=== PATIENT | male | born 1935 | race Caucasian/White ===

== ENCOUNTER 2017-12-11 20:46 | Emergency (ER) | payer MEDICARE, MEDICAID ==
[2017-12-11 21:23] LABS: #Eosinphils 0.3 thou/uL (0.0-0.7); #Lymphocytes 1.4 thou/uL (1.20-3.40); #Monocytes 1.1 thou/uL (0.11-0.59); #Neutrophils 8.1 thou/uL (1.40-6.50); %Basophils 0.3 % (0.0-1.0); %Eosinophils 2.6 % (0.0-10.0); %Lymphocytes 12.9 % (21.0-51.0); %Monocytes 10.2 % (0.0-10.0); Hemoglobin 12.8 g/dL (14.0-18.0); Mean Corpuscular HGB CONC 32.3 g/dL (32.0-36.0); Mean Corpuscular Hemoglobin 30.2 pg (27.0-31.0); Mean Corpuscular Volume 93.5 fl (80.0-94.0); Mean Platelet Volume 7.8 fL (7.4-10.4); Platelet Count 220 thou/uL (130-400); RBC Distribution Width 13.7 % (11.5-14.5); Red Blood Cell (RBC) Count 4.25 mill/uL (4.70-6.10)
[2017-12-11 21:29] LABS: INR-International Normal Ratio 2.2; PTT 34.1 SEC (22.9-36.1); Prothrombin Time 25.5 SEC (12.0-14.7)
[2017-12-11 21:41] LABS: ALT (SGPT) 26 U/L (8-55); AST (SGOT) 21 U/L (5-34); Albumin 4.1 g/dL (3.4-4.8); Alkaline Phosphatase 142 U/L (40-150); Anion Gap 14 mmol/L (10-20); BUN (Urea Nitrogen) 39 mg/dL (8.4-25.7); Bilirubin, Total 0.6 mg/dL (0.2-1.2); Calc. Creatinine Clearance 0 mL/min (70-130); Calcium 9.3 mg/dL (7.8-10.44); Carbon Dioxide 29 mmol/L (23-31); Chloride 98 mmol/L (98-107); Estimated GFR-MDRD 51; Globulin 4.1 g/dL (2.4-3.5); Glucose 180 mg/dL (83-110); Potassium 4.6 mmol/L (3.5-5.1); Protein, Total 8.2 g/dL (5.8-8.1); Sodium 136 mmol/L (136-145)
[2017-12-11 21:45] LABS: CKMB 2.5 ng/mL (0-6.6); Troponin I 0.023 ng/mL (< 0.028)
--- NOTE | 2017-12-11 22:23 | CT ---
CT BRAIN WITHOUT CONTRAST: Comparison: 06-18-14 History: Syncope and collapse. Patient fell forward on to his face and both wrists. Technique: Multiple contiguous axial images were obtained in a CT of the brain without contrast. FINDINGS: The brain is normal in morphology and attenuation without focal lesions or confluent areas of infarct ion. There is no evidence of hydrocephalus, intracranial hemorrhage or extraaxial fluid collection. T he calvarium and overlying soft tissues are unremarkable. The visualized paranasal sinuses and mastoi d air cells are well aerated. IMPRESSION: No evidence of acute intracranial abnormality. POS: [facility]
--- NOTE | 2017-12-11 22:48 | RAD ---
SINGLE VIEW OF THE CHEST: Comparison: 07-30-14, 05-13-15 History: Dizziness. FINDINGS: Single view of the chest shows a cardiomediastinal silhouette which is upper limits of normal in size with atherosclerotic calcifications in the aorta. There is no evidence of consolidation, mass or ple ural effusion. IMPRESSION: No evidence of acute cardiopulmonary disease. Atherosclerotic disease. POS: [facility]
--- NOTE | 2018-01-14 15:03 | EKG ---
Test Reason : FALL Blood Pressure : / mmHG Vent. Rate : 094 BPM Atrial Rate : 098 BPM P-R Int : 000 ms QRS Dur : 088 ms QT Int : 358 ms P-R-T Axes : 060 035 059 degrees QTc Int : 447 ms Undetermined rhythm Low voltage QRS Inferior infarct , age undetermined Abnormal ECG Confirmed by BEATA KOVACS ([id number]), video news editor CHUNG FARIAS ([id number]) on 01/14/2018 3:02:24 PM Referred By: MARGUERITE Confirmed By:BEATA KOVACS
== END 2017-12-11 22:52 | disposition home or self-care (01) ==
LOC: ERS 20:46
DX: S00.33XA Contusion of nose, initial encounter (principal); S00.81XA Abrasion of other part of head, initial encounter; I48.91 Unspecified atrial fibrillation; J44.9 Chronic obstructive pulmonary disease, unspecified; I11.0 Hypertensive heart disease with heart failure; I50.9 Heart failure, unspecified; M06.9 Rheumatoid arthritis, unspecified; Z87.891 Personal history of nicotine dependence; Z79.82 Long term (current) use of aspirin; Z79.899 Other long term (current) drug therapy; W07.XXXA Fall from chair, initial encounter
CPT/HCPCS: 70450; 71045; 80053; 82553; 84484; 85025; 85610; 85730; 93005

== ENCOUNTER 2018-08-28 15:03 | Outpatient (CLI) | payer MEDICARE, MEDICAID ==
--- NOTE | 2018-08-28 17:36 | RAD ---
CHEST 2 VIEWS: Date: 08/28/18 COMPARISON: 05/13/15. 12/11/17. HISTORY: COPD. Chest infection. FINDINGS: Atherosclerosis of aorta. Upper normal cardiac silhouette. Pulmonary vessels and hilum are normal. Co stophrenic angles are clear. Lungs are hyperinflated. No consolidation or masses. No pneumothorax or osseous abnormalities. IMPRESSION: 1. Hyperinflation. Chronic changes. 2. Atherosclerosis. POS: [facility]
== END 2018-08-28 15:04 | disposition home or self-care (01) ==
LOC: BICRAD 15:03
PROVIDERS: ATTEND Family Medicine
DX: J44.0 Chronic obstructive pulmonary disease with (acute) lower respiratory infection (principal); J96.11 Chronic respiratory failure with hypoxia; I48.2 Chronic atrial fibrillation; R05 Cough; I70.0 Atherosclerosis of aorta; R91.8 Other nonspecific abnormal finding of lung field
CPT/HCPCS: 71046

== ENCOUNTER 2018-09-02 09:56 | Inpatient (IN) | payer MEDICARE, MEDICAID ==
[2018-09-02] MEDS ORDERED: Albuterol Sulfate 2.5 mg/0.5 ml Neb ONE ×3 (10:33→10:34)
[2018-09-02] MEDS ORDERED: Albuterol Sulfate 2.5 mg/3 ml Neb ONE (10:34)
[2018-09-02 10:35] LABS: Lactate 0.34 mmol/L (0.50-2.20)
[2018-09-02 10:52] LABS: ALT (SGPT) 26 U/L (8-55); AST (SGOT) 30 U/L (5-34); Albumin 3.6 g/dL (3.4-4.8); Alkaline Phosphatase 142 U/L (40-150); Anion Gap 11 mmol/L (10-20); BUN (Urea Nitrogen) 29 mg/dL (8.4-25.7); Bilirubin, Total 0.7 mg/dL (0.2-1.2); Calc. Creatinine Clearance 0 mL/min (70-130); Calcium 9.4 mg/dL (7.8-10.44); Carbon Dioxide 35 mmol/L (23-31); Chloride 96 mmol/L (98-107); Estimated GFR-MDRD 69; Globulin 3.9 g/dL (2.4-3.5); Glucose 159 mg/dL (83-110); Potassium 4.4 mmol/L (3.5-5.1); Protein, Total 7.5 g/dL (5.8-8.1); Sodium 138 mmol/L (136-145)
[2018-09-02 10:56] LABS: #Eosinphils 0.1 thou/uL (0.0-0.7); #Lymphocytes 0.8 thou/uL (1.20-3.40); #Monocytes 0.6 thou/uL (0.11-0.59); #Neutrophils 7.5 thou/uL (1.40-6.50); %Eosinophils 1.3 % (0.0-10.0); %Lymphocytes 8.9 % (21.0-51.0); %Monocytes 6.3 % (0.0-10.0); %Neutrophils 83.5 % (42.0-75.0); Hemoglobin 12.7 g/dL (14.0-18.0); Hypochromia SLIGHT = 6-15 cells (100X) (0-5/hpf); MDiff Complete? YES; Mean Corpuscular HGB CONC 29.5 g/dL (32.0-36.0); Mean Corpuscular Hemoglobin 28.1 pg (27.0-31.0); Mean Corpuscular Volume 95.5 fL (78.0-98.0); Mean Platelet Volume 7.5 fL (7.4-10.4); Platelet Count 205 thou/uL (130-400); Red Blood Cell (RBC) Count 4.53 mill/uL (4.70-6.10); White Blood Cell (WBC) Count 8.9 thou/uL (4.8-10.8)
[2018-09-02 11:03] LABS: Bilirubin Negative (Negative); Blood, Urine Negative (Negative); Glucose, Urine (Dipstick) Negative (Negative); Leukocyte Moderate (Negative); Nitrite Negative (Negative); Protein, Urine (Dipstick) Negative (Neg-Trace); Specific Gravity, Urine 1.015 (1.005-1.030); Urobilinogen 0.2 mg/dL (0.2-1.0)
[2018-09-02 11:10] LABS: Clarity CLEAR (Clear)
[2018-09-02 11:12] LABS: Bacteria/HPF None Seen HPF (None Seen); Hyaline Casts/LPF NONE SEEN LPF (0-3 Hyaline); RBC/HPF None Seen HPF (0-3); Squamous Epithelial 0-3 HPF (0-3); WBC/HPF 0-3 HPF (0-3)
--- NOTE | 2018-09-02 12:09 | RAD ---
PORTABLE CHEST: Date: 09/02/18 HISTORY: Pneumonia follow-up. Congestion and cough. COMPARISON: 08/28/18. FINDINGS: Increased parenchymal density in the right lower lobe when compared to recent exam is suspicious for focal infiltrate or atelectasis. There is mild vascular engorgement, similar to prior exam. Heart size upper normal and stable. IMPRESSION: Question right lower lobe infiltrate or atelectasis, new from recent exam. POS: [facility]
[2018-09-02] MEDS ORDERED: Piperacillin/Tazobactam 4.5 GM VIAL ONE (12:10)
[2018-09-02 13:34] LABS: INR-International Normal Ratio 2.3; PTT 38.9 SEC (22.9-36.1); Prothrombin Time 25.1 SEC (12.0-14.7)
[2018-09-02 13:44] LABS: Actual Bicarbonate (HCO3a) 38.7 mEq/L (22-28); Analyzer IN Cardio ER; Base Excess (BEa) 10.3 mEq/L (-2.0 to +3.0); CO2 Tension 73.3 mmHg (35.0-45.0); Calcium, Ionized 1.12 mmol/L (1.12-1.30); Hemoglobin (Hb) 12.5 g/dL (14.0-18.0); O2 Tension (PaO2) 62.7 mmHg (> 60.0); Potassium - ABG Lab 3.89 mmol/L (3.70-5.30); pH, Arterial 7.34 (7.35-7.45)
[2018-09-02 13:45] LABS: ALV-art Gradient 95.225 (0-20); Puncture Site RBA
--- NOTE | 2018-09-02 13:50 | HP ---
PRIMARY CARE PHYSICIAN: Cristine Brewer M.D. CHIEF COMPLAINT: Acute on chronic respiratory failure with hypoxia, community- acquired pneumonia. HISTORY OF PRESENT ILLNESS: This is an 82-year-old male, who has underlying history of COPD, who came to emergency room with complaint of shortness of breath. Patient reports that, for the last one week, he was having shortness of breath and he was evaluated by primary care physician and patient was given oral antibiotic therapy and steroid without any significant improvement. His oxygen saturation was low and that is why he was recently arranged home oxygen. Last night, he was using oxygen, but in the middle of night, he was feeling palpitations. His heart rate was racing fast. He reports that his heart rate was around 145 and irregular. He does have a history of atrial fibrillation. He was feeling shortness of breath, but he did not have any dizziness. He was coughing, which is normal for him. He denied any chest pain. He denied any pleurisy. He denied any hemoptysis. Patient increased his level of oxygen, but still his saturation was not going up. Per patient, it was remaining in 70s when he was checking with pulse oximetry at home and that is why the patient 's family member called paramedics, and subsequently, the patient was brought to ER. When patient came to ER, he was in respiratory distress. He was in atrial fibrillation with RVR. He was hypoxic. He was not maintaining saturation with nasal cannula oxygen and that is why BiPAP was initiated and after that the patient was feeling better. When I saw him in the emergency room, at that time, respiratory therapy was done off BiPAP, but his oxygen saturation was going variably from 87-90s. He was able to talk in full sentences, but he was gasping for air as well. He denies any UTI symptoms. He denies any constipation, diarrhea, melena, hematochezia. He denies any pain anywhere in his body. He denies any recent upper respiratory infection. He denies any pleurisy. EMERGENCY ROOM COURSE: Patient is given vancomycin 1 gram, Levaquin 750 mg, Zosyn 4.5 grams, albuterol 10 mg, and IV fluid 1 liter. REVIEW OF SYSTEMS: The following complete review of systems was negative, unless otherwise mentioned in the HPI or below: Constitutional: Weight loss or gain, ability to conduct usual activities. Skin: Rash, itching. Eyes: Double vision, pain. ENT/Mouth: Nose bleeding, neck stiffness, pain, tenderness. Cardiovascular: Palpitations, dyspnea on exertion, orthopnea. Respiratory: Shortness of breath, wheezing, cough, hemoptysis, fever, or night sweats. Gastrointestinal: Poor appetite, abdominal pain, heartburn, nausea, vomiting, constipation, or diarrhea. Genitourinary: Urgency, frequency, dysuria, nocturia. Musculoskeletal: Pain, swelling. Neurologic/Psychiatric: Anxiety, depression. Allergy/Immunologic: Skin rash, bleeding tendency. Please see my HPI for pertinent positive and negative. All other review of systems reviewed and negative except as mentioned in the HPI. CURRENT HOME MEDICATIONS: The patient did not bring his home medications, so we are not able to verify his home medication. Based on emergency room record, the patient is on Flomax 0.4 mg, digoxin 125 mcg, torsemide 20 mg, potassium 1 tablet, and albuterol nebulization frequency is not known. PAST MEDICAL HISTORY: Chronic obstructive pulmonary disease, chronic respiratory failure on home oxygen; hypertension; chronic diastolic heart failure; history of TIA; osteoarthritis; hypertension. PAST SURGICAL HISTORY: Right hip replacement and hernia repair. PAST PSYCHIATRIC HISTORY: Reviewed and negative. ALLERGIES: No known drug allergy. FAMILY HISTORY: No strong family history of premature coronary artery disease, stroke, or cancer. SOCIAL HISTORY: Patient is a former smoker. He quit smoking few years ago. He drinks alcohol almost every day basis. He is a former drug abuser; he abused heroin. PHYSICAL EXAMINATION: VITAL SIGNS: On arrival, blood pressure 123/85, pulse 133 and irregular, respiratory rate 24, temperature 98.5, saturation 88% on 2 liter oxygen. Weight 88 kilograms. GENERAL: The patient is currently in [id number] respiratory distress. HEENT: Head: Normocephalic, atraumatic. Eyes: Pupils round and reactive to light. Extraocular muscle intact. ENT: Oropharynx within normal limit, somewhat dry-appearing mucous membrane, no oral lesions. No pharyngeal erythema. He does not have any teeth. NECK: Supple, no JVD, no thyromegaly, no carotid bruit. LUNGS: Air entry significantly reduced bilaterally. He has just a few scattered rales predominantly right lung base. He does have pursed lip breathing as well as muscles of respiration in use. CARDIAC: S1 and S2, irregularly irregular. No murmur elicited, no gallop, no rub. ABDOMEN: Soft, bowel sounds present, nontender, nondistended. No organomegaly , no mass, no suprapubic tenderness. BACK EXAMINATION: Unremarkable, no CVA tenderness. EXTREMITIES: Upper extremity, passive movement of all joints are normal. Lower extremity, bilateral lower extremity chronic skin changes with hyperpigmentation noted. Good distal pulsation. NEUROLOGIC: Nonfocal examination. He moves all 4 limbs. Speech normal. PSYCHIATRIC: Anxious affect. HEMATOLOGICAL SYSTEM: No lymphadenopathy. SKIN: Hyperpigmentation and chronic venous insufficiency type of changes on both lower extremities. SIGNIFICANT LABORATORY DATA: CBC: WBC 8.9, hemoglobin 12.7, platelets 205 with a left shift. BMP: Sodium 138, potassium 4.4, chloride 96, carbon dioxide 35, anion gap 11, BUN 29, creatinine 1.03, glucose 159, calcium 9.4. Lactic acid 0.7. LFT: AST 30, ALT 26, alkaline phosphatase 142, albumin 3.6. BNP 363.5. Urinalysis: Leukocyte esterase moderate. Influenza A and B negative. Chest x-ray, based on my review, right lower lobe infiltration. ASSESSMENT AND PLAN: 1. Acute on chronic respiratory failure with hypoxia and hypercapnia. We will do ABG. The patient has elevated carbon dioxide level, suspecting CO2 retention. We will try to keep oxygen saturation around 90s to prevent hypercapnia. Pulmonary group will be consulted. We will closely monitor for any hemodynamic compromise. 2. Right community-acquired pneumonia, right lower lobe, suspecting streptococcal. His influenza screen is negative. The patient will be given broad-spectrum antibiotic therapy with cefepime, Levaquin, and vancomycin given his chronic obstructive pulmonary disease history, Mucinex 600 mg twice daily. 3. Chronic obstructive pulmonary disease exacerbation. Patient will be given Solu-Medrol 40 mg IV q.6 hourly, DuoNeb every 4 hourly and p.r.n. basis, Dulera 2 puffs inhalation b.i.d., Mucinex 600 mg twice daily. Patient will be given flu and pneumonia vaccination while in hospital. The patient is also on broad- spectrum antibiotic therapy for pneumonia. Pulmonary group will be consulted. We will consider BiPAP as needed basis and closely monitor in hospital. 4. Elevated BNP. We will do echocardiography to assess ejection fraction and other structural abnormality to rule out any cor pulmonale. 5. Urinary tract infection. We will send urine culture and start on broad- spectrum antibiotic therapy. 6. Atrial fibrillation with rapid ventricular response. We will monitor on telemetry floor. We will continue with the digoxin. We will check PT/INR, as the patient states that he is on warfarin therapy. We will obtain patient's home medication and resume while in hospital. We will consider adding Cardizem for rate control if blood pressure permits. 7. Benign enlargement of prostate. Patient is taking Flomax, which we will continue while in hospital. 8. Chronic diastolic heart failure. The patient currently appears to be euvolemic. We are going to obtain echocardiography and continue torsemide 20 mg daily. 9. Deep venous thrombosis prophylaxis. The patient is already on warfarin therapy suspected. We will check PT/INR. If the patient is not on any blood thinner medicine, then he will benefit from chronic anticoagulation. 10. Gastrointestinal prophylaxis. Pepcid 20 mg p.o. b.i.d. CODE STATUS: I spoke with the patient. Patient is a FULL CODE. The patient's daughter is surrogate decision maker. Disposition plan based on clinical course. We are expecting patient's stay in hospital more than 2 midnights. Plan of care discussed with the patient in detail. MTDD
[2018-09-02] MEDS ORDERED: Ondansetron PF 4 MG/2 ML Vial IVP PRN ×2 (14:13→14:19)
[2018-09-02] MEDS ORDERED: Acetaminophen 325 MG TAB PO PRN ×2 (14:13→14:19)
[2018-09-02] MEDS ORDERED: Ondansetron ODT 4 MG TAB SL PRN (14:13)
[2018-09-02] MEDS ORDERED: cloNIDine 0.1 MG TAB PO PRN (14:19)
[2018-09-02] MEDS ORDERED: Calcium Carbonate 500 MG ChewTAB PO PRN (14:19)
[2018-09-02] MEDS ORDERED: Cepastat Lozenges 1 LOZ PO PRN (14:19)
[2018-09-02] MEDS ORDERED: Artificial Tear Sol 15 ML BOT EA EYE PRN (14:19)
[2018-09-02] MEDS ORDERED: Eucerin (Mineral Oil/Petrolatum,White) 30 gm Jar TOP PRN (14:19)
[2018-09-02] MEDS ORDERED: Ondansetron ODT 4 MG TAB PO PRN (14:19)
[2018-09-02] MEDS ORDERED: Loratadine 10 MG TAB PO PRN (14:19)
[2018-09-02] MEDS ORDERED: Loperamide HCl 2 MG CAP PO PRN (14:19)
[2018-09-02] MEDS ORDERED: hydrALAZINE 20 MG/ML VIAL SLOW IVP PRN (14:19)
[2018-09-02] MEDS ORDERED: Diabetic Tussin 200 MG/10 ML UDCUP PO PRN (14:19)
[2018-09-02] MEDS ORDERED: Sodium Chloride 0.65% Nasal 44 ML BOT EA NARE PRN (14:19)
[2018-09-02] MEDS ORDERED: Senokot S 8.6-50 MG TAB PO PRN (14:19)
[2018-09-02] MEDS ORDERED: HYDROcodone/Acetaminophen 5/325 mg Tablet PO PRN (14:19)
[2018-09-02] MEDS ORDERED: Bisacodyl 5 MG TAB PO PRN (14:19)
[2018-09-02] MEDS ORDERED: Bisacodyl 10 MG SUPP PR PRN (14:19)
[2018-09-02] MEDS: Cefepime 2 GM in Sodium Chloride 0.9% 100 ML IVPB SCH (14:57)
[2018-09-02 15:22] VITALS: BMI 24.9
--- NOTE | 2018-09-02 17:03 | CON ---
DATE OF CONSULTATION: 09/02/2018 CONSULTING PHYSICIAN: Mariana Red M.D. REASON FOR CONSULTATION: Pneumonia and COPD exacerbation. Following up with 70 minutes time, of that time, 50% was spent with the patient and/or the patient se en in the hospital. HISTORY OF PRESENT ILLNESS: This is an 82-year-old male who came to the hospital. He has basically been sick for the last 2-3 weeks. He has had cough and congestion. He had a course of antibiotics a nd steroids from his primary care physician. He did not improve. Last week, he was seen in the [facility] and was prescribed some Zithromax. He was also noted to be hypoxic and was started on ho ok oxygen through [facility]. He came in today continued to be short of breath, he was fo und to be hypoxic, also was having a rapid heart rate. He was given breathing treatments, antibiotic s, and placed on BiPAP and subsequently brought to the intermediate care unit. PAST MEDICAL HISTORY: 1. COPD. 2. Chronic hypoxic respiratory failure. 3. Hypertension. 4. Chronic diastolic heart failure. 5. Paroxysmal atrial fibrillation. 6. TIAs. 7. Osteoarthritis. 8. Hypertension. PAST SURGICAL HISTORY: 1. Right hip replacement. 2. Hernia repair. PSYCHIATRIC HISTORY: Unremarkable. ALLERGIES: None. FAMILY MEDICAL HISTORY: Unremarkable. SOCIAL HISTORY: Quit smoking about 10 years ago. Drinks alcohol daily. 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 REVIEW OF SYSTEMS: A 10-point review of systems otherwise negative. MEDICATIONS PRIOR TO ADMISSION: The patient is currently not sure of his medications. PHYSICAL EXAMINATION: VITAL SIGNS: Temperature 97.8, pulse 133, respirations 24, O2 sat 88% on 2 liters now, 99% on 4 lite rs. GENERAL: He is awake, alert, conversant, and in no profound distress. His generalized appearance is disheveled. HEENT: Unremarkable. NECK: No adenopathy or JVD. LUNGS: Crackles in the bases bilaterally. CARDIAC: S1, S2 regular to tachycardic. ABDOMEN: Soft, nontender. EXTREMITIES: No clubbing, cyanosis, or edema. LABORATORY DATA: White blood cell count 8.9, hematocrit 43.2, platelet count 205. INR 2.3, pH 7.34, pCO2 of 73, PO2 of 62. Sodium 130, potassium 4.4, chloride 96, CO2 35, BUN 29, creatinine 1.0, gluc ose 159. Lactate 0.7. BNP 363. LABORATORY AND X-RAY FINDINGS: Chest x-ray shows right lower lobe infiltrate hard to know if this is acute or chronic. ASSESSMENT: 1. Right lower lobe pneumonia. 2. Chronic obstructive pulmonary disease exacerbation. 3. Chronic hypoxic and hypercapnic respiratory failure. RECOMMENDATIONS: I reviewed the medications and agree with the antibiotics, breathing treatments, st eroids, and low flow oxygen. He can use BiPAP as needed. I will be happy to follow with you.
[2018-09-02] MEDS: Mometasone/Formoterol 120 PUFF INHALER INH SCH (18:48)
[2018-09-02] MEDS: Famotidine 20 MG TAB PO SCH (20:38)
[2018-09-02] MEDS: guaiFENesin ER 600 MG TAB PO SCH (20:38)
[2018-09-03] MEDS: Vancomycin HCl 1 GM in Premix Bag 1 BAG IVPB SCH ×2 (00:36→12:05)
[2018-09-03] MEDS: Cefepime 2 GM in Sodium Chloride 0.9% 100 ML IVPB SCH ×2 (03:01→15:40)
[2018-09-03 04:47] LABS: #Basophils 0.1 thou/uL (0.0-0.2); #Lymphocytes 0.3 thou/uL (1.20-3.40); #Monocytes 0.1 thou/uL (0.11-0.59); #Neutrophils 7.8 thou/uL (1.40-6.50); %Basophils 1.5 % (0.0-1.0); %Eosinophils 0.1 % (0.0-10.0); %Lymphocytes 3.5 % (21.0-51.0); %Neutrophils 93.9 % (42.0-75.0); Mean Corpuscular HGB CONC 30.5 g/dL (32.0-36.0); Mean Corpuscular Hemoglobin 29.2 pg (27.0-31.0); Mean Corpuscular Volume 95.7 fL (78.0-98.0); Mean Platelet Volume 7.8 fL (7.4-10.4); Platelet Count 190 thou/uL (130-400); RBC Distribution Width 12.9 % (11.5-14.5); Red Blood Cell (RBC) Count 4.12 mill/uL (4.70-6.10); White Blood Cell (WBC) Count 8.4 thou/uL (4.8-10.8)
[2018-09-03 05:09] LABS: ALT (SGPT) 25 U/L (8-55); AST (SGOT) 28 U/L (5-34); Albumin 3.5 g/dL (3.4-4.8); Alkaline Phosphatase 127 U/L (40-150); Anion Gap 13 mmol/L (10-20); BUN (Urea Nitrogen) 30 mg/dL (8.4-25.7); Bilirubin, Total 0.7 mg/dL (0.2-1.2); Calc. Creatinine Clearance 58 mL/min (70-130); Calcium 8.7 mg/dL (7.8-10.44); Carbon Dioxide 30 mmol/L (23-31); Chloride 94 mmol/L (98-107); Estimated GFR-MDRD 56; Globulin 3.8 g/dL (2.4-3.5); Glucose 257 mg/dL (83-110); Potassium 4.7 mmol/L (3.5-5.1); Protein, Total 7.3 g/dL (5.8-8.1); Sodium 132 mmol/L (136-145)
[2018-09-03] MEDS ORDERED: WARFARIN PO SCH (07:53)
[2018-09-03] MEDS: Mometasone/Formoterol 120 PUFF INHALER INH SCH ×2 (08:15→18:20)
[2018-09-03] MEDS: Torsemide 20 MG TAB PO SCH (08:52)
[2018-09-03] MEDS: Famotidine 20 MG TAB PO SCH ×2 (08:52→20:32)
[2018-09-03] MEDS: guaiFENesin ER 600 MG TAB PO SCH ×2 (08:52→20:40)
[2018-09-03] MEDS: Potassium Chloride 10 MEQ TAB PO SCH (08:52)
[2018-09-03] MEDS: Saccharomyces boulardii 250 MG CAP PO SCH (08:52)
[2018-09-03] MEDS ORDERED: Digoxin 0.125 MG TAB PO SCH (09:00)
--- NOTE | 2018-09-03 11:07 | PDOC.PN ---
- Subjective Encounter Start Date: 09/03/18 Encounter Start Time: 09:45 -: old records requested/rev Patient seen and examined. No new complaints. No overnight events has less cough, less dyspnea - Objective Resuscitation Status: Resuscitation Status FULL:Full Resuscitation MAR Reviewed: Yes Vital Signs & Weight: Vital Signs (12 hours) Temp Pulse Resp BP BP Pulse Ox 09/03/18 08:52 125 H 123/74 09/03/18 08:16 92 L 09/03/18 08:12 108 H 22 H 92 L 09/03/18 07:59 92 L 09/03/18 07:18 98.1 F 88 18 132/80 92 L 09/03/18 04:00 98.4 F 84 26 H 124/70 93 L 09/03/18 03:02 77 20 95 09/03/18 00:00 98.5 F 80 24 H 119/62 95 Weight Weight 197 lb I&O: 09/02/18 09/03/18 09/04/18 06:59 06:59 06:59 Intake Total 2250 Output Total 1400 Balance 850 Result Diagrams: 09/03/18 03:53 09/03/18 03:53 EKG Reviewed by me: Yes (afib rate controlled) Phys Exam - Physical Examination Constitutional: NAD HEENT: PERRLA, moist MMs, sclera anicteric Neck: no JVD, supple Respiratory: wheezing present right base rales, reduced air entry Cardiovascular: no significant murmur, irregular Gastrointestinal: soft, non-tender, no distention, positive bowel sounds Musculoskeletal: no edema, pulses present chronic skin changes Neurological: non-focal, normal sensation, moves all 4 limbs Lymphatic: no nodes Psychiatric: normal affect, A&O x 3 Skin: no rash, normal turgor Dx/Plan (1) Acute on chronic respiratory failure with hypoxia and hypercapnia Code(s): J96.21 - ACUTE AND CHRONIC RESPIRATORY FAILURE WITH HYPOXIA; J96.22 - ACUTE AND CHRONIC RESPIRATORY FAILURE WITH HYPERCAPNIA Status: Acute (2) Atrial fibrillation with RVR Code(s): I48.91 - UNSPECIFIED ATRIAL FIBRILLATION Status: Acute (3) COPD exacerbation Code(s): J44.1 - CHRONIC OBSTRUCTIVE PULMONARY DISEASE W (ACUTE) EXACERBATION Status: Acute (4) Community acquired bacterial pneumonia Code(s): J15.9 - UNSPECIFIED BACTERIAL PNEUMONIA Status: Acute (5) Elevated brain natriuretic peptide (BNP) level Code(s): R79.89 - OTHER SPECIFIED ABNORMAL FINDINGS OF BLOOD CHEMISTRY Status : Acute (6) BPH (benign prostatic hyperplasia) Code(s): N40.0 - BENIGN PROSTATIC HYPERPLASIA WITHOUT LOWER URINRY TRACT SYMP Status: Chronic (7) Chronic anticoagulation Code(s): Z79.01 - ALF (CURRENT) USE OF ANTICOAGULANTS Status: Chronic (8) Chronic arthritis Code(s): M19.90 - UNSPECIFIED OSTEOARTHRITIS, UNSPECIFIED SITE Status: Chronic (9) Hypertension Code(s): I10 - ESSENTIAL (PRIMARY) HYPERTENSION Status: Chronic - Plan cont current plan of care, continue antibiotics, respiratory therapy * continue cefepime, levaquin, vancomycin * continue current optimum medical support for COPD as below * follow culture * pulmonary recommendation appreciated * medication reviewed as below * symptomatic treatment * echo today * repeat labs tomorrow. Review of Systems - Review of Systems Constitutional: weakness. negative: fever, chills, sweats, malaise, other Respiratory: Cough, Shortness of Breath, SOB with Excertion, Wheezing. negative : Dry, Hemoptysis, Pleuritic Pain, Sputum Cardiovascular: negative: chest pain, palpitations, orthopnea, paroxysmal nocturnal dyspnea, edema, light headedness, other Gastrointestinal: negative: Nausea, Vomiting, Abdominal Pain, Diarrhea, Constipation, Melena, Hematochezia, Other Genitourinary: negative: Dysuria, Frequency, Incontinence, Hematuria, Retention , Other Musculoskeletal: negative: Neck Pain, Shoulder Pain, Arm Pain, Back Pain, Hand Pain, Leg Pain, Foot Pain, Other Skin: negative: Rash, Lesions, Bill, Bruising, Other - Medications/Allergies Allergies/Adverse Reactions: Allergies Allergy/AdvReac Type Severity Reaction Status Date / Time No Known Drug Allergies Allergy Verified 07/30/14 22:17 Medications: Current Medications Acetaminophen (Tylenol) 650 mg PO Q4H PRN PRN Reason: Headache/Fever/Mild Pain (1-3) Hydrocodone Bitart/Acetaminophen ([place] 5/325) 1 tab PO Q4H PRN PRN Reason: Moderate Pain (4-6) Albuterol/Ipratropium (Duoneb) 3 ml NEB [id number] JONATHAN Last Admin: 09/03/18 08:12 Dose: 3 ml Artificial Tears (Tears Renewed 15ml Bottle) 2 drop EA EYE PRN PRN PRN Reason: Dry Eyes Bisacodyl (Dulcolax) 10 mg PO DAILYPRN PRN PRN Reason: Constipation Bisacodyl (Dulcolax) 10 mg MI DAILYPRN PRN PRN Reason: Constipation Calcium Carbonate (Tums) 1,000 mg PO Q4H PRN PRN Reason: Heartburn or Indigestion Clonidine (Catapres) 0.1 mg PO Q4H PRN PRN Reason: SBP Greater Than 170 Diltiazem HCl (Cardizem Cd) 120 mg PO DAILY [facility] Last Admin: 09/03/18 08:52 Dose: 120 mg Famotidine (Pepcid) 20 mg PO BID [facility] Last Admin: 09/03/18 08:52 Dose: 20 mg Guaifenesin (Mucinex) 600 mg PO Q12HR [facility] Last Admin: 09/03/18 08:52 Dose: 600 mg Guaifenesin (Robitussin Sf) 200 mg PO Q4H PRN PRN Reason: Cough Hydralazine HCl (Apresoline) 10 mg SLOW IVP Q4H PRN PRN Reason: SBP Greater Than 170 Cefepime HCl 2 gm/ Sodium (Chloride) 100 mls @ 200 mls/hr IVPB 0300,1500 [facility] Last Admin: 09/03/18 03:01 Dose: 100 mls Levofloxacin 750 mg/ Device 150 mls @ 100 mls/hr IVPB Q24HR@1300 JONATHAN Vancomycin HCl 1 gm/ Device 200 mls @ 200 mls/hr IVPB 0100,1300 [facility] Last Admin: 09/03/18 00:36 Dose: 200 mls Loperamide HCl (Imodium) 2 mg PO PRN PRN PRN Reason: Diarrhea/Loose Stools Loratadine (Claritin) 10 mg PO DAILYPRN PRN PRN Reason: Sinus Symptoms Methylprednisolone Sodium Succinate (Solu-Medrol) 40 mg IVP Q6HR [facility] Last Admin: 09/03/18 05:46 Dose: 40 mg Mineral Oil/White Petrolatum (Eucerin Cream) 0 gm TOP BIDPRN PRN PRN Reason: Dry Skin Miscellaneous Medication (Pharmacy To Dose) 1 each IVPB PRN PRN PRN Reason: Pharmacy to dose Miscellaneous Medication (Pharmacy To Dose) 1 each PO .WARFARIN [facility] Mometasone Furoate/Formoterol Fumar (Dulera 200 Mcg/5 Mcg Inhaler) 2 puff INH BID-RT [facility] Last Admin: 09/03/18 08:15 Dose: 2 puff Non-Formulary Medication (Buprenorphine Hcl/Naloxone Hcl [Zubsolv]) 1 tab PO BID [facility] Ondansetron HCl (Zofran Odt) 4 mg PO Q6H PRN PRN Reason: Nausea/Vomiting Ondansetron HCl (Zofran) 4 mg IVP Q6H PRN PRN Reason: Nausea/Vomiting Potassium Chloride (Klor-Con 10) 10 meq PO QAM-WM [facility] Last Admin: 09/03/18 08:52 Dose: 10 meq Saccharomyces Boulardii (Florastor) 250 mg PO DAILY [facility] Last Admin: 09/03/18 08:52 Dose: 250 mg Senna/Docusate Sodium (Senokot S) 2 tab PO BID PRN PRN Reason: Constipation Sodium Chloride ([place] Nasal [place] 0.65%) 0 ml EA NARE QIDPRN PRN PRN Reason: Nasal Congestion Tamsulosin HCl (Flomax) 0.4 mg PO QPM [facility] Throat Lozenges (Cepastat Lozenges) 1 bucky PO Q2H PRN PRN Reason: Sore Throat Torsemide (Demadex) 20 mg PO DAILY [facility] Last Admin: 09/03/18 08:52 Dose: 20 mg Warfarin Sodium (Coumadin) 2 mg PO 1700 [facility]
--- NOTE | 2018-09-03 11:26 | PRG ---
DATE OF SERVICE: 09/03/2018 SUBJECTIVE: He is feeling better today. He did not have to use the BiPAP last night. OBJECTIVE: VITAL SIGNS: Temperature is 98.1, pulse between 88-125, blood pressure 123/74, O2 sat 92% on 4 liter s. HEENT: Unremarkable. NECK: No adenopathy, no JVD. LUNGS: No wheezing, but has some crackles in the right lower lobe. CARDIAC: S1 and S2 regular. ABDOMEN: Soft. EXTREMITIES: No edema. LABORATORY DATA: White blood cell count 8.4, hematocrit 39.5, platelet count 190. Sodium 132, potas sium 4.7, chloride 94, CO2 30, BUN 30, creatinine 1.2, glucose 257. ASSESSMENT: 1. Right lower lobe pneumonia. 2. Chronic obstructive pulmonary disease exacerbation. 3. Chronic hypoxic and hypercapnic respiratory failure. PLAN: The patient looks stable for transfer out to the floor. He needs to have his INR checked ally y since he is on Coumadin. BiPAP order could be stopped. I would anticipate him being able to go ho me in the next 24-48 hours.
[2018-09-03] MEDS ORDERED: Warfarin Sodium 2 MG TAB PO SCH (17:00)
[2018-09-03] MEDS ORDERED: Tamsulosin HCl 0.4 MG CAP PO SCH (21:00)
[2018-09-03] MEDS ORDERED: BUPRENORPHINE HCL PO SCH (21:00)
[2018-09-03] MEDS ORDERED: NALOXONE HCL PO SCH (21:00)
[2018-09-04 00:41] LABS: Vancomycin, Trough 17.2 ug/mL
[2018-09-04] MEDS: Vancomycin HCl 1 GM in Premix Bag 1 BAG IVPB SCH (01:12)
[2018-09-04] MEDS: Cefepime 2 GM in Sodium Chloride 0.9% 100 ML IVPB SCH ×2 (03:45→14:39)
[2018-09-04 04:44] LABS: #Lymphocytes 0.3 thou/uL (1.20-3.40); #Monocytes 0.5 thou/uL (0.11-0.59); #Neutrophils 11.8 thou/uL (1.40-6.50); %Eosinophils 0.1 % (0.0-10.0); %Lymphocytes 2.2 % (21.0-51.0); %Monocytes 3.7 % (0.0-10.0); Hemoglobin 11.7 g/dL (14.0-18.0); Mean Corpuscular HGB CONC 29.8 g/dL (32.0-36.0); Mean Corpuscular Hemoglobin 28.2 pg (27.0-31.0); Mean Corpuscular Volume 94.5 fL (78.0-98.0); Mean Platelet Volume 8.1 fL (7.4-10.4); Platelet Count 186 thou/uL (130-400); RBC Distribution Width 12.9 % (11.5-14.5); Red Blood Cell (RBC) Count 4.16 mill/uL (4.70-6.10); White Blood Cell (WBC) Count 12.5 thou/uL (4.8-10.8)
[2018-09-04 04:45] LABS: Prothrombin Time 30.8 SEC (12.0-14.7)
[2018-09-04 04:49] LABS: Anion Gap 13 mmol/L (10-20); BUN (Urea Nitrogen) 37 mg/dL (8.4-25.7); Calc. Creatinine Clearance 53 mL/min (70-130); Calcium 8.4 mg/dL (7.8-10.44); Carbon Dioxide 29 mmol/L (23-31); Chloride 94 mmol/L (98-107); Estimated GFR-MDRD 50; Glucose 261 mg/dL (83-110); Potassium 4.5 mmol/L (3.5-5.1); Sodium 131 mmol/L (136-145)
[2018-09-04] MEDS: Mometasone/Formoterol 120 PUFF INHALER INH SCH ×2 (07:56→18:39)
[2018-09-04] MEDS: Saccharomyces boulardii 250 MG CAP PO SCH (08:44)
[2018-09-04] MEDS: Potassium Chloride 10 MEQ TAB PO SCH (08:44)
[2018-09-04] MEDS: Doxycycline 100 MG CAP PO SCH ×2 (08:45→21:41)
[2018-09-04] MEDS: Torsemide 20 MG TAB PO SCH (08:46)
[2018-09-04] MEDS: Famotidine 20 MG TAB PO SCH ×2 (08:46→21:41)
[2018-09-04] MEDS: guaiFENesin ER 600 MG TAB PO SCH ×2 (08:46→21:41)
[2018-09-04] MEDS: Tamsulosin HCl 0.4 MG CAP PO SCH (09:41)
[2018-09-04] MEDS: Digoxin 0.125 MG TAB PO SCH (09:41)
--- NOTE | 2018-09-04 09:52 | PDOC.PN ---
- Subjective Encounter Start Date: 09/04/18 Encounter Start Time: 07:00 Patient seen and examined. No new complaints. No overnight events - Objective Resuscitation Status: Resuscitation Status FULL:Full Resuscitation MAR Reviewed: Yes Vital Signs & Weight: Vital Signs (12 hours) Temp Pulse Resp BP BP BP Pulse Ox 09/04/18 09:41 102 H 09/04/18 08:45 108 H 126/62 09/04/18 08:00 98.7 F 108 H 18 126/62 95 09/04/18 07:58 93 L 09/04/18 07:56 103 H 20 93 L 09/04/18 07:54 103 H 20 93 L 09/04/18 03:56 97.7 F 89 16 135/63 94 L 09/04/18 02:21 97 18 95 09/04/18 00:50 98 18 95 09/03/18 23:23 97.8 F 99 16 136/73 92 L Weight Weight 456 lb 12.765 oz I&O: 09/03/18 09/04/18 09/05/18 06:59 06:59 06:59 Intake Total 2250 2781 Output Total 1400 1875 Balance 850 906 Result Diagrams: 09/04/18 04:08 09/04/18 04:08 Phys Exam - Physical Examination Constitutional: NAD HEENT: PERRLA, moist MMs, sclera anicteric Neck: no JVD, supple Respiratory: wheezing present scattered rales+ Cardiovascular: RRR, no significant murmur, no rub Gastrointestinal: soft, non-tender, no distention, positive bowel sounds Musculoskeletal: no edema, pulses present Neurological: non-focal, normal sensation Lymphatic: no nodes Psychiatric: normal affect, A&O x 3 Skin: no rash, normal turgor Dx/Plan (1) Acute on chronic respiratory failure with hypoxia and hypercapnia Code(s): J96.21 - ACUTE AND CHRONIC RESPIRATORY FAILURE WITH HYPOXIA; J96.22 - ACUTE AND CHRONIC RESPIRATORY FAILURE WITH HYPERCAPNIA Status: Acute (2) Atrial fibrillation with RVR Code(s): I48.91 - UNSPECIFIED ATRIAL FIBRILLATION Status: Acute Comment: now rate controlled (3) COPD exacerbation Code(s): J44.1 - CHRONIC OBSTRUCTIVE PULMONARY DISEASE W (ACUTE) EXACERBATION Status: Acute (4) Community acquired bacterial pneumonia Code(s): J15.9 - UNSPECIFIED BACTERIAL PNEUMONIA Status: Acute (5) Elevated brain natriuretic peptide (BNP) level Code(s): R79.89 - OTHER SPECIFIED ABNORMAL FINDINGS OF BLOOD CHEMISTRY Status : Acute (6) BPH (benign prostatic hyperplasia) Code(s): N40.0 - BENIGN PROSTATIC HYPERPLASIA WITHOUT LOWER URINRY TRACT SYMP Status: Chronic (7) Chronic anticoagulation Code(s): Z79.01 - SLASH TRIMMER (CURRENT) USE OF ANTICOAGULANTS Status: Chronic (8) Chronic arthritis Code(s): M19.90 - UNSPECIFIED OSTEOARTHRITIS, UNSPECIFIED SITE Status: Chronic (9) Hypertension Code(s): I10 - ESSENTIAL (PRIMARY) HYPERTENSION Status: Chronic - Plan cont current plan of care, continue antibiotics, respiratory therapy * DC Vancomycin and levaquin * continue cefepime * add doxycycline * reduce solumedro 40 mg iv q 8 hourly * repeat labs tomorrow * ambulate with PT * medication reviewed as below * symptomatic treatment. Review of Systems - Review of Systems Eyes: negative: Pain, Vision Change, Conjunctivae Inflammation, Eyelid Inflammation, Redness, Other ENT: negative: Ear Pain, Ear Discharge, Nose Pain, Nose Discharge, Nose Congestion, Mouth Pain, Mouth Swelling, Throat Pain, Throat Swelling, Other Respiratory: Cough, Shortness of Breath, SOB with Excertion. negative: Dry, Hemoptysis, Pleuritic Pain, Sputum, Wheezing Cardiovascular: negative: chest pain, palpitations, orthopnea, paroxysmal nocturnal dyspnea, edema, light headedness, other Gastrointestinal: negative: Nausea, Vomiting, Abdominal Pain, Diarrhea, Constipation, Melena, Hematochezia, Other Genitourinary: negative: Dysuria, Frequency, Incontinence, Hematuria, Retention , Other Musculoskeletal: negative: Neck Pain, Shoulder Pain, Arm Pain, Back Pain, Hand Pain, Leg Pain, Foot Pain, Other Skin: negative: Rash, Lesions, Bill, Bruising, Other - Medications/Allergies Allergies/Adverse Reactions: Allergies Allergy/AdvReac Type Severity Reaction Status Date / Time No Known Drug Allergies Allergy Verified 07/30/14 22:17 Medications: Current Medications Acetaminophen (Tylenol) 650 mg PO Q4H PRN PRN Reason: Headache/Fever/Mild Pain (1-3) Hydrocodone Bitart/Acetaminophen ([place] 5/325) 1 tab PO Q4H PRN PRN Reason: Moderate Pain (4-6) Albuterol/Ipratropium (Duoneb) 3 ml NEB Q0UI-CH [facility] Last Admin: 09/04/18 07:54 Dose: 3 ml Artificial Tears (Tears Renewed 15ml Bottle) 2 drop EA EYE PRN PRN PRN Reason: Dry Eyes Bisacodyl (Dulcolax) 10 mg PO DAILYPRN PRN PRN Reason: Constipation Bisacodyl (Dulcolax) 10 mg [place] DAILYPRN PRN PRN Reason: Constipation Calcium Carbonate (Tums) 1,000 mg PO Q4H PRN PRN Reason: Heartburn or Indigestion Clonidine (Catapres) 0.1 mg PO Q4H PRN PRN Reason: SBP Greater Than 170 Digoxin (Lanoxin) 0.125 mg PO MoWeFr@0900 [facility] Last Admin: 09/04/18 09:41 Dose: 0.125 mg Diltiazem HCl (Cardizem Cd) 120 mg PO DAILY [facility] Last Admin: 09/04/18 08:45 Dose: 120 mg Doxycycline Hyclate (Vibramycin) 100 mg PO BID [facility] Last Admin: 09/04/18 08:45 Dose: 100 mg Famotidine (Pepcid) 20 mg PO BID [facility] Last Admin: 09/04/18 08:46 Dose: 20 mg Guaifenesin (Mucinex) 600 mg PO Q12HR [facility] Last Admin: 09/04/18 08:46 Dose: 600 mg Guaifenesin (Robitussin Sf) 200 mg PO Q4H PRN PRN Reason: Cough Hydralazine HCl (Apresoline) 10 mg SLOW IVP Q4H PRN PRN Reason: SBP Greater Than 170 Cefepime HCl 2 gm/ Sodium (Chloride) 100 mls @ 200 mls/hr IVPB 0300,1500 [facility] Last Admin: 09/04/18 03:45 Dose: 100 mls Loperamide HCl (Imodium) 2 mg PO PRN PRN PRN Reason: Diarrhea/Loose Stools Loratadine (Claritin) 10 mg PO DAILYPRN PRN PRN Reason: Sinus Symptoms Methylprednisolone Sodium Succinate (Solu-Medrol) 40 mg IVP Q8HR [facility] Mineral Oil/White Petrolatum (Eucerin Cream) 0 gm TOP BIDPRN PRN PRN Reason: Dry Skin Miscellaneous Medication (Pharmacy To Dose) 1 each PO .WARFARIN JONATHAN Mometasone Furoate/Formoterol Fumar (Dulera 200 Mcg/5 Mcg Inhaler) 2 puff INH BID-RT [facility] Last Admin: 09/04/18 07:56 Dose: 2 puff Ondansetron HCl (Zofran Odt) 4 mg PO Q6H PRN PRN Reason: Nausea/Vomiting Ondansetron HCl (Zofran) 4 mg IVP Q6H PRN PRN Reason: Nausea/Vomiting Buprenorphine Hcl/Naloxone Hcl [ Zubsolv] 1 Tab 0 each PO BID [facility] Potassium Chloride (Klor-Con 10) 10 meq PO QAM-WM [facility] Last Admin: 09/04/18 08:44 Dose: 10 meq Saccharomyces Boulardii (Florastor) 250 mg PO DAILY [facility] Last Admin: 09/04/18 08:44 Dose: 250 mg Senna/Docusate Sodium (Senokot S) 2 tab PO BID PRN PRN Reason: Constipation Last Admin: 09/04/18 09:45 Dose: 2 tab Sodium Chloride ([place] Nasal [place] 0.65%) 0 ml EA NARE QIDPRN PRN PRN Reason: Nasal Congestion Sodium Chloride (Flush - Normal Saline) 10 ml IVF Q12HR [facility] Sodium Chloride (Flush - Normal Saline) 10 ml IVF PRN PRN PRN Reason: Saline Flush Tamsulosin HCl (Flomax) 0.4 mg PO QAM [facility] Last Admin: 09/04/18 09:41 Dose: 0.4 mg Throat Lozenges (Cepastat Lozenges) 1 bucky PO Q2H PRN PRN Reason: Sore Throat Torsemide (Demadex) 20 mg PO DAILY [facility] Last Admin: 09/04/18 08:46 Dose: 20 mg Warfarin Sodium (Coumadin) 2 mg PO 1700 [facility]
--- NOTE | 2018-09-04 10:01 | PRG ---
DATE OF SERVICE: 09/04/2018 Mr. Verdugo is feeling better. PHYSICAL EXAMINATION: VITAL SIGNS: Temperature is 98.7, pulse 108, blood pressure 126/60, O2 saturation 95% on room air. HEENT: Unremarkable. NECK: No JVD. LUNGS: He has a mild expiratory wheeze bilaterally. CARDIAC: S1 and S2 regular. ABDOMEN: Soft. EXTREMITIES: No edema. LABORATORY DATA: White blood cell count 12.5, hematocrit 39, platelet count 186. Sodium 131, potass ium 4.5, chloride 94, CO2 29, BUN 37, creatinine 1.4, glucose 261. Echocardiogram demonstrates fairly normal EF with tricuspid regurgitation. ASSESSMENT: 1. Right lower lobe pneumonia. 2. Chronic obstructive pulmonary disease with exacerbation. 3. Chronic hypoxic and hypercapnic respiratory failure. PLAN: The patient can be converted over to oral antibiotics at any time. I think he will probably r brittany for discharge by tomorrow.
[2018-09-05] MEDS: Cefepime 2 GM in Sodium Chloride 0.9% 100 ML IVPB SCH ×2 (02:59→14:40)
[2018-09-05 05:55] LABS: INR-International Normal Ratio 2.7
[2018-09-05 06:04] LABS: #Lymphocytes 0.3 thou/uL (1.20-3.40); #Monocytes 0.4 thou/uL (0.11-0.59); %Eosinophils 0.2 % (0.0-10.0); %Lymphocytes 3.9 % (21.0-51.0); %Monocytes 4.9 % (0.0-10.0); %Neutrophils 91.1 % (42.0-75.0); Hemoglobin 12.4 g/dL (14.0-18.0); Mean Corpuscular HGB CONC 29.9 g/dL (32.0-36.0); Mean Corpuscular Hemoglobin 28.2 pg (27.0-31.0); Mean Corpuscular Volume 94.2 fL (78.0-98.0); Mean Platelet Volume 8.1 fL (7.4-10.4); Platelet Count 192 thou/uL (130-400); RBC Distribution Width 13.1 % (11.5-14.5); Red Blood Cell (RBC) Count 4.39 mill/uL (4.70-6.10); White Blood Cell (WBC) Count 7.6 thou/uL (4.8-10.8)
[2018-09-05] MEDS: Mometasone/Formoterol 120 PUFF INHALER INH SCH ×2 (06:06→18:47)
[2018-09-05 06:08] LABS: Anion Gap 11 mmol/L (10-20); BUN (Urea Nitrogen) 48 mg/dL (8.4-25.7); Calc. Creatinine Clearance 121 mL/min (70-130); Calcium 8.6 mg/dL (7.8-10.44); Carbon Dioxide 32 mmol/L (23-31); Chloride 95 mmol/L (98-107); Estimated GFR-MDRD 49; Glucose 184 mg/dL (83-110); Potassium 4.7 mmol/L (3.5-5.1); Sodium 133 mmol/L (136-145)
--- NOTE | 2018-09-05 07:50 | PDOC.PN ---
- Subjective Encounter Start Date: 09/05/18 Encounter Start Time: 06:30 pt is doing fine, has less cough and less dyspnea, now able to ambulate, no fever, no chest pain - Objective Resuscitation Status: Resuscitation Status FULL:Full Resuscitation MAR Reviewed: Yes Vital Signs & Weight: Vital Signs (12 hours) Temp Pulse Resp BP BP Pulse Ox 09/05/18 06:06 93 16 96 09/05/18 03:55 97.4 F L 88 16 143/70 H 93 L 09/05/18 02:40 87 18 91 L 09/04/18 23:59 97.8 F 104 H 20 104/71 09/04/18 22:49 98 20 93 L 09/04/18 20:00 98.3 F 94 16 136/64 94 L Weight Weight 463 lb 3.059 oz I&O: 09/04/18 09/05/18 09/06/18 06:59 06:59 06:59 Intake Total 2781 1670 Output Total 1875 600 Balance 906 1070 Result Diagrams: 09/05/18 05:33 09/05/18 05:33 Phys Exam - Physical Examination Constitutional: NAD HEENT: PERRLA, moist MMs, sclera anicteric Neck: no JVD, supple few wheeze and few scattered rales+ Cardiovascular: RRR, no significant murmur, no rub Gastrointestinal: soft, non-tender, no distention, positive bowel sounds Musculoskeletal: no edema, pulses present chronic skin changes Neurological: non-focal, normal sensation, moves all 4 limbs Lymphatic: no nodes Psychiatric: normal affect, A&O x 3 Skin: no rash, normal turgor Dx/Plan (1) Acute on chronic respiratory failure with hypoxia and hypercapnia Code(s): J96.21 - ACUTE AND CHRONIC RESPIRATORY FAILURE WITH HYPOXIA; J96.22 - ACUTE AND CHRONIC RESPIRATORY FAILURE WITH HYPERCAPNIA Status: Acute (2) Atrial fibrillation with RVR Code(s): I48.91 - UNSPECIFIED ATRIAL FIBRILLATION Status: Acute Comment: now rate controlled (3) COPD exacerbation Code(s): J44.1 - CHRONIC OBSTRUCTIVE PULMONARY DISEASE W (ACUTE) EXACERBATION Status: Acute (4) Community acquired bacterial pneumonia Code(s): J15.9 - UNSPECIFIED BACTERIAL PNEUMONIA Status: Acute (5) Elevated brain natriuretic peptide (BNP) level Code(s): R79.89 - OTHER SPECIFIED ABNORMAL FINDINGS OF BLOOD CHEMISTRY Status : Acute (6) BPH (benign prostatic hyperplasia) Code(s): N40.0 - BENIGN PROSTATIC HYPERPLASIA WITHOUT LOWER URINRY TRACT SYMP Status: Chronic (7) Chronic anticoagulation Code(s): Z79.01 - SENIOR CHEMIST (CURRENT) USE OF ANTICOAGULANTS Status: Chronic (8) Chronic arthritis Code(s): M19.90 - UNSPECIFIED OSTEOARTHRITIS, UNSPECIFIED SITE Status: Chronic (9) Hypertension Code(s): I10 - ESSENTIAL (PRIMARY) HYPERTENSION Status: Chronic - Plan cont current plan of care, continue antibiotics, respiratory therapy * today will reduce solumedrol * continue cefepime and doxycycline * will plan for discharge tomorrow morning * medication reviewed as below * symptomatic treatment. Review of Systems - Review of Systems ENT: negative: Ear Pain, Ear Discharge, Nose Pain, Nose Discharge, Nose Congestion, Mouth Pain, Mouth Swelling, Throat Pain, Throat Swelling, Other Respiratory: Cough, SOB with Excertion. negative: Dry, Shortness of Breath, Hemoptysis, Pleuritic Pain, Sputum, Wheezing Cardiovascular: negative: chest pain, palpitations, orthopnea, paroxysmal nocturnal dyspnea, edema, light headedness, other Gastrointestinal: negative: Nausea, Vomiting, Abdominal Pain, Diarrhea, Constipation, Melena, Hematochezia, Other Genitourinary: negative: Dysuria, Frequency, Incontinence, Hematuria, Retention , Other Musculoskeletal: negative: Neck Pain, Shoulder Pain, Arm Pain, Back Pain, Hand Pain, Leg Pain, Foot Pain, Other Skin: negative: Rash, Lesions, Bill, Bruising, Other - Medications/Allergies Allergies/Adverse Reactions: Allergies Allergy/AdvReac Type Severity Reaction Status Date / Time No Known Drug Allergies Allergy Verified 07/30/14 22:17 Medications: Current Medications Acetaminophen (Tylenol) 650 mg PO Q4H PRN PRN Reason: Headache/Fever/Mild Pain (1-3) Hydrocodone Bitart/Acetaminophen ([place] 5/325) 1 tab PO Q4H PRN PRN Reason: Moderate Pain (4-6) Albuterol/Ipratropium (Duoneb) 3 ml NEB [id number] JONATH[facility] Last Admin: 09/05/18 06:06 Dose: 3 ml Artificial Tears (Tears Renewed 15ml Bottle) 2 drop EA EYE PRN PRN PRN Reason: Dry Eyes Bisacodyl (Dulcolax) 10 mg PO DAILYPRN PRN PRN Reason: Constipation Bisacodyl (Dulcolax) 10 mg [place] DAILYPRN PRN PRN Reason: Constipation Calcium Carbonate (Tums) 1,000 mg PO Q4H PRN PRN Reason: Heartburn or Indigestion Clonidine (Catapres) 0.1 mg PO Q4H PRN PRN Reason: SBP Greater Than 170 Digoxin (Lanoxin) 0.125 mg PO MoWeFr@0900 [facility] Last Admin: 09/04/18 09:41 Dose: 0.125 mg Diltiazem HCl (Cardizem Cd) 120 mg PO DAILY [facility] Last Admin: 09/04/18 08:45 Dose: 120 mg Doxycycline Hyclate (Vibramycin) 100 mg PO BID [facility] Last Admin: 09/04/18 21:41 Dose: 100 mg Famotidine (Pepcid) 20 mg PO BID [facility] Last Admin: 09/04/18 21:41 Dose: 20 mg Guaifenesin (Mucinex) 600 mg PO Q12HR [facility] Last Admin: 09/04/18 21:41 Dose: 600 mg Guaifenesin (Robitussin Sf) 200 mg PO Q4H PRN PRN Reason: Cough Hydralazine HCl (Apresoline) 10 mg SLOW IVP Q4H PRN PRN Reason: SBP Greater Than 170 Cefepime HCl 2 gm/ Sodium (Chloride) 100 mls @ 200 mls/hr IVPB 0300,1500 [facility] Last Admin: 09/05/18 02:59 Dose: 100 mls Loperamide HCl (Imodium) 2 mg PO PRN PRN PRN Reason: Diarrhea/Loose Stools Loratadine (Claritin) 10 mg PO DAILYPRN PRN PRN Reason: Sinus Symptoms Methylprednisolone Sodium Succinate (Solu-Medrol) 20 mg IVP Q8HR [facility] Mineral Oil/White Petrolatum (Eucerin Cream) 0 gm TOP BIDPRN PRN PRN Reason: Dry Skin Miscellaneous Medication (Pharmacy To Dose) 1 each PO .WARFARIN [facility] Mometasone Furoate/Formoterol Fumar (Dulera 200 Mcg/5 Mcg Inhaler) 2 puff INH BID-RT [facility] Last Admin: 09/05/18 06:06 Dose: 2 puff Ondansetron HCl (Zofran Odt) 4 mg PO Q6H PRN PRN Reason: Nausea/Vomiting Ondansetron HCl (Zofran) 4 mg IVP Q6H PRN PRN Reason: Nausea/Vomiting Buprenorphine Hcl/Naloxone Hcl [ Zubsolv] 1 Tab 0 each PO BID [facility] Potassium Chloride (Klor-Con 10) 10 meq PO QAM-WM [facility] Last Admin: 09/04/18 08:44 Dose: 10 meq Saccharomyces Boulardii (Florastor) 250 mg PO DAILY [facility] Last Admin: 09/04/18 08:44 Dose: 250 mg Senna/Docusate Sodium (Senokot S) 2 tab PO BID PRN PRN Reason: Constipation Last Admin: 09/04/18 09:45 Dose: 2 tab Sodium Chloride ([place] Nasal [place] 0.65%) 0 ml EA NARE QIDPRN PRN PRN Reason: Nasal Congestion Sodium Chloride (Flush - Normal Saline) 10 ml IVF Q12HR [facility] Last Admin: 09/04/18 21:42 Dose: 10 ml Sodium Chloride (Flush - Normal Saline) 10 ml IVF PRN PRN PRN Reason: Saline Flush Tamsulosin HCl (Flomax) 0.4 mg PO QAM [facility] Last Admin: 09/04/18 09:41 Dose: 0.4 mg Throat Lozenges (Cepastat Lozenges) 1 bucky PO Q2H PRN PRN Reason: Sore Throat Torsemide (Demadex) 20 mg PO DAILY [facility] Last Admin: 09/04/18 08:46 Dose: 20 mg Warfarin Sodium (Coumadin) 2 mg PO 1700 [facility]
[2018-09-05] MEDS: Potassium Chloride 10 MEQ TAB PO SCH (08:55)
[2018-09-05] MEDS: guaiFENesin ER 600 MG TAB PO SCH ×2 (09:55→20:09)
[2018-09-05] MEDS: Famotidine 20 MG TAB PO SCH ×2 (09:56→20:08)
[2018-09-05] MEDS: Tamsulosin HCl 0.4 MG CAP PO SCH (09:56)
[2018-09-05] MEDS: Saccharomyces boulardii 250 MG CAP PO SCH (09:56)
[2018-09-05] MEDS: Torsemide 20 MG TAB PO SCH (09:57)
[2018-09-05] MEDS: Doxycycline 100 MG CAP PO SCH ×2 (09:57→20:09)
--- NOTE | 2018-09-05 11:29 | PRG ---
DATE OF SERVICE: 09/05/2018 He is doing well, appears stable. PHYSICAL EXAMINATION: VITAL SIGNS: Temperature is 97.4, pulse 92, respiration 16, O2 sat 93% on 3 liters. HEENT: Unremarkable. NECK: No JVD. CHEST: Clear without wheezing or rhonchi. CARDIAC: S1 and S2 regular. ABDOMEN: Soft. EXTREMITIES: No edema. LABORATORY DATA: White blood cell count 7.6, hematocrit 41.4, platelet count 192. Sodium 132, potas sium 4.7, BUN 48, creatinine 1.4, glucose 184. ASSESSMENT: 1. Chronic obstructive pulmonary disease with exacerbation. 2. Right lower lobe pneumonia. 3. Chronic hypoxic respiratory failure. PLAN: He appears suitable for discharge at any time. He will be followed up in the office in about a month.
[2018-09-05] MEDS ORDERED: Warfarin Sodium 2 MG TAB PO SCH (20:30)
[2018-09-06] MEDS: Cefepime 2 GM in Sodium Chloride 0.9% 100 ML IVPB SCH (02:50)
[2018-09-06 03:17] LABS: Hemoglobin 13.4 g/dL (14.0-18.0); Platelet Count 201 thou/uL (130-400)
[2018-09-06 03:28] LABS: INR-International Normal Ratio 2.3; Prothrombin Time 25.2 SEC (12.0-14.7)
[2018-09-06] MEDS: Mometasone/Formoterol 120 PUFF INHALER INH SCH (06:14)
[2018-09-06] MEDS ORDERED: diphenhydrAMINE 25 MG CAP PO PRN (06:41)
[2018-09-06 07:52] VITALS: BP 150/69; TEMP 97.5
[2018-09-06] MEDS: Potassium Chloride 10 MEQ TAB PO SCH (08:18)
[2018-09-06] MEDS: Digoxin 0.125 MG TAB PO SCH (08:18)
[2018-09-06] MEDS: Doxycycline 100 MG CAP PO SCH (08:18)
[2018-09-06] MEDS: Famotidine 20 MG TAB PO SCH (08:18)
[2018-09-06] MEDS: Tamsulosin HCl 0.4 MG CAP PO SCH (08:19)
[2018-09-06] MEDS: guaiFENesin ER 600 MG TAB PO SCH (08:19)
[2018-09-06] MEDS: Saccharomyces boulardii 250 MG CAP PO SCH (08:19)
--- NOTE | 2018-09-06 08:48 | PRG ---
DATE OF SERVICE: 09/06/2018 The patient is doing well, had no acute complaints. He wants to go home. PHYSICAL EXAMINATION: VITAL SIGNS: Temperature 97.5, pulse 93, O2 sat 95%, respiratory rate 16, blood pressure 150/69. HEENT: Unremarkable. NECK: No JVD. CHEST: Clear. CARDIAC: S1 and S2 regular. ABDOMEN: Soft. EXTREMITIES: No edema. ASSESSMENT: 1. Chronic obstructive pulmonary disease with exacerbation. 2. Pneumonia. PLAN: The patient is stable for hospital discharge. He can follow up with me in about a month. He should be sent home on a steroid taper and finish out a course of antibiotics.
--- NOTE | 2018-09-06 09:18 | PDOC.PN ---
- Subjective Encounter Start Date: 09/06/18 Encounter Start Time: 06:00 -: old records requested/rev Patient seen and examined. No new complaints. No overnight events - Objective Resuscitation Status: Resuscitation Status FULL:Full Resuscitation MAR Reviewed: Yes Vital Signs & Weight: Vital Signs (12 hours) Temp Pulse Resp BP Pulse Ox 09/06/18 08:18 93 09/06/18 07:51 97.5 F L 93 16 150/69 H 95 09/06/18 06:17 96 09/06/18 06:16 93 18 96 09/06/18 06:14 93 18 95 09/06/18 02:27 91 18 98 09/05/18 22:32 87 16 99 Weight Weight 463 lb 3.059 oz I&O: 09/05/18 09/06/18 09/07/18 06:59 06:59 06:59 Intake Total 1670 1206 Output Total 600 Balance 1070 1206 Result Diagrams: 09/06/18 03:06 09/05/18 05:33 Phys Exam - Physical Examination Constitutional: NAD HEENT: PERRLA, moist MMs, sclera anicteric Neck: no JVD, supple Respiratory: no wheezing, no rales, no rhonchi Cardiovascular: RRR, no significant murmur, no rub Gastrointestinal: soft, non-tender, no distention, positive bowel sounds Musculoskeletal: no edema, pulses present Neurological: non-focal, normal sensation, moves all 4 limbs Psychiatric: normal affect, A&O x 3 Skin: no rash, normal turgor Dx/Plan (1) Acute on chronic respiratory failure with hypoxia and hypercapnia Code(s): J96.21 - ACUTE AND CHRONIC RESPIRATORY FAILURE WITH HYPOXIA; J96.22 - ACUTE AND CHRONIC RESPIRATORY FAILURE WITH HYPERCAPNIA Status: Acute (2) Atrial fibrillation with RVR Code(s): I48.91 - UNSPECIFIED ATRIAL FIBRILLATION Status: Acute Comment: now rate controlled (3) COPD exacerbation Code(s): J44.1 - CHRONIC OBSTRUCTIVE PULMONARY DISEASE W (ACUTE) EXACERBATION Status: Acute (4) Community acquired bacterial pneumonia Code(s): J15.9 - UNSPECIFIED BACTERIAL PNEUMONIA Status: Acute (5) Elevated brain natriuretic peptide (BNP) level Code(s): R79.89 - OTHER SPECIFIED ABNORMAL FINDINGS OF BLOOD CHEMISTRY Status : Acute (6) BPH (benign prostatic hyperplasia) Code(s): N40.0 - BENIGN PROSTATIC HYPERPLASIA WITHOUT LOWER URINRY TRACT SYMP Status: Chronic (7) Chronic anticoagulation Code(s): Z79.01 - LEGISLATIVE AIDE (CURRENT) USE OF ANTICOAGULANTS Status: Chronic (8) Chronic arthritis Code(s): M19.90 - UNSPECIFIED OSTEOARTHRITIS, UNSPECIFIED SITE Status: Chronic (9) Hypertension Code(s): I10 - ESSENTIAL (PRIMARY) HYPERTENSION Status: Chronic - Plan cont current plan of care, continue antibiotics, respiratory therapy * medication reviewed as below * symptomatic treatment * stable for discharge * see my discharge summery later * medication reconciled and prescription sent to pharmacy. Review of Systems - Review of Systems ENT: negative: Ear Pain, Ear Discharge, Nose Pain, Nose Discharge, Nose Congestion, Mouth Pain, Mouth Swelling, Throat Pain, Throat Swelling, Other Respiratory: negative: Cough, Dry, Shortness of Breath, Hemoptysis, SOB with Excertion, Pleuritic Pain, Sputum, Wheezing Cardiovascular: negative: chest pain, palpitations, orthopnea, paroxysmal nocturnal dyspnea, edema, light headedness, other Gastrointestinal: negative: Nausea, Vomiting, Abdominal Pain, Diarrhea, Constipation, Melena, Hematochezia, Other Genitourinary: negative: Dysuria, Frequency, Incontinence, Hematuria, Retention , Other Musculoskeletal: negative: Neck Pain, Shoulder Pain, Arm Pain, Back Pain, Hand Pain, Leg Pain, Foot Pain, Other Skin: negative: Rash, Lesions, Bill, Bruising, Other - Medications/Allergies Allergies/Adverse Reactions: Allergies Allergy/AdvReac Type Severity Reaction Status Date / Time No Known Drug Allergies Allergy Verified 07/30/14 22:17 Medications: Current Medications Acetaminophen (Tylenol) 650 mg PO Q4H PRN PRN Reason: Headache/Fever/Mild Pain (1-3) Hydrocodone Bitart/Acetaminophen ([place] 5/325) 1 tab PO Q4H PRN PRN Reason: Moderate Pain (4-6) Albuterol/Ipratropium (Duoneb) 3 ml NEB [id number] [facility] Last Admin: 09/06/18 06:16 Dose: 3 ml Artificial Tears (Tears Renewed 15ml Bottle) 2 drop EA EYE PRN PRN PRN Reason: Dry Eyes Bisacodyl (Dulcolax) 10 mg PO DAILYPRN PRN PRN Reason: Constipation Bisacodyl (Dulcolax) 10 mg [place] DAILYPRN PRN PRN Reason: Constipation Calcium Carbonate (Tums) 1,000 mg PO Q4H PRN PRN Reason: Heartburn or Indigestion Clonidine (Catapres) 0.1 mg PO Q4H PRN PRN Reason: SBP Greater Than 170 Digoxin (Lanoxin) 0.125 mg PO MoWeFr@0900 [facility] Last Admin: 09/06/18 08:18 Dose: 0.125 mg Diltiazem HCl (Cardizem Cd) 120 mg PO DAILY [facility] Last Admin: 09/06/18 08:18 Dose: 120 mg Diphenhydramine HCl (Benadryl) 25 mg PO Q6H PRN PRN Reason: Itching & Insomnia Doxycycline Hyclate (Vibramycin) 100 mg PO BID [facility] Last Admin: 09/06/18 08:18 Dose: 100 mg Famotidine (Pepcid) 20 mg PO BID [facility] Last Admin: 09/06/18 08:18 Dose: 20 mg Guaifenesin (Mucinex) 600 mg PO Q12HR [facility] Last Admin: 09/06/18 08:19 Dose: 600 mg Guaifenesin (Robitussin Sf) 200 mg PO Q4H PRN PRN Reason: Cough Hydralazine HCl (Apresoline) 10 mg SLOW IVP Q4H PRN PRN Reason: SBP Greater Than 170 Cefepime HCl 2 gm/ Sodium (Chloride) 100 mls @ 200 mls/hr IVPB 0300,1500 [facility] Last Admin: 09/06/18 02:50 Dose: 100 mls Loperamide HCl (Imodium) 2 mg PO PRN PRN PRN Reason: Diarrhea/Loose Stools Loratadine (Claritin) 10 mg PO DAILYPRN PRN PRN Reason: Sinus Symptoms Methylprednisolone Sodium Succinate (Solu-Medrol) 20 mg IVP Q8HR [facility] Last Admin: 09/06/18 05:16 Dose: 20 mg Mineral Oil/White Petrolatum (Eucerin Cream) 0 gm TOP BIDPRN PRN PRN Reason: Dry Skin Miscellaneous Medication (Pharmacy To Dose) 1 each PO .WARFARIN [facility] Mometasone Furoate/Formoterol Fumar (Dulera 200 Mcg/5 Mcg Inhaler) 2 puff INH BID-RT [facility] Last Admin: 09/06/18 06:14 Dose: 2 puff Ondansetron HCl (Zofran Odt) 4 mg PO Q6H PRN PRN Reason: Nausea/Vomiting Ondansetron HCl (Zofran) 4 mg IVP Q6H PRN PRN Reason: Nausea/Vomiting Buprenorphine Hcl/Naloxone Hcl [ Zubsolv] 1 Tab 0 each PO BID [facility] Potassium Chloride (Klor-Con 10) 10 meq PO QAM-[facility] Last Admin: 09/06/18 08:18 Dose: 10 meq Saccharomyces Boulardii (Florastor) 250 mg PO DAILY [facility] Last Admin: 09/06/18 08:19 Dose: 250 mg Senna/Docusate Sodium (Senokot S) 2 tab PO BID PRN PRN Reason: Constipation Last Admin: 09/04/18 09:45 Dose: 2 tab Sodium Chloride ([place] Nasal [place] 0.65%) 0 ml EA NARE QIDPRN PRN PRN Reason: Nasal Congestion Sodium Chloride (Flush - Normal Saline) 10 ml IVF Q12HR [facility] Last Admin: 09/06/18 08:19 Dose: 10 ml Sodium Chloride (Flush - Normal Saline) 10 ml IVF PRN PRN PRN Reason: Saline Flush Last Admin: 09/06/18 05:16 Dose: 10 ml Tamsulosin HCl (Flomax) 0.4 mg PO QAM [facility] Last Admin: 09/06/18 08:19 Dose: 0.4 mg Throat Lozenges (Cepastat Lozenges) 1 bucky PO Q2H PRN PRN Reason: Sore Throat Torsemide (Demadex) 20 mg PO DAILY [facility] Last Admin: 09/05/18 09:57 Dose: 20 mg Warfarin Sodium (Coumadin) 2 mg PO 1700 [facility]
[2018-09-06] MEDS: Torsemide 20 MG TAB PO SCH (09:59)
--- NOTE | 2018-09-06 10:27 | DIS ---
DATE OF ADMISSION: 09/02/2018 DATE OF DISCHARGE: 09/06/2018 PRIMARY CARE PHYSICIAN: Cristine Brewer M.D. DISCHARGE DISPOSITION: Home. PRIMARY DISCHARGE DIAGNOSES: Acute on chronic respiratory failure with hypoxia and hypercapnia; atri al fibrillation with rapid ventricular response converted to sinus rhythm; community-acquired bacteri al pneumonia, likely streptococcal; chronic obstructive pulmonary disease exacerbation. SECONDARY DISCHARGE DIAGNOSES: Osteoarthritis, hypertension, chronic respiratory failure with hypoxi a and hypercapnia, chronic obstructive pulmonary disease, atrial fibrillation, chronic anticoagulatio n, benign enlargement of prostate, severe tricuspid regurgitation. PRIMARY PROCEDURE/OPERATION: None. RADIOLOGICAL INVESTIGATION: Chest x-ray showed right lower lobe infiltration. Echocardiography show ed diastolic dysfunction and severe tricuspid regurgitation. SIGNIFICANT LABORATORY DATA: WBC 7.6, hemoglobin 13.4, platelet 201. INR 2.3, pCO2 of 73.3, bicarbo berna 38.7, pH 7.34, O2 62.7. Sodium 133, creatinine 1.38, calcium 8.6. Liver enzymes normal. BNP 3 63.5. Urinalysis: Leukocyte moderate. Blood culture negative. Urine culture negative. Influenza screen negative. DISCHARGE MEDICATIONS: Buprenorphine with naloxone one tablet b.i.d.; digoxin 125 mcg p.o. Tuesday, W , Tuesday; Cardizem-CD 120 mg daily; DuoNeb q.6 hourly; potassium chloride 10 mEq p.o. daily; Flomax 0.4 mg p.o. daily; torsemide 20 mg daily; warfarin 2 mg daily; Ventolin HFA 2 puffs q.6 hourly p.r.n.; Omnicef 300 mg p.o. b.i.d. for 7 days; doxycycline 100 mg p.o. b.i.d. for 7 days; Mucinex 60 0 mg p.o. b.i.d.; Dulera two puff inhalation b.i.d.; Florastor 250 mg p.o. daily for 7 days; predniso ne 40 mg p.o. daily for 5 days, then 20 mg p.o. daily for 5 days, then 10 mg p.o. daily for 5 days, t hen stop. CONTRAINDICATIONS: None. CODE STATUS: FULL CODE. INPATIENT CONSULTANTS: Dr. Bai, spool worker was following while in hospital. TEST RESULTS PENDING ON DISCHARGE: None. ALLERGIES: No known drug allergy. DISCHARGE PLAN: Post hospital, the patient is instructed to follow up with Dr. Bai in 1 month. The patient will follow up with primary care physician in 1 week. HOSPITAL COURSE: An 82-year-old male who has above-mentioned medical problem who was admitted for in creasing shortness of breath, cough, and subjective fever. On admission, he was diagnosed with a [employer] D exacerbation. He was having atrial fibrillation with rapid ventricular response. He was having [place] on chronic respiratory failure with hypoxia and hypercapnia. ABG done which showed a chronic res piratory acidosis with metabolic compensation. He was requiring BiPAP and that is why he was admitte d to [facility]. Pulmonary group was consulted. Patient was optimally treated for COPD with Solu-Medrol, empiric antibiotic therapy, DuoNeb, Dulera, Mucinex and Solu-Medrol. Next day, the patient's conditi on was improved. Patient was no longer requiring BiPAP and at that point, we transferred him to [facility]. He also had atrial fibrillation on admission that was controlled with his home medication he was on chronic anticoagulation and his INR was therapeutic. While in hospital, initially he was given cefepime, Levaquin, vancomycin and subsequently we changed antibiotic therapy to cefepime, doxy cycline and on discharge we changed to Omnicef and doxycycline. Tapering doses of prednisone is pres cribed, Dulera was added. Rest of medication was continued as per previous. This patient has all necessary equipments at home and that he wants to go home today. He is stable. He is able to ambulate by himself. He is tolerating p.o. well and ambulatory. The patient is seen and examined at bedside today. Please see my progress note from today for furthe r detail. While in hospital for his elevated BNP, we did echocardiography, which showed severe tricu spid regurgitation. His culture remained negative. Total time spent on discharge day 31 minutes.
[2018-09-06] MEDS ORDERED: Warfarin Sodium 2 MG TAB PO SCH (17:00)
--- NOTE | 2018-09-09 23:07 | EKG ---
Test Reason : SEPSIS ALERT Blood Pressure : / mmHG Vent. Rate : 134 BPM Atrial Rate : 125 BPM P-R Int : 000 ms QRS Dur : 088 ms QT Int : 308 ms P-R-T Axes : 000 111 055 degrees QTc Int : 459 ms Atrial fibrillation with rapid ventricular response with premature ventricular or aberrantly conducte d complexes Right axis deviation Pulmonary disease pattern Inferior infarct , age undetermined Abnormal ECG Confirmed by BEATA KOVACS ([id number]), order editor CHUNG FARIAS ([id number]) on 09/09/2018 11:06:49 PM Referred By: Confirmed By:BEATA KOVACS
== END 2018-09-06 16:02 | disposition home or self-care (01) | DRG 193 ==
LOC: ERS 09:56 → IMCU/EMU 14:11 → ONC 09-03 15:30
PROVIDERS: ADMIT Internal Medicine; ATTEND Internal Medicine
DX: J15.4 Pneumonia due to other streptococci (principal); J96.21 Acute and chronic respiratory failure with hypoxia; J96.22 Acute and chronic respiratory failure with hypercapnia; I50.32 Chronic diastolic (congestive) heart failure; G45.9 Transient cerebral ischemic attack, unspecified; J44.1 Chronic obstructive pulmonary disease with (acute) exacerbation; Z99.81 Dependence on supplemental oxygen; I11.0 Hypertensive heart disease with heart failure; M19.90 Unspecified osteoarthritis, unspecified site; N40.0 Benign prostatic hyperplasia without lower urinary tract symptoms; R79.89 Other specified abnormal findings of blood chemistry; I48.0 Paroxysmal atrial fibrillation; I07.1 Rheumatic tricuspid insufficiency; Z79.01 Long term (current) use of anticoagulants; Z87.891 Personal history of nicotine dependence; Z96.641 Presence of right artificial hip joint
CPT/HCPCS: 36415; 71045; 80048; 80053; 80202; 81003; 81015; 82805; 83605; 83880; 85014; 85018; 85025; 85049; 85610; 85730; 87040; 87086; 87804; 90471; 90662; 93005; 93306; 94640; 94660; 94664; 96361; 96365; 96368; G0008; G8978-GP-CI; G8979-GP-CI; G8980-GP-CI; J0692; J1956; J2543; J2920; J3370; J7050; J7611; J7620

== ENCOUNTER 2018-12-12 11:23 | Outpatient (CLI) | payer MEDICARE, MEDICAID ==
--- NOTE | 2018-12-12 12:45 | RAD ---
LEFT SHOULDER 3 VIEWS: HISTORY: Left shoulder pain. FINDINGS: There is a history of a previous injury to shoulder. There is severe arthritic change of the glenohumeral joint space. There is deformity to the humeral head and glenoid. There is ossified body seen along the inferior margin of glenoid. Minimal changes of the AC joints are seen. IMPRESSION: Severe arthritic changes of the glenohumeral joint. POS: [facility]
== END 2018-12-12 11:24 | disposition home or self-care (01) ==
LOC: BICRAD 11:23
PROVIDERS: ATTEND Family Medicine
DX: M25.512 Pain in left shoulder (principal); M19.012 Primary osteoarthritis, left shoulder

== ENCOUNTER 2019-08-20 14:17 | Outpatient (CLI) | payer MEDICARE, MEDICAID ==
--- NOTE | 2019-08-20 17:51 | BD ---
Exam: DEXA Bone Density Indications: 83-year-old male for osteoporosis screening. Lumbar Spine: BMD (g/cm2) L1 1.078 T-Score: 0.0 L2 1.197 T-Score: 0.9 L3 1.211 T-Score: 1.0 L4 1.318 T-Score: 2.1 L1-L4 1.203 T-Score: 1.0 Femoral Neck: 0.752 T-Score: -1.3 Total Femur: 0.889 T-Score: -1.0 Impression: 1. Femoral neck density indicates osteopenia. 2. Lumbar spine density within normal range. 10-YEAR FRACTURE RISK: Major osteoporotic fracture: 7.1% Hip fracture: 2.6% POS: [facility]
--- NOTE | 2019-08-20 17:57 | RAD ---
PA AND LATERAL VIEWS CHEST: Date: 08/20/19 HISTORY: Chronic respiratory disease with hypoxia. FINDINGS: Comparison made with exam of 08/28/18. The heart size is borderline. Aorta is tortuous. Lungs are well expanded with stable chronic changes. No lobar consolidation, pneumothoraces, or pleural effusions seen. IMPRESSION: Stable exam. No acute process. POS: [facility]
== END 2019-08-20 14:18 | disposition home or self-care (01) ==
LOC: BICMAMMO 14:17
PROVIDERS: ATTEND Family Medicine
DX: M81.0 Age-related osteoporosis without current pathological fracture (principal); J96.11 Chronic respiratory failure with hypoxia; M85.859 Other specified disorders of bone density and structure, unspecified thigh
CPT/HCPCS: 71046; 77080

== ENCOUNTER 2019-09-29 14:58 | Inpatient (IN) | payer MEDICARE, MEDICAID ==
[2019-09-29] MEDS ORDERED: Magnesium 2 GM/50 ML BAG (IN WATER) ONE (15:15)
[2019-09-29] MEDS ORDERED: methylPREDNISolone Sod Succ/PF 125 MG/2 ML VIAL ONE (15:15)
[2019-09-29 15:43] LABS: Actual Bicarbonate (HCO3a) 34.2 mEq/L (22-28); Analyzer IN Cardio ER; Base Excess (BEa) 8.8 mEq/L (-2.0 to +3.0); Carboxyhemoglobin (COHb) 0.8 gm% (0.0-3.0); Hemoglobin (Hb) 11.1 g/dL (14.0-18.0); Potassium - ABG Lab 4.45 mmol/L (3.70-5.30); pH, Arterial 7.44 (7.35-7.45)
[2019-09-29 15:53] LABS: O2 Tension (PaO2) 47.5 mmHg (> 60.0)
[2019-09-29 15:54] LABS: Puncture Site RRA
[2019-09-29] MEDS ORDERED: Albuterol Sulfate 2.5 mg/3 ml Neb ONE (15:55)
[2019-09-29] MEDS ORDERED: Acetaminophen 500 MG TAB ONE (16:20)
--- NOTE | 2019-09-29 16:24 | RAD ---
XR Chest 1 View Portable History: Dyspnea Comparison: Radiograph August 20, 2019 Findings: Extensive opacification of the right upper lobe. There is also partial opacification right lower lobe. No pneumothorax. Elevation left hemidiaphragm. Impression: Multifocal pneumonia. Follow-up after treatment recommended.
[2019-09-29 16:44] LABS: ALT (SGPT) 23 U/L (8-55); AST (SGOT) 31 U/L (5-34); Albumin 3.5 g/dL (3.4-4.8); Alkaline Phosphatase 116 U/L (40-110); Anion Gap 15 mmol/L (10-20); BUN (Urea Nitrogen) 51 mg/dL (8.4-25.7); Bilirubin, Total 1.6 mg/dL (0.2-1.2); Calc. Creatinine Clearance 0 mL/min (70-130); Calcium 8.6 mg/dL (7.8-10.44); Carbon Dioxide 34 mmol/L (23-31); Chloride 91 mmol/L (98-107); Estimated GFR-MDRD 30; Globulin 2.9 g/dL (2.4-3.5); Glucose 108 mg/dL (83-110); Magnesium 2.2 mg/dL (1.6-2.6); Potassium 4.6 mmol/L (3.5-5.1); Protein, Total 6.4 g/dL (5.8-8.1); Sodium 135 mmol/L (136-145)
[2019-09-29] MEDS ORDERED: Rocuronium Bromide 10 MG/ML (10ML VIAL) ONE (16:58)
[2019-09-29] MEDS ORDERED: Rocuronium Bromide 50 MG/5 ML VIAL ONE (17:01)
[2019-09-29 17:09] LABS: Hemoglobin 10.3 g/dL (14.0-18.0); Mean Corpuscular HGB CONC 31.5 g/dL (32.0-36.0); Mean Corpuscular Hemoglobin 29.8 pg (27.0-31.0); Mean Corpuscular Volume 94.5 fL (78.0-98.0); Mean Platelet Volume 8.4 fL (7.4-10.4); Platelet Count 198 thou/uL (130-400); RBC Distribution Width 13.1 % (11.5-14.5); Red Blood Cell (RBC) Count 3.46 mill/uL (4.70-6.10); White Blood Cell (WBC) Count 20.8 thou/uL (4.8-10.8)
[2019-09-29 17:24] LABS: Digoxin Less than 0.15 ng/mL (0.8-2.0)
[2019-09-29 17:29] LABS: Band 50 % (5-11); Lymphocytes 1 % (21-51); MDiff Complete? YES; Monocytes 3 % (0-10); Neutrophil 45 % (42-75); Ovalocytes SLIGHT = 2-5 cells (100X) (0-1/hpf); Platelet Morphology Comment Appears Adequate; Polychromasia SLIGHT = 2-3 cells (100X) (0-2/hpf); Reactive Lymphocytes 1 % (0-10); Reflex for Review?? YES; Schistocytes SLIGHT = 2-5 cells (100X) (0-1/hpf); Target Cells SLIGHT = 2-5 cells (100X) (0-1/hpf); Tear Drops SLIGHT = 2-5 cells (100X) (0-1/hpf)
--- NOTE | 2019-09-29 17:42 | RAD ---
XR Chest 1 View Portable History: Intubation Comparison: Radiograph same day Findings: Patient intubated endotracheal tube tip above the larry 4 cm. Enteric tube tip at the arleen elizabeth body. Impression: 1. Satisfactory position of the endotracheal tube tip. 2. Enteric tube side port near the GE junction. Recommend advancing 2 to 3 cm.
[2019-09-29 17:59] LABS: Actual Bicarbonate (HCO3a) 33.5 mEq/L (22-28); Analyzer IN Cardio ER; Base Excess (BEa) 6.5 mEq/L (-2.0 to +3.0); Calcium, Ionized 1.07 mmol/L (1.12-1.30); Carboxyhemoglobin (COHb) 0.5 gm% (0.0-3.0); Hemoglobin (Hb) 10.6 g/dL (14.0-18.0); Potassium - ABG Lab 3.89 mmol/L (3.70-5.30); pH, Arterial 7.35 (7.35-7.45)
[2019-09-29 18:00] LABS: CO2 Tension 61.6 mmHg (35.0-45.0)
[2019-09-29 18:01] LABS: O2 Tension (PaO2) 57.8 mmHg (> 60.0); Puncture Site RBA
[2019-09-29 18:06] LABS: CKMB 3.3 ng/mL (0-6.6)
[2019-09-29] MEDS ORDERED: Senokot S 8.6-50 MG TAB PO PRN (18:08)
[2019-09-29] MEDS ORDERED: Acetaminophen 325 MG TAB PO PRN (18:08)
[2019-09-29] MEDS ORDERED: Norepinephrine 8 MG/0.9% NS 250 ML IVPB PRN (18:11)
[2019-09-29] MEDS ORDERED: Diltiazem 125 MG/25 ML ONE (18:14)
[2019-09-29] MEDS ORDERED: Norepinephrine 8 MG/0.9% NS 0 ML ONE (18:14)
[2019-09-29] MEDS ORDERED: Cefepime 2 GM VIAL ONE (18:19)
[2019-09-29] MEDS ORDERED: Digoxin 0.5 MG/2 ML AMP ONE (18:24)
[2019-09-29] MEDS ORDERED: Diltiazem HCl 125 MG, Admixture Fee 1 EACH in Sodium Chloride 0.9% 100 ML IVPB SCH (18:30)
[2019-09-29 19:28] LABS: Prothrombin Time 44.3 SEC (12.0-14.7)
[2019-09-29 19:32] LABS: INR-International Normal Ratio 4.8
--- NOTE | 2019-09-29 19:50 | RAD ---
XR Chest 1 View Portable History: IJ placement. Comparison: Radiograph same day Findings: No central venous catheter is appreciated. No pneumothorax. Impression: No pneumothorax after attempted central line placement.
[2019-09-29] MEDS ORDERED: Furosemide 40 MG/4 ML VIAL ONE (19:58)
[2019-09-29 20:09] LABS: Lactic Acid 2.6 mmol/L (0.5-2.2)
[2019-09-29] MEDS: Ipratropium Bromide 2.5 ml Neb NEB SCH ×2 (20:58→22:07)
[2019-09-29] MEDS ORDERED: Famotidine/PF 20 mg/2ml Vial SLOW IVP SCH (21:00)
[2019-09-29] MEDS: Sodium Chloride 0.9% 1,000 ML IV SCH (21:05)
[2019-09-29] MEDS ORDERED: Sodium Chloride 0.9% (PF) 10 ML VIAL FS PRN (21:26)
[2019-09-29] MEDS ORDERED: Lorazepam 2 MG/ML VIAL SLOW IVP PRN (21:28)
[2019-09-29] MEDS ORDERED: DISCONTINUE PREVIOUS NARCOTIC PAIN MEDICATIONS AND BENZODIAZEPINES FS SCH (21:28)
[2019-09-29] MEDS ORDERED: Morphine 2 MG/ML SYRINGE SLOW IVP PRN (21:28)
[2019-09-29] MEDS ORDERED: Fentanyl BOLUS 250 ML IVPB PRN (21:28)
[2019-09-29] MEDS ORDERED: Propofol BOLUS 1,000 MG/100 ML VIAL IV PRN (21:28)
[2019-09-29] MEDS: Pantoprazole 40 MG VIAL IVP SCH (21:42)
[2019-09-29] MEDS: Propofol 1,000 MG/100 ML VIAL IV PRN (21:42)
[2019-09-29] MEDS: Heparin 5,000 UNITS/ML VIAL SC SCH (21:50)
[2019-09-29] MEDS: Tamsulosin HCl 0.4 MG CAP PO SCH (21:50)
[2019-09-29 22:25] LABS: CKMB 2.1 ng/mL (0-6.6)
[2019-09-29] MEDS: methylPREDNISolone Sod Succ 40 MG VIAL IVP SCH (23:33)
[2019-09-29] MEDS: Piperacillin/Tazobactam 4.5 GM in Sodium Chloride 0.9% 100 ML IVPB SCH (23:33)
--- NOTE | 2019-09-30 00:33 | HP ---
CHIEF COMPLAINT: Short of breath. HISTORY OF PRESENT ILLNESS: The patient is an 83-year-old male who initially presented to the hospital with shortness of breath. He was found to be hypoxic at 76%. He was on a non-rebreather by EMS. The patient has been short of breath for the past couple of days according to the nursing notes. The patient then was put on BiPAP. He initially did well; however, given his chest x-ray findings of significant left lung infiltrate, he was then intubated. The patient then was found to be in AFib with rapid ventricular response. At this time, he was given Cardizem and he was also loaded with digoxin. He also was given a total of 1.5 L of normal saline. PAST MEDICAL HISTORY: 1. This patient has a history of COPD and atrial fibrillation. He is on chronic anticoagulation, but he is not therapeutic. 2. He has a history of benign prostate hyperplasia. 3. He has severe tricuspid regurgitation and also he has hypertension and osteoarthritis. PAST SURGICAL HISTORY: Right hip replacement and hernia repair. ALLERGIES: NO KNOWN DRUG ALLERGIES. MEDICATIONS: The patient is on; 1. Torsemide 20 mg daily. 2. Tamsulosin 0.4 mg daily. 3. Cartia XT 180 mg once a day. 4. Alprazolam 1 daily. 5. Aspirin 81 mg daily. 6. Warfarin 2 mg p.o. daily. REVIEW OF SYSTEMS: Unable to obtain. PHYSICAL EXAMINATION: VITAL SIGNS: Temperature of 100.2. He is 93% on 60% FiO2 and 5% of PEEP. His blood pressure is 108/64, his heart rate was 118, respirations were 18. HEENT: Normocephalic, atraumatic. No lymphadenopathy noted. Pupils equal and reactive to light. CARDIOVASCULAR: Atrial fibrillation, rate controlled. LUNGS: He has decreased breath sounds to his right lung area compared to the left. ABDOMEN: Soft. Bowel sounds are present x2. No pain upon palpation. EXTREMITIES: He does have significant dry skin and chronic venous stasis. Pedal pulses are present x2. Neurovascular belcher unable to obtain since the patient is currently intubated. SKIN: As I mentioned, he has some dry skin to his bilateral lower legs. LABORATORY RESULTS: His WBCs of 20.8, hemoglobin of 10.3, hematocrit of 32.7, his platelets of 198. His chemistry; sodium of 135, potassium of 4.6, BUN of 51, creatinine of 2.10. His baseline is 1.32. His lactic acid is 2.7. His BNP is 2256. His troponin is 0.087. Upon my interpretation, his chest x-ray shows significant opacity to his right lung, appears to be consolidation. The read was multifocal pneumonia. FAMILY HISTORY: Unable to obtain per records. No strong history of premature coronary artery disease. SOCIAL HISTORY: Again from the records. The patient is a former smoker, he quit about few years ago. He drinks alcohol almost everyday basis, I am not sure if he continues to drink. 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 ASSESSMENT AND PLAN: The patient is an 83-year-old male who presents to the hospital with complaints of shortness of breath. 1. Acute hypoxic respiratory failure. Currently, the patient is intubated. He has multifocal pneumonia. We will start the patient on DuoNeb. We will start him on some steroids. We will also start him on some broad-spectrum antibiotics with Zosyn which will cover Pseudomonas and also vancomycin. His flu was checked and it was negative. Pulmonology has been consulted. 2. Acute kidney injury. The patient was given 1.5 L of normal saline. We will continue to monitor the patient's urine output. 3. Atrial fibrillation with rapid ventricular response. The patient will be started on Cardizem. He has severe tricuspid regurgitation. We will also continue his anticoagulation. His last echocardiogram was in 2018, we will repeat another echocardiogram. 4. Pneumonia. We will continue his antibiotics. 5. Sepsis, most likely from pneumonia, severe sepsis; however, the patient currently has not required pressors. We will continue to monitor. 6. Deep venous thrombosis prophylaxis. We will put the patient on heparin subcu. Job ID: [id number]
[2019-09-30 02:15] LABS: CKMB 2.2 ng/mL (0-6.6)
[2019-09-30] MEDS: Ipratropium Bromide 2.5 ml Neb NEB SCH ×6 (02:18→22:06)
[2019-09-30 04:58] LABS: Anion Gap 13 mmol/L (10-20); BUN (Urea Nitrogen) 56 mg/dL (8.4-25.7); Calc. Creatinine Clearance 31 mL/min (70-130); Calcium 8.4 mg/dL (7.8-10.44); Carbon Dioxide 34 mmol/L (23-31); Chloride 93 mmol/L (98-107); Estimated GFR-MDRD 27; Glucose 154 mg/dL (83-110); Potassium 4.4 mmol/L (3.5-5.1); Sodium 136 mmol/L (136-145)
[2019-09-30] MEDS: Piperacillin/Tazobactam 4.5 GM in Sodium Chloride 0.9% 100 ML IVPB SCH ×3 (05:32→18:14)
[2019-09-30] MEDS: methylPREDNISolone Sod Succ 40 MG VIAL IVP SCH ×3 (05:32→17:54)
[2019-09-30] MEDS: Propofol 1,000 MG/100 ML VIAL IV PRN (05:36)
[2019-09-30 05:49] LABS: Band 32 % (5-11); Hemoglobin 9.3 g/dL (14.0-18.0); Lymphocytes 3 % (21-51); MDiff Complete? YES; Mean Corpuscular HGB CONC 31.3 g/dL (32.0-36.0); Mean Corpuscular Hemoglobin 29.4 pg (27.0-31.0); Mean Corpuscular Volume 94.1 fL (78.0-98.0); Mean Platelet Volume 8.6 fL (7.4-10.4); Metamyelocyte 3 % (0-0); Monocytes 3 % (0-10); Neutrophil 59 % (42-75); Ovalocytes SLIGHT = 2-5 cells (100X) (0-1/hpf); Platelet Count 205 thou/uL (130-400); Platelet Morphology Comment Appears Adequate; Polychromasia SLIGHT = 2-3 cells (100X) (0-2/hpf); Red Blood Cell (RBC) Count 3.17 mill/uL (4.70-6.10); Schistocytes SLIGHT = 2-5 cells (100X) (0-1/hpf)
[2019-09-30 07:01] LABS: Actual Bicarbonate (HCO3a) 34.5 mEq/L (22-28); Base Excess (BEa) 8.8 mEq/L (-2.0 to +3.0); CO2 Tension 52.7 mmHg (35.0-45.0); Calcium, Ionized 1.07 mmol/L (1.12-1.30); Carboxyhemoglobin (COHb) 0.8 gm% (0.0-3.0); Hemoglobin (Hb) 11.8 g/dL (14.0-18.0); Potassium - ABG Lab 4.19 mmol/L (3.70-5.30); pH, Arterial 7.43 (7.35-7.45)
[2019-09-30 07:45] LABS: O2 Tension (PaO2) 59.3 mmHg (> 60.0); Puncture Site RRAD
[2019-09-30 07:46] LABS: ALV-art Gradient 231.325 (0-20)
[2019-09-30] MEDS: Saccharomyces boulardii 250 MG CAP PO SCH (08:54)
[2019-09-30] MEDS ORDERED: Prevnar 13-Val Conj/PF 0.5 ML SYRINGE IM ONE (09:00)
[2019-09-30] MEDS ORDERED: FLU VACC TS2019-20(65YR UP)/PF 180 MCG/0.5 ML SYRINGE IM ONE (09:00)
[2019-09-30] MEDS ORDERED: Warfarin Sodium 2 MG TAB PO SCH (09:00)
[2019-09-30] MEDS: Pantoprazole 40 MG VIAL IVP SCH ×2 (09:41→22:07)
[2019-09-30] MEDS ORDERED: Fentanyl 100 MCG/2 ML VIAL SLOW IVP PRN (10:34)
[2019-09-30] MEDS ORDERED: Diltiazem HCl SR 60 mg Capsule PO SCH ×2 (10:45→21:00)
[2019-09-30] MEDS ORDERED: Sodium Chloride 0.9% 1,000 ML IV SCH (11:15)
[2019-09-30] MEDS: fentaNYL Citrate/PF 2,000 MCG in Sodium Chloride 0.9% 60 ML IV SCH (12:39)
[2019-09-30] MEDS: Bacteriostatic Water 30 ML VIAL FS PRN ×2 (13:04→17:54)
--- NOTE | 2019-09-30 13:17 | PDOC.HOSPP ---
- Subjective Encounter Date: 09/30/19 Encounter Time: 10:00 Subjective: pt intubated - Objective Vital Signs & Weight: Vital Signs (12 hours) Temp Pulse Resp BP Pulse Ox 09/30/19 12:00 98.8 F 09/30/19 10:45 84 21 H 100 09/30/19 10:00 20 09/30/19 08:00 97.8 F 09/30/19 07:43 74 09/30/19 07:41 75 16 94 L 09/30/19 06:00 17 09/30/19 04:00 98.9 F 16 09/30/19 02:19 83 96/61 09/30/19 02:18 79 15 95 09/30/19 02:00 16 Weight Weight 196 lb 11.2 oz Most Recent Monitor Data Heart Rate from ECG 79 NIBP 111/61 NIBP BP-Mean 77 Respiration from ECG 21 SpO2 97 I&O: 09/29/19 09/30/19 10/01/19 06:59 06:59 06:59 Intake Total 606.3 0 Output Total 920 330 Balance -313.7 -330 Result Diagrams: 09/30/19 04:15 09/30/19 04:15 Hospitalist ROS - Review of Systems Other: pt intubated - Medication Medications: Active Medications Generic Name Dose Route Start Last Admin Trade Name Freq PRN Reason Stop Dose Admin Fentanyl Citrate 2,000 mcg/ 100 mls @ 0 mls/hr 09/29/19 17:20 09/30/19 12:39 Sodium Chloride IV 10/29/19 17:20 100 mls INF JONATHAN Administration Protocol Per Protocol Piperacillin Sod/Tazobactam 100 mls @ 200 mls/hr 09/29/19 23:59 09/30/19 12: 30 Sod 4.5 gm/ Sodium Chloride IVPB 100 mls Q6HR JONATHAN Administration Sodium Chloride 1,000 mls @ 30 mls/hr 09/29/19 20:30 09/29/19 21:05 Normal Saline 0.9% IV 1,000 mls .Q24H JONATHAN Administration Ipratropium Dalton 2.5 ml 09/29/19 18:30 09/30/19 10:45 Atrovent NEB 2.5 ml [id number] JONATHAN Administration Methylprednisolone Sodium Succinate 40 mg 09/29/19 23:59 09/30/19 13:04 Solu-Medrol IVP 40 mg Q6HR JONATHAN Administration Pantoprazole Sodium 40 mg 09/29/19 22:00 09/30/19 09:41 Protonix IVP 40 mg 1000,2200 JONATHAN Administration Propofol 1,000 mg 09/29/19 21:28 09/30/19 05:36 Diprivan IV 10/29/19 21:28 1,000 mg INF PRN Administration TO ACHIEVE GOAL RASS Protocol Saccharomyces Boulardii 250 mg 09/30/19 09:00 09/30/19 08:54 Florastor PO 250 mg DAILY JONATHAN Administration Sterile Water 1 ml 09/29/19 18:15 09/30/19 13:04 Bacteriostatic Water FS 1 ml PRN PRN Administration RECONSTITUTION Tamsulosin HCl 0.4 mg 09/29/19 21:00 09/29/19 21:50 Flomax PO Not Given QPM JONATHAN - Exam Neck: negative: supple, symmetric, no JVD, no thyromegaly, no lymphadenopathy, no carotid bruit, JVD Heart: negative: RRR, no murmur, no gallops, no rubs, normal peripheral pulses, irregular, diminshed peripheral pulses, murmur present, II/IV, III/IV Respiratory: negative: CTAB, no wheezes, no rales, no ronchi, normal chest expansion, no tachypnea, normal percussion, rales, rhonchi, tachypneic, wheezes Gastrointestinal: negative: soft, non-tender, non-distended, normal bowel sounds , no palpable masses, no hepatomegaly, no splenomegaly, no bruit, no guarding, no rigidity, tender to palpation, distended, diminished bowl sounds, voluntary guarding Hosp A/P (1) Acute on chronic respiratory failure with hypoxia and hypercapnia Code(s): J96.21 - ACUTE AND CHRONIC RESPIRATORY FAILURE WITH HYPOXIA; J96.22 - ACUTE AND CHRONIC RESPIRATORY FAILURE WITH HYPERCAPNIA Status: Acute (2) Atrial fibrillation with RVR Code(s): I48.91 - UNSPECIFIED ATRIAL FIBRILLATION Status: Acute (3) Community acquired bacterial pneumonia Code(s): J15.9 - UNSPECIFIED BACTERIAL PNEUMONIA Status: Acute (4) Elevated brain natriuretic peptide (BNP) level Code(s): R79.89 - OTHER SPECIFIED ABNORMAL FINDINGS OF BLOOD CHEMISTRY Status : Acute (5) Hypertension Code(s): I10 - ESSENTIAL (PRIMARY) HYPERTENSION Status: Chronic (6) Severe tricuspid regurgitation Code(s): I07.1 - RHEUMATIC TRICUSPID INSUFFICIENCY Status: Chronic - Plan will continue abx, pt awake and following commands. dark blood in his ng tube. will continue ppi and consult gi. will try to wean off levophed. pt's had Sever MR in his echo.
--- NOTE | 2019-09-30 13:53 | RAD ---
FRONTAL RADIOGRAPH CHEST: 09/30/2019 HISTORY: Short of breath. COMPARISON: 09/29/2019 FINDINGS: There is dense consolidation in the right perihilar region/inferior right upper lobe with extensive a ir space disease within the right lung apex and the right infrahilar region. There is also dense cons olidation/collapse of the left lower lobe. These findings are stable. Stable endotracheal tube and na sogastric tube. No pneumothorax. Probable bilateral pleural effusions. IMPRESSION: Stable appearance of the chest as detailed above. Findings suggest multifocal infectious pneumonitis/ aspiration and/or pulmonary edema. POS: [facility]
[2019-09-30] MEDS: Vancomycin HCl 1 GM in Premix Bag 1 BAG IVPB SCH (17:00)
[2019-09-30] MEDS: Diltiazem 125 MG in Sodium Chloride 0.9% 100 ML IVPB SCH (18:25)
[2019-09-30] MEDS: Heparin 5,000 UNITS/ML VIAL SC SCH (19:30)
--- NOTE | 2019-09-30 21:17 | CON ---
Critical care time 30 minutes DATE OF CONSULTATION: HISTORY OF PRESENT ILLNESS: Mr. Verdugo is an 83-year-old male, who presented with several days of shortness of breath. He was found to have an infiltrate consistent with pneumonia and was subsequently intubated. He has a history of COPD. He also has a history of atrial fibrillation. He has had atrial fibrillation on this admission. I was consulted because of his presence in the critical care unit. PAST MEDICAL HISTORY: Remarkable for; 1. BPH. 2. History of hypertension. 3. History of degenerative arthritis. 4. History of pulmonary hypertension, presumably secondary to COPD. 5. History of a hip replacement. 6. History of a herniorrhaphy. MEDICATIONS: Prior to admission, he was on; 1. Demadex. 2. Hytrin. 3. Cartia. 4. Xanax. 5. Aspirin. 6. Warfarin. REVIEW OF SYSTEMS: Not obtainable. SOCIAL HISTORY: It is unclear whether he is smoking or drinking. ALLERGIES: HE HAS NO REPORTED DRUG ALLERGIES. PHYSICAL EXAMINATION: VITAL SIGNS: When he was seen by me this morning; his heart rate was in the 80s , respiratory rates in the teens, oximetry is 98%, and blood pressure 114/56. HEENT: Pupils are equal. Sclerae are anicteric. NECK: Supple. No lymphadenopathy. LUNGS: Remarkable for faint wheezes bilaterally. HEART: Regular rhythm. S1 and S2 are normal. ABDOMEN: Soft and nontender. EXTREMITIES: Without clubbing, cyanosis, or edema. LABORATORY DATA: White count 23, hemoglobin 9.3, and platelets 205,000 sodium 136, potassium 4.4, chloride 93, bicarb 34, BUN 56, and creatinine 2.29. Creatinine was 2.1 yesterday. Intake and output were negative 313. IMPRESSION AND PLAN: 1. Pneumonia. 2. Acute on chronic kidney disease with a bump in creatinine, he needs more volume. 3. Underlying chronic obstructive pulmonary disease. 4. Atrial fibrillation. 5. Chronic CO2 retention with an initial blood gas of 7.44, CO2 of 51, and a pO2 of 47. We will follow the other physicians caring for him. He is currently not weanable. Job ID: [id number] [facility]
--- NOTE | 2019-09-30 21:53 | CON ---
DATE OF CONSULTATION: 09/30/2019 REASON FOR CONSULTATION: GI bleeding. HISTORY OF PRESENT ILLNESS: Mr. Brent Verdugo is an 83-year-old male with COPD, pneumonia, atrial fibrillation with fast ventricular rate. He came to the ER because of progressive shortness of breath over the last several days. He was found to be in respiratory failure and also has evidence of heart failure. He also had left lung pneumonia. The patient has been intubated because of the respiratory failure. Apparently, he was initially on BiPAP, but he was under continuous pressure, dyspnea and subsequently was intubated and then admitted. He has an NG tube placed after the intubation. This morning, he has put out about 4 mL of coffee-ground aspirate. The tube itself does not show any active bleeding. The patient has history of atrial fibrillation and is on Coumadin. His PT and INR markedly prolonged. The PT is almost 44, INR is almost 4.8. The patient has no active bleeding except the NG tube shows some coffee-ground material. The admitting CBC showed hemoglobin to be 10.6 to 11.3. The patient has had no melena. The ICU nurse told me that she saw some blood in the rectum this morning. The patient is on the ventilator and he is awake and does respond to touch. He talked, but he cannot talk because he is on the ventilator. Vital signs are very stable. No relevant history could be obtained because he is on the ventilator. ALLERGIES: NONE. MEDICAL ILLNESSES: 1. COPD. 2. Atrial fibrillation. 3. Benign prostatic hypertrophy. 4. Hypertension. 5. Osteoarthritis. 6. Obesity. PAST SURGICAL HISTORY: 1. Hernia repair. 2. Right hip replacement. MEDICATIONS: 1. Torsemide 20 once a day. 2. Tamsulosin 0.4 mg once a day. 3. Cartia XT 180 mg once a day. 4. Alprazolam 1 mg once a day. 5. Aspirin 81 once a day. 6. Warfarin 2 mg daily. SOCIAL HISTORY: Not able to be obtained because he is on the ventilator. REVIEW OF SYSTEMS: Not able to be obtained because he is on the ventilator. PHYSICAL EXAMINATION: GENERAL: He is actually awake and tries to talk. Does not appear to be in any distress. VITAL SIGNS: Stable, pulse is 87, blood pressure 95/53. HEENT: Conjunctivae are clear. NECK: Supple. No adenitis or thyromegaly noted. CARDIOVASCULAR: First and second heart sounds normal. LUNGS: Clear. Has good air entry on both sides. No wheezing heard. ABDOMEN: Soft and protuberant. Abdomen is nontender. No organomegaly. No masses. EXTREMITIES: Reveal no edema. The NG tube history of coffee-ground material. LABORATORY DATA: Shows PT is 44.3, INR is 4.8, which is markedly prolonged. On admission, WBC 20,800, hematocrit 23,000 today, hemoglobin 10.3, dropping to 9.3, hematocrit 32.7 dropping to 29.8, MCV 94.1. He has polymorphs 59, bandemia of 32%, platelet count is 205,000. Chemistry panel; sodium 136, potassium 4.4, chloride 93, bicarb is 34, blood urea nitrogen 56, creatinine 2.29, glucose 154, lactic acid 2.6, calcium 8.4. Troponin is 0.053. BNP very high at 2256.9. Chest x-ray shows dense consolidation in right perihilar region and inferior right upper lobe with extensive airspace disease. IMPRESSION: 1. An 83-year-old male with respiratory failure, presents with dyspnea and has been intubated because of the pneumonia. He has had NG tube placed and NG tube is draining some coffee-ground material. He is not having any fresh blood in the NG tube. Unfortunately, he was on warfarin until today and his PT and INR has markedly prolonged. The bleeding may be mucosa from diffuse oozing of blood from the anticoagulation effect versus possibly ulcer disease. 2. Chronic obstructive pulmonary disease. 3. Atrial fibrillation. 4. Hypertension. 5. Benign prostatic hypertrophy. 6. Right hip replacement. 7. Osteoarthritis. RECOMMENDATION: 1. IV PPI. 2. Serial H and H. 3. Transfuse p.r.n. 4. Once the PT and INR comes back to a reasonable level, may consider EGD at some point in time. At the present time, we will defer any endoscopy studies because of prolonged INR and PT. Job ID: [id number]
[2019-09-30] MEDS: Sodium Chloride 0.9% 1,000 ML IV SCH (22:06)
[2019-09-30] MEDS: Tamsulosin HCl 0.4 MG CAP PO SCH (22:06)
[2019-10-01] MEDS: Piperacillin/Tazobactam 4.5 GM in Sodium Chloride 0.9% 100 ML IVPB SCH ×2 (00:04→06:15)
[2019-10-01] MEDS: methylPREDNISolone Sod Succ 40 MG VIAL IVP SCH ×5 (00:04→23:54)
[2019-10-01] MEDS: Ipratropium Bromide 2.5 ml Neb NEB SCH ×3 (02:27→10:36)
[2019-10-01 05:05] LABS: Anion Gap 11 mmol/L (10-20); BUN (Urea Nitrogen) 67 mg/dL (8.4-25.7); Calc. Creatinine Clearance 33 mL/min (70-130); Calcium 8.5 mg/dL (7.8-10.44); Carbon Dioxide 33 mmol/L (23-31); Chloride 97 mmol/L (98-107); Estimated GFR-MDRD 30; Glucose 138 mg/dL (83-110); Potassium 4.1 mmol/L (3.5-5.1); Sodium 137 mmol/L (136-145)
[2019-10-01 05:21] LABS: Band 28 % (5-11); Hemoglobin 9.1 g/dL (14.0-18.0); Lymphocytes 5 % (21-51); MDiff Complete? YES; Mean Corpuscular HGB CONC 32.1 g/dL (32.0-36.0); Mean Corpuscular Hemoglobin 30.1 pg (27.0-31.0); Mean Corpuscular Volume 93.8 fL (78.0-98.0); Mean Platelet Volume 8.8 fL (7.4-10.4); Monocytes 1 % (0-10); Neutrophil 66 % (42-75); Platelet Count 187 thou/uL (130-400); Red Blood Cell (RBC) Count 3.01 mill/uL (4.70-6.10); White Blood Cell (WBC) Count 12.6 thou/uL (4.8-10.8)
[2019-10-01 06:55] LABS: Actual Bicarbonate (HCO3a) 31.9 mEq/L (22-28); CO2 Tension 47.4 mmHg (35.0-45.0); Calcium, Ionized 1.08 mmol/L (1.12-1.30); Carboxyhemoglobin (COHb) 0.3 gm% (0.0-3.0); Hemoglobin (Hb) 10.2 g/dL (14.0-18.0); O2 Tension (PaO2) 69.8 mmHg (> 60.0); pH, Arterial 7.45 (7.35-7.45)
[2019-10-01 06:56] LABS: Puncture Site RRA
--- NOTE | 2019-10-01 08:10 | RAD ---
Chest one view HISTORY: Intubated. Dyspnea. Follow-up. COMPARISON: 09/30/2019. FINDINGS: Cardiac silhouette is magnified and enlarged. Pulmonary vasculature remains engorged. Patch y areas of parenchymal infiltrate within the left lower lobe and each right lung lobe are again demonstrated, most severe throughout the right upper lobe. Dense consolidation at the left lower lobe is again demonstrated. Right pleural fluid now better visualized. Mediastinum remains midline with aortic calcification. Endotracheal catheter remains in good radiographic position. Proximal sidehole of the nasogastric tube is above the expected level of the GE junction. IMPRESSION: Multifocal infiltrate and left lower lobe consolidation are stable. Nasogastric tube should probably be advanced approximately 10 cm for better positioning.
--- NOTE | 2019-10-01 08:56 | PRG ---
DATE OF SERVICE: 10/01/2019 SUBJECTIVE: An 83-year-old gentleman, intubated in the vent with progressive respiratory failure. X-ray still shows bilateral pneumonia, right greater than left. OBJECTIVE: GENERAL: He is awake, alert, responsive. VITAL SIGNS: His saturations are 99%, blood pressure 130/80, resp 32, pulse 100. CHEST: Bilateral rhonchi and crackles. CARDIAC: Normal S1 and S2. No gallops. ABDOMEN: No masses. LABORATORY DATA: Creatinine is 2, BUN is 67. PO2 is 69, pCO2 is 43 ph 7.43. White count 12,000, H and H 9 and 28, big left shift. ASSESSMENT: Respiratory failure, bilateral pneumonia, renal failure, atrial fibrillation. PLAN: He is not weanable at this stage. We will start nutrition. Continue broad-spectrum antibiotics, neb treatments, steroids, vancomycin. We will wean when stable. One-half hour of critical time. Job ID: [id number] [id number]
[2019-10-01] MEDS: Saccharomyces boulardii 250 MG CAP PO SCH (09:32)
[2019-10-01] MEDS: fentaNYL Citrate/PF 2,000 MCG in Sodium Chloride 0.9% 60 ML IV SCH (09:35)
[2019-10-01] MEDS: cefTRIAXone\\ROCEPHIN 2 GM in Sodium Chloride 0.9% 100 ML IVPB SCH (09:49)
[2019-10-01] MEDS: Pantoprazole 40 MG VIAL IVP SCH ×2 (10:00→21:42)
[2019-10-01 14:40] LABS: Vancomycin, Trough 14.3 ug/mL
[2019-10-01] MEDS: Vancomycin HCl 1 GM in Premix Bag 1 BAG IVPB SCH (15:05)
--- NOTE | 2019-10-01 15:56 | PRG ---
DATE OF SERVICE: 10/01/2019 SUBJECTIVE: Mr. Verdugo remains on ventilator. He is awake and alert and able to communicate. He is not having any abdominal pain. Coffee-ground aspirate from the orogastric tube essentially cleared up overnight and he had none this morning. Tube feeds have been restarted. No report of melena. He remained otherwise hemodynamically stable. Hemoglobin drifted down slightly to 9.1. OBJECTIVE: VITAL SIGNS: Temperature 98.5, pulse 96, blood pressure 136/82, and 98% oxygen saturation on ventilator. GENERAL: Awake and alert, comfortable on ventilator, able to communicate by writing. HEART: Regular rate and rhythm. LUNGS: Bibasilar crackles on ventilator. ABDOMEN: Soft and nontender to palpation. EXTREMITIES: No peripheral edema. LABORATORY STUDIES: Hemoglobin 9.1, WBC 12.6, and platelets 187. INR was 4.8 on admission, no recheck since then. Sodium 137, potassium 4.1, BUN 67, and creatinine 2.11. ASSESSMENT AND PLAN: 1. Coffee-ground emesis from nasogastric tube. 2. Coagulopathy, with supratherapeutic INR. 3. Pneumosepsis. 4. Respiratory failure, on ventilator. I agree with Dr. Santos's plan to defer any esophagogastroduodenoscopy until INR comes back at less than 1.8, preferably less than 1.5. There is no evidence of hemodynamically significant bleeding. He has had a 1 point drop in hemoglobin over the past couple of days. Continue to hold warfarin. GI can remain available for endoscopy later this admission. Please call anytime with questions or concerns. Job ID: [id number]
--- NOTE | 2019-10-01 16:56 | PDOC.HOSPP ---
- Subjective Encounter Date: 10/01/19 Encounter Time: 10:00 Subjective: pt up in bed intubated but is awake. - Objective Vital Signs & Weight: Vital Signs (12 hours) Temp Pulse Resp BP Pulse Ox 10/01/19 16:00 98.2 F 17 10/01/19 14:32 96 136/82 10/01/19 14:00 15 10/01/19 13:07 94 138/85 10/01/19 12:00 98.5 F 18 10/01/19 10:37 95 125/62 10/01/19 10:00 17 10/01/19 08:00 98.4 F 16 96 10/01/19 07:32 99 113/60 10/01/19 06:00 16 Weight Admit Weight 193 lb 4.8 oz Weight 193 lb 1.6 oz Most Recent Monitor Data Heart Rate from ECG 94 NIBP 131/95 NIBP BP-Mean 107 Respiration from ECG 17 SpO2 97 I&O: 09/30/19 10/01/19 10/02/19 06:59 06:59 06:59 Intake Total 606.3 1745.2 90 Output Total 920 1280 645 Balance -313.7 465.2 -555 Result Diagrams: 10/01/19 04:00 10/01/19 04:00 Hospitalist ROS - Review of Systems Respiratory: denies: cough, dry, shortness of breath, hemoptysis, SOB with excertion, pleuritic pain, sputum, wheezing, other Cardiovascular: denies: chest pain, palpitations, orthopnea, paroxysmal noc. dyspnea, edema, light headedness, other - Medication Medications: Active Medications Generic Name Dose Route Start Last Admin Trade Name Freq PRN Reason Stop Dose Admin Albuterol/Ipratropium 3 ml 10/01/19 14:30 10/01/19 14:32 Duoneb NEB 3 ml [id number] JONATHAN Administration Fentanyl Citrate 2,000 mcg/ 100 mls @ 0 mls/hr 09/29/19 17:20 10/01/19 09:35 Sodium Chloride IV 10/29/19 17:20 100 mls INF JONATHAN Administration Protocol Per Protocol Diltiazem HCl 125 mg/ Sodium 125 mls @ 10 mls/hr 09/29/19 19:30 09/30/19 18: 25 Chloride IVPB 125 mls INF JONATHAN Administration Protocol 10 MG/HR Sodium Chloride 1,000 mls @ 30 mls/hr 09/29/19 20:30 09/30/19 22:06 Normal Saline 0.9% IV 1,000 mls .Q24H JONATHAN Administration Ceftriaxone Sodium 2 gm/ 100 mls @ 200 mls/hr 10/01/19 07:45 10/01/19 09:49 Sodium Chloride IVPB 100 mls Q24HR JONATHAN Administration Methylprednisolone Sodium Succinate 40 mg 09/29/19 23:59 10/01/19 13:00 Solu-Medrol IVP 40 mg Q6HR JONATHAN Administration Pantoprazole Sodium 40 mg 09/29/19 22:00 10/01/19 10:00 Protonix IVP 40 mg 1000,2200 JONATHAN Administration Propofol 1,000 mg 09/29/19 21:28 09/30/19 05:36 Diprivan IV 10/29/19 21:28 1,000 mg INF PRN Administration TO ACHIEVE GOAL RASS Protocol Saccharomyces Boulardii 250 mg 09/30/19 09:00 10/01/19 09:32 Florastor PO 250 mg DAILY JONATHAN Administration Sterile Water 1 ml 09/29/19 18:15 09/30/19 17:54 Bacteriostatic Water FS 1 ml PRN PRN Administration RECONSTITUTION Tamsulosin HCl 0.4 mg 09/29/19 21:00 09/30/19 22:06 Flomax PO Not Given QPM JONATHAN - Exam Heart: negative: RRR, no murmur, no gallops, no rubs, normal peripheral pulses, irregular, diminshed peripheral pulses, murmur present, II/IV, III/IV Respiratory: negative: CTAB, no wheezes, no rales, no ronchi, normal chest expansion, no tachypnea, normal percussion, rales, rhonchi, tachypneic, wheezes Gastrointestinal: negative: soft, non-tender, non-distended, normal bowel sounds , no palpable masses, no hepatomegaly, no splenomegaly, no bruit, no guarding, no rigidity, tender to palpation, distended, diminished bowl sounds, voluntary guarding Hosp A/P (1) Acute on chronic respiratory failure with hypoxia and hypercapnia Code(s): J96.21 - ACUTE AND CHRONIC RESPIRATORY FAILURE WITH HYPOXIA; J96.22 - ACUTE AND CHRONIC RESPIRATORY FAILURE WITH HYPERCAPNIA Status: Acute (2) Atrial fibrillation with RVR Code(s): I48.91 - UNSPECIFIED ATRIAL FIBRILLATION Status: Acute (3) Community acquired bacterial pneumonia Code(s): J15.9 - UNSPECIFIED BACTERIAL PNEUMONIA Status: Acute (4) Elevated brain natriuretic peptide (BNP) level Code(s): R79.89 - OTHER SPECIFIED ABNORMAL FINDINGS OF BLOOD CHEMISTRY Status : Acute (5) Hypertension Code(s): I10 - ESSENTIAL (PRIMARY) HYPERTENSION Status: Chronic (6) Severe tricuspid regurgitation Code(s): I07.1 - RHEUMATIC TRICUSPID INSUFFICIENCY Status: Chronic - Plan will continue abx, pt awake and following commands. dark blood in his ng tube. will continue ppi and consult gi. will try to wean off levophed. pt's had Sever MR in his echo. 10/01 will continue abx for now, possible extubation in am. will continue Cardizem now and in am after extubation will put pt back on his oral meds. He is on meds for chronic pain.
--- NOTE | 2019-10-01 17:58 | CON ---
DATE OF CONSULTATION: 10/01/2019 REASON FOR CONSULTATION: Bacteremia. HISTORY OF PRESENT ILLNESS: An 83-year-old who has had COPD with a few admissions for complications related to it and now comes in with worsening dyspnea. Two days prior to admission, he was given nebulizer treatments and O2 supplementation. Despite of that, oxygenation remained borderline. Initial exam with blood pressure 140/70, temperature 102.4. He was placed on BiPAP. There was moderate respiratory distress noted and wheezing and diffuse rhonchi and inspiratory crackles. He was tachycardic. Lower extremities with stasis dermatitis. Heart exam showed no murmurs. Initial labs with white cell count 20.8, hemoglobin 10.3, platelets 198 with 50% bands. INR 4.8. PH 7.4, pCO2 51, PO2 47. Sodium 135, creatinine 2.10 with a baseline of 1.1. Lactic acid 2.7. BNP 2200. Albumin 3.5. Serum total protein 6.4, globulin 2.9. Now he has 2 sets of blood cultures with Streptococcus pneumoniae. The patient is intubated, but is wide awake. He is flipping the channels using the controller, writing questions and writing answers as well. There is a plan for weaning, started today, may be tomorrow extubation. He denies any headaches. He denies any chest pain or back pain. No joint symptoms. Has a Jones catheter. No diarrhea. PAST MEDICAL HISTORY: Hypertension, COPD, atrial fibrillation, former smoker, rheumatoid arthritis, cardiomyopathy. He has had a hip replacement for management of osteonecrosis, probably from corticosteroid use for management of COPD. SOCIAL HISTORY: Former smoker. [place] in the area. Drinks beer daily, quite a few drinks per day. 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 ALLERGIES: NONE. CURRENT MEDICATIONS: 1. Inhalers. 2. Ceftriaxone. 3. Diltiazem. 4. Fentanyl. 5. Levaquin. 6. Medrol. 7. Levophed. 8. Vancomycin. PHYSICAL EXAMINATION: VITAL SIGNS: Temperature is normal, blood pressure 130/95, pulse 96, respirations 17, FiO2 40, PEEP of 5. SKIN: With peripheral IV access. The patient has a Jones catheter. No areas of skin breakdown. He does have, however, stasis dermatitis in lower extremities. HEENT: No lymphadenopathy. Ocular movements conjugate. Sclerae white. Pupils are equal. Oral cavity with quite a few teeth missing and the remainder ones with significant decay and gum disease. NECK: Supple. No jugular vein distention. LUNGS: Symmetric air entry. I could not hear any obvious wheezing or crackles. HEART: Diminished heart sounds. No obvious murmurs. No S3. ABDOMEN: Soft, not distended or tender. No ascites. No bladder distention. EXTREMITIES: No joint inflammatory activity. Pulses 1+ in dorsalis pedis. No edema. He is able to move extremities equally. NEUROLOGIC: He appears to have normal cognitive functions. Able to write and ask questions. Oriented. Watching TV. LABORATORY DATA: White cell count now is down to 12.6, hemoglobin 9.1, platelets 187. Sodium 135, creatinine 2.10 and now creatinine down to 2.1, actually it is about the same. IMAGING STUDIES: We have an echo with EF of 35% to 40%. Chest x-ray with multifocal infiltrates, left lower lobe consolidation. ASSESSMENT AND PLAN: Longstanding chronic obstructive pulmonary disease; atrial fibrillation; Streptococcus pneumoniae bacteremia with multifocal areas of pneumonia; respiratory failure, requiring intubation; bacteremia; and Streptococcus pneumoniae. Most the strains of strep pneumo are sensitive to penicillin in this area and certainly almost all sensitive to Rocephin, so we can discontinue vancomycin and levofloxacin and we just leave him on Rocephin to simplify therapy and decrease the risk of Clostridium difficile infection. He is at risk for complication of Streptococcus pneumoniae bacteremia and pneumonia with empyema and so on, but no evidence of such at this point, also no bone or joint inflammatory process noted at this time. The patient had a strep pneumo vaccination about 3 years ago, I do not know which one he had, probably needs a Prevnar given at this time plus influenza vaccine if he has not had it yet. He did have influenza testing on arrival, which was negative. Influenza antigen testing has limited its sensitivity around 60% sensitivity for influenza, so he may miss a few cases. He has had a history of heroin use in the past. We will go and check hepatitis C serology since I do not see one in the record. Job ID: [id number]
[2019-10-01] MEDS: Diltiazem 125 MG in Sodium Chloride 0.9% 100 ML IVPB SCH (18:29)
[2019-10-01] MEDS: Bacteriostatic Water 30 ML VIAL FS PRN (18:31)
[2019-10-01] MEDS ORDERED: Sodium Bicarbonate Tab 325 MG TAB PER TUBE PRN (19:13)
[2019-10-01] MEDS: Tamsulosin HCl 0.4 MG CAP PO SCH (20:46)
[2019-10-02 04:56] LABS: Anion Gap 11 mmol/L (10-20); BUN (Urea Nitrogen) 81 mg/dL (8.4-25.7); Calc. Creatinine Clearance 30 mL/min (70-130); Calcium 8.7 mg/dL (7.8-10.44); Carbon Dioxide 33 mmol/L (23-31); Chloride 98 mmol/L (98-107); Estimated GFR-MDRD 28; Glucose 298 mg/dL (83-110); Potassium 3.6 mmol/L (3.5-5.1); Sodium 138 mmol/L (136-145)
[2019-10-02] MEDS: methylPREDNISolone Sod Succ 40 MG VIAL IVP SCH (05:07)
[2019-10-02] MEDS: Sodium Chloride 0.9% 1,000 ML IV SCH ×2 (05:07→14:35)
[2019-10-02 05:21] LABS: Prothrombin Time 76.5 SEC (12.0-14.7)
[2019-10-02 05:25] LABS: INR-International Normal Ratio 9.7
[2019-10-02] MEDS ORDERED: Phytonadione 10 MG/ML AMP SLOW IVP SCH (05:45)
[2019-10-02] MEDS: fentaNYL Citrate/PF 2,000 MCG in Sodium Chloride 0.9% 60 ML IV SCH (05:47)
[2019-10-02 05:56] LABS: Band 17 % (5-11); Hemoglobin 8.8 g/dL (14.0-18.0); Lymphocytes 7 % (21-51); MDiff Complete? YES; Mean Corpuscular Hemoglobin 28.9 pg (27.0-31.0); Mean Corpuscular Volume 93.2 fL (78.0-98.0); Mean Platelet Volume 8.7 fL (7.4-10.4); Monocytes 1 % (0-10); Neutrophil 75 % (42-75); Platelet Count 171 thou/uL (130-400); Red Blood Cell (RBC) Count 3.03 mill/uL (4.70-6.10); White Blood Cell (WBC) Count 9.2 thou/uL (4.8-10.8)
[2019-10-02 06:41] LABS: ALT (SGPT) 23 U/L (8-55); AST (SGOT) 21 U/L (5-34); Alkaline Phosphatase 91 U/L (40-110); Bilirubin, Direct 0.6 mg/dL (0.1-0.3); Bilirubin, Total 0.9 mg/dL (0.2-1.2); Protein, Total 6.4 g/dL (5.8-8.1)
--- NOTE | 2019-10-02 07:48 | RAD ---
Chest AP view INDICATION: Chest pain COMPARISON: October 01, 2019 FINDINGS: Lungs:Right-sided perihilar opacities persist. 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 Cardiac silhouette:Cardiomegaly is stable Pulmonary vasculature:Pulmonary vascular congestion persists Pleural spaces:Bilateral pleural effusions persist Upper abdomen:No abnormality seen. Osseous structures: No acute osseous abnormality. Additional findings:ET tube and gastric catheter unchanged. IMPRESSION: Stable exam
[2019-10-02] MEDS: cefTRIAXone\\ROCEPHIN 2 GM in Sodium Chloride 0.9% 100 ML IVPB SCH (08:04)
[2019-10-02] MEDS: Saccharomyces boulardii 250 MG CAP PO SCH (08:05)
[2019-10-02] MEDS ORDERED: Sodium Chloride 0.9% 1,000 ML IV SCH (08:17)
[2019-10-02] MEDS ORDERED: DC Sedation Protocol FS ONE (08:17)
--- NOTE | 2019-10-02 09:00 | PRG ---
DATE OF SERVICE: 10/02/2019 SUBJECTIVE: This morning, the patient is more awake, responsive, low-dose fentanyl. OBJECTIVE: VITAL SIGNS: Pulse 88, blood pressure 143/95, respiratory rate 18, and afebrile. His I's and O's have been consistently ahead. NEUROLOGIC: He is neurologically awake, alert, responsive. CHEST: Decreased breath sounds, bilateral rhonchi. CARDIAC: Normal S1, S2. No gallops. Abdomen: No masses. LABORATORY DATA: Glucose is 298, creatinine 2.3, BUN 81. X-ray shows a right-sided infiltrate. IMPRESSION: Respiratory failure, secondary to pneumosepsis. Prolonged PT/INR. Atrial fibrillation. PLAN: We will try and wean and hopefully extubate today. One-half hour of critical time. Job ID: [id number]
[2019-10-02] MEDS: Pantoprazole 40 MG VIAL IVP SCH ×2 (09:20→22:12)
[2019-10-02 09:52] LABS: INR-International Normal Ratio 3.2; Prothrombin Time 32.7 SEC (12.0-14.7)
--- NOTE | 2019-10-02 10:09 | ULT ---
Bilateral renal ultrasound CLINICAL INDICATION: Acute renal insufficiency. COMPARISON: None FINDINGS: Right kidney: There is no evidence of a renal mass, renal calculus, or hydronephrosis seen. The right kidney measures 10.8 cm x 6.2 cm. Left kidney: A 3.9 cm exophytic hypoechoic structure seen in the superior pole left kidney. There is suggestion of posterior acoustic enhancement is probably represents a renal cyst. The internal echogenic material within the cystic structure is likely artifactual. However, given the internal ech ogenicity, CT scan of the abdomen is recommended for confirmation depending on patient's degree of renal insufficiency. If intravenous contrast is unable to be administered, a follow-up ultrasound exa mination may be beneficial for further evaluation. The left kidney measures 10.1 cm x 5.9 cm. Urinary bladder: Jones catheter is in place in a decompressed urinary bladder. IMPRESSION: Hypoechoic cystic structure superior pole left kidney likely related to a renal cyst. Internal echoge bree material within this cystic lesion is probably artifactual, but given that this lesion does not demonstrate a completely simple cystic appearance, CT scan with and without IV contrast is recommende d depending on patient's degree of renal insufficiency. If patient's renal insufficiency prevents administration of intravenous contrast, follow-up ultrasound is suggested for further evaluation.
[2019-10-02] MEDS ORDERED: Furosemide 20 MG/2 ML VIAL SLOW IVP SCH (13:30)
[2019-10-02] MEDS ORDERED: Digoxin 0.5 MG/2 ML AMP SLOW IVP SCH (13:30)
--- NOTE | 2019-10-02 14:44 | CON ---
DATE OF CONSULTATION: 10/02/2019 REASON FOR CONSULTATION: Respiratory failure and history of atrial fibrillation. HISTORY OF PRESENT ILLNESS: Mr. Verduog is a very pleasant gentleman with a long history of COPD. He was admitted to the hospital with progressive difficulty breathing, worsened to the point where he required intubation. He is now extubated, feeling better. PAST MEDICAL HISTORY: 1. History of chronic atrial fibrillation. 2. Chronic obstructive pulmonary disease. MEDICATIONS: Medication at home included; 1. Diltiazem CD 120 mg a day. 2. Tamsulosin. 3. Coumadin aiming for INR of 2 to 3. 4. Digoxin 0.125 mg 3 days a week. 5. Prednisone. 6. Albuterol inhaler. ALLERGIES: NONE KNOWN. SOCIAL HISTORY: No alcohol or tobacco now. He said about 10 years ago, he completely quit any alcohol intake and completely stopped smoking. He has not smoked a cigarette since then or had any alcohol since then. PHYSICAL EXAMINATION: GENERAL: This is a pleasant elderly gentleman, in no distress. VITAL SIGNS: Blood pressure is 154/101, pulse 90 and it is irregular. HEENT: Eyes, sclerae nonicteric. Mouth, mucous membranes are moist. NECK: Supple. No lymphadenopathy. LUNGS: Clear. No wheezing, rales, or rhonchi. CARDIAC: Irregularly irregular. ABDOMEN: Soft and nontender. EXTREMITIES: Warm and dry. No clubbing. No cyanosis. There is no edema. PERTINENT LABORATORY: WBC was 20,000, now is 9.2. Creatinine went up to 2.28. Troponin 0.1. Digoxin was less than 0.15. Echocardiogram read here revealed ejection fraction of 35% to 40%. Previously within the 40% to 45% range. Dr. aPinter thought that the patient has severe aortic stenosis. I will review that. Previously that was not diagnosed, it really does not fit however with the gradient of only 20 mm peak and 12 mm mean gradient. ASSESSMENT: 1. Congestive heart failure, systolic and diastolic mixed. 2. Aortic valve disease with some stenosis. I will review the images. I think it is unlikely that he truly has severe aortic stenosis. 3. He has renal insufficiency as well. PLAN: Continue supportive care. I will be glad to follow with you. We will probably change him from intravenous Cardizem today to oral Cardizem tomorrow. We will give at least one dose of digoxin today and reduce intravenous fluid and give a dose of Lasix. Job ID: [id number]
[2019-10-02] MEDS: Tamsulosin HCl 0.4 MG CAP PO SCH (20:37)
[2019-10-02] MEDS: Buprenorphine 8mg/Naloxone 2mg per 1 FILM SL SCH (20:37)
[2019-10-02] MEDS: Diltiazem 125 MG in Sodium Chloride 0.9% 100 ML IVPB SCH (20:54)
[2019-10-03] MEDS ORDERED: Ondansetron PF 4 MG/2 ML Vial SLOW IVP PRN (05:09)
[2019-10-03 05:17] LABS: INR-International Normal Ratio 1.8; Prothrombin Time 20.7 SEC (12.0-14.7)
[2019-10-03 05:27] LABS: Anion Gap 10 mmol/L (10-20); BUN (Urea Nitrogen) 68 mg/dL (8.4-25.7); Calc. Creatinine Clearance 41 mL/min (70-130); Calcium 8.7 mg/dL (7.8-10.44); Carbon Dioxide 34 mmol/L (23-31); Chloride 98 mmol/L (98-107); Estimated GFR-MDRD 38; Glucose 174 mg/dL (83-110); Potassium 3.3 mmol/L (3.5-5.1); Sodium 139 mmol/L (136-145)
[2019-10-03 06:24] LABS: Band 7 % (5-11); Hemoglobin 8.8 g/dL (14.0-18.0); Lymphocytes 3 % (21-51); MDiff Complete? YES; Mean Corpuscular HGB CONC 31.1 g/dL (32.0-36.0); Mean Corpuscular Volume 93.2 fL (78.0-98.0); Mean Platelet Volume 8.2 fL (7.4-10.4); Monocytes 3 % (0-10); Myelocyte 1 % (0-0); Neutrophil 86 % (42-75); Platelet Count 180 thou/uL (130-400); Red Blood Cell (RBC) Count 3.04 mill/uL (4.70-6.10); White Blood Cell (WBC) Count 11.1 thou/uL (4.8-10.8)
--- NOTE | 2019-10-03 07:44 | PDOC.HOSPP ---
- Subjective Encounter Date: 10/02/19 Encounter Time: 11:15 Subjective: pt up in bed feels well. - Objective Vital Signs & Weight: Vital Signs (12 hours) Temp Pulse Resp Pulse Ox 10/03/19 06:27 83 22 H 92 L 10/03/19 05:00 97.4 F L 10/03/19 02:09 77 15 92 L 10/03/19 00:00 97.6 F 10/02/19 22:05 87 24 H 93 L 10/02/19 20:00 97.9 F 95 Weight Admit Weight 193 lb 4.8 oz Weight 178 lb 5.663 oz Most Recent Monitor Data Heart Rate from ECG 88 NIBP 143/63 NIBP BP-Mean 89 Respiration from ECG 26 SpO2 92 I&O: 10/02/19 10/03/19 10/04/19 06:59 06:59 06:59 Intake Total 1466.4 3527.5 Output Total 1365 2860 Balance 101.4 667.5 Result Diagrams: 10/03/19 04:49 10/03/19 04:49 Hospitalist ROS - Review of Systems Respiratory: denies: cough, dry, shortness of breath, hemoptysis, SOB with excertion, pleuritic pain, sputum, wheezing, other Cardiovascular: denies: chest pain, palpitations, orthopnea, paroxysmal noc. dyspnea, edema, light headedness, other Gastrointestinal: denies: nausea, vomiting, abdominal pain, diarrhea, constipation, melena, hematochezia, other - Medication Medications: Active Medications Generic Name Dose Route Start Last Admin Trade Name Freq PRN Reason Stop Dose Admin Albuterol/Ipratropium 3 ml 10/01/19 14:30 10/03/19 06:27 Duoneb NEB 3 ml [id number] JONATHAN Administration Buprenorphine/Naloxone 1 film 10/02/19 21:00 10/02/19 20:37 Suboxone SL 1 film HS JONATHAN Administration Ceftriaxone Sodium 2 gm/ 100 mls @ 200 mls/hr 10/01/19 07:45 10/02/19 08:04 Sodium Chloride IVPB 100 mls Q24HR JONATHAN Administration Sodium Chloride 1,000 mls @ 50 mls/hr 10/02/19 13:19 10/02/19 14:35 Normal Saline 0.9% IV Not Given .Q20H JONATHAN Ondansetron HCl 4 mg 10/03/19 05:09 10/03/19 05:16 Zofran SLOW IVP 4 mg Q6H PRN Administration Nausea Pantoprazole Sodium 40 mg 09/29/19 22:00 10/02/19 22:12 Protonix IVP 40 mg 1000,2200 JONATHAN Administration Saccharomyces Boulardii 250 mg 09/30/19 09:00 10/02/19 08:05 Florastor PO 250 mg DAILY JONATHAN Administration Sterile Water 1 ml 09/29/19 18:15 10/01/19 18:31 Bacteriostatic Water FS 1 ml PRN PRN Administration RECONSTITUTION Tamsulosin HCl 0.4 mg 09/29/19 21:00 10/02/19 20:37 Flomax PO 0.4 mg QPM JONATHAN Administration - Exam Neck: negative: supple, symmetric, no JVD, no thyromegaly, no lymphadenopathy, no carotid bruit, JVD Heart: negative: RRR, no murmur, no gallops, no rubs, normal peripheral pulses, irregular, diminshed peripheral pulses, murmur present, II/IV, III/IV Respiratory: negative: CTAB, no wheezes, no rales, no ronchi, normal chest expansion, no tachypnea, normal percussion, rales, rhonchi, tachypneic, wheezes Hosp A/P (1) Acute on chronic respiratory failure with hypoxia and hypercapnia Code(s): J96.21 - ACUTE AND CHRONIC RESPIRATORY FAILURE WITH HYPOXIA; J96.22 - ACUTE AND CHRONIC RESPIRATORY FAILURE WITH HYPERCAPNIA Status: Acute (2) Atrial fibrillation with RVR Code(s): I48.91 - UNSPECIFIED ATRIAL FIBRILLATION Status: Acute (3) Community acquired bacterial pneumonia Code(s): J15.9 - UNSPECIFIED BACTERIAL PNEUMONIA Status: Acute (4) Elevated brain natriuretic peptide (BNP) level Code(s): R79.89 - OTHER SPECIFIED ABNORMAL FINDINGS OF BLOOD CHEMISTRY Status : Acute (5) Hypertension Code(s): I10 - ESSENTIAL (PRIMARY) HYPERTENSION Status: Chronic (6) Severe tricuspid regurgitation Code(s): I07.1 - RHEUMATIC TRICUSPID INSUFFICIENCY Status: Chronic - Plan will continue abx, pt awake and following commands. dark blood in his ng tube. will continue ppi and consult gi. will try to wean off levophed. pt's had Sever MR in his echo. 10/01 will continue abx for now, possible extubation in am. will continue Cardizem now and in am after extubation will put pt back on his oral meds. He is on meds for chronic pain. 10/02 pt extubated, doing well. will switch his meds to oral. continue abx. will monitor his creatinine if worsens will get nephro.
[2019-10-03] MEDS ORDERED: Potassium Chloride 10 MEQ TAB PO SCH (08:00)
--- NOTE | 2019-10-03 08:02 | PRG ---
DATE OF SERVICE: 10/03/2019 SUBJECTIVE: Brent Verdugo this morning is more awake, alert, responsive, having some vague chest pain, but less shortness of breath. OBJECTIVE: VITAL SIGNS: Pulse 73, respiratory rate 22, saturations are 92% on 3 L, and blood pressure 140/60. I's and O's have been slightly ahead. CHEST: Decreased breath sounds. No wheezing. CARDIAC: Normal S1 and S2. No gallops. ABDOMEN: No masses. LABORATORY DATA: INR is 1.8. White count 11,000, H and H of 9 and 28, and platelet count 80. BUN and creatinine improved, 60 and 1.2. ASSESSMENT: 1. Streptococcus pneumoniae. 2. Sepsis. 3. Aortic stenosis. 4. Azotemia, prerenal. 5. Supraventricular tachycardia. PLAN: The patient is much improved. Though, he is still having issues with his breathing. I am going to restart him on his home Cardizem. He was started on digoxin yesterday by Cardiology. Switch over to p.o. prednisone. Continue antibiotics IV for another 24 hours, then p.o. We will follow. One-half hour of critical care time. Job ID: [id number]
[2019-10-03] MEDS ORDERED: Digoxin 0.5 MG/2 ML AMP SLOW IVP SCH (08:15)
[2019-10-03] MEDS ORDERED: Potassium Chloride 20 MEQ TAB PO SCH (08:15)
--- NOTE | 2019-10-03 08:50 | PRG ---
DATE OF SERVICE: 10/03/2019 SUBJECTIVE: Mr. Verdugo is sitting up at the bedside. He is breathing better, he said. OBJECTIVE: VITAL SIGNS: His blood pressure 140/60, pulse is 110 and it is atrial fibrillation. LUNGS: No wheezing. He has diffuse rhonchi. CARDIAC: Tachycardic and irregular. Heart sounds distant. ABDOMEN: Soft, nontender. EXTREMITIES: No edema. DIAGNOSTIC STUDIES: I reviewed the echocardiogram, the ejection fraction is approximately 40%. The aortic stenosis is likely [id number]. The patient did not have any significant aortic stenosis a year ago on an echo and the peak gradient now is 22 mmHg and the mean 12. ASSESSMENT: 1. Chronic atrial fibrillation, rate is increased now. 2. Diastolic and systolic congestive heart failure, combined. 3. Chronic obstructive pulmonary disease, severe. 4. Pneumonia. PLAN: 1. Resume Cardizem. 2. Digoxin. 3. Replete potassium. 4. Resume Coumadin. 5. Torsemide. 6. Okay with me to go to the floor. Dr. Lamas will be seeing in the next few days. Job ID: [id number]
[2019-10-03] MEDS ORDERED: Torsemide 20 MG TAB PO SCH (09:00)
[2019-10-03] MEDS ORDERED: methylPREDNISolone Sod Succ 40 MG VIAL IVP SCH (09:00)
[2019-10-03] MEDS: cefTRIAXone\\ROCEPHIN 2 GM in Sodium Chloride 0.9% 100 ML IVPB SCH (09:05)
[2019-10-03] MEDS: predniSONE 20 MG TAB PO SCH (09:06)
[2019-10-03] MEDS: Saccharomyces boulardii 250 MG CAP PO SCH (09:06)
[2019-10-03] MEDS: Pantoprazole 40 MG GRANULES PACKET PO SCH ×2 (09:06→20:05)
[2019-10-03] MEDS: Digoxin 0.125 MG TAB PO SCH (09:07)
--- NOTE | 2019-10-03 09:14 | RAD ---
EXAM: Single view of the chest HISTORY: CHF COMPARISON: 10/02/2019 FINDINGS: Single view of the chest shows an enlarged but stable cardiomediastinal silhouette. Athero sclerotic calcifications are seen in the aorta. The endotracheal tube and NG tube have been removed. Stable multifocal opacities are seen in the right chest. There is a small right pleural effu tanja. The bones are unremarkable. IMPRESSION: Stable multifocal infiltrates and right pleural effusion.
--- NOTE | 2019-10-03 12:13 | PRG ---
DATE OF SERVICE: 10/03/2019 SUBJECTIVE: Mr. Verdugo is doing a lot better. He was able to be extubated. He is tolerating his diet. He reports no nausea. No melena. He does complain of some ongoing intermittent burning epigastric pain, which has been going on for quite some time. His INR finally got down to 1.8 today. OBJECTIVE: VITAL SIGNS: Heart rate 108, blood pressure 132/59, and 93% oxygen saturation on 2 L nasal cannula, and temperature is 97.8. GENERAL: Sitting up in bed comfortably, eating lunch. No acute distress. HEART: Regular, tachycardia. LUNGS: Clear to auscultation bilaterally. ABDOMEN: Soft, nontender to palpation. EXTREMITIES: No peripheral edema. LABORATORY STUDIES: INR 1.8 today. WBC 11.1, hemoglobin stable at 8.8, platelets 180. Sodium 139, potassium 3.3, BUN 68, and creatinine 1.72. ASSESSMENT AND PLAN: 1. Coffee-grounds emesis from nasogastric tube. 2. Coagulopathy with supratherapeutic INR, INR now down to 1.8. 3. Pneumosepsis, clinically improved. 4. Anemia, stable the past 3 days. We will go ahead and plan on diagnostic esophagogastroduodenoscopy tomorrow, particularly as findings might have an impact on decisions about anticoagulation going forward. Remain on PPI in the meantime. Dr. Perales is covering for GI over the long weekend. Job ID: [id number]
--- NOTE | 2019-10-03 12:44 | PDOC.HOSPP ---
- Subjective Encounter Date: 10/03/19 Encounter Time: 10:15 Subjective: pt up in bed no complains - Objective Vital Signs & Weight: Vital Signs (12 hours) Temp Pulse Resp BP Pulse Ox 10/03/19 10:26 86 19 93 L 10/03/19 09:07 90 10/03/19 09:06 93 150/61 H 10/03/19 08:00 93 L 10/03/19 07:00 97.8 F 10/03/19 06:27 83 22 H 92 L 10/03/19 05:00 97.4 F L 10/03/19 02:09 77 15 92 L Weight Admit Weight 193 lb 4.8 oz Weight 178 lb 5.663 oz Most Recent Monitor Data Heart Rate from ECG 108 NIBP 132/59 NIBP BP-Mean 83 Respiration from ECG 20 SpO2 93 I&O: 10/02/19 10/03/19 10/04/19 06:59 06:59 06:59 Intake Total 1466.4 3527.5 700 Output Total 1365 2860 250 Balance 101.4 667.5 450 Result Diagrams: 10/03/19 04:49 10/03/19 04:49 Hospitalist ROS - Review of Systems Cardiovascular: denies: chest pain, palpitations, orthopnea, paroxysmal noc. dyspnea, edema, light headedness, other Gastrointestinal: denies: nausea, vomiting, abdominal pain, diarrhea, constipation, melena, hematochezia, other - Medication Medications: Active Medications Generic Name Dose Route Start Last Admin Trade Name Freq PRN Reason Stop Dose Admin Albuterol/Ipratropium 3 ml 10/01/19 14:30 10/03/19 10:26 Duoneb NEB 3 ml [id number] JONATHAN Administration Buprenorphine/Naloxone 1 film 10/02/19 21:00 10/02/19 20:37 Suboxone SL 1 film HS JONATHAN Administration Digoxin 0.125 mg 10/03/19 09:00 10/03/19 09:07 Lanoxin PO 0.125 mg MWF JONATHAN Administration Diltiazem HCl 180 mg 10/03/19 09:00 10/03/19 09:12 Cardizem Cd PO Not Given DAILY JONATHAN Diltiazem HCl 120 mg 10/03/19 09:00 10/03/19 09:06 Cardizem Cd PO 120 mg DAILY JONATHAN Administration Ceftriaxone Sodium 2 gm/ 100 mls @ 200 mls/hr 10/01/19 07:45 10/03/19 09:05 Sodium Chloride IVPB 100 mls Q24HR JONATHAN Administration Sodium Chloride 1,000 mls @ 50 mls/hr 10/02/19 13:19 10/02/19 14:35 Normal Saline 0.9% IV Not Given .Q20H JONATHAN Ondansetron HCl 4 mg 10/03/19 05:09 10/03/19 05:16 Zofran SLOW IVP 4 mg Q6H PRN Administration Nausea Pantoprazole Sodium 40 mg 10/03/19 10:00 10/03/19 09:06 Protonix PO 40 mg 1000,2200 JONATHAN Administration Prednisone 20 mg 10/03/19 08:00 10/03/19 09:06 Prednisone PO 20 mg QAM-WM JONATHAN Administration Saccharomyces Boulardii 250 mg 09/30/19 09:00 10/03/19 09:06 Florastor PO 250 mg DAILY JONATHAN Administration Sterile Water 1 ml 09/29/19 18:15 10/01/19 18:31 Bacteriostatic Water FS 1 ml PRN PRN Administration RECONSTITUTION Tamsulosin HCl 0.4 mg 09/29/19 21:00 10/02/19 20:37 Flomax PO 0.4 mg QPM JONATHAN Administration - Exam Neck: negative: supple, symmetric, no JVD, no thyromegaly, no lymphadenopathy, no carotid bruit, JVD Heart: negative: RRR, no murmur, no gallops, no rubs, normal peripheral pulses, irregular, diminshed peripheral pulses, murmur present, II/IV, III/IV Respiratory: negative: CTAB, no wheezes, no rales, no ronchi, normal chest expansion, no tachypnea, normal percussion, rales, rhonchi, tachypneic, wheezes Hosp A/P (1) Acute on chronic respiratory failure with hypoxia and hypercapnia Code(s): J96.21 - ACUTE AND CHRONIC RESPIRATORY FAILURE WITH HYPOXIA; J96.22 - ACUTE AND CHRONIC RESPIRATORY FAILURE WITH HYPERCAPNIA Status: Acute (2) Atrial fibrillation with RVR Code(s): I48.91 - UNSPECIFIED ATRIAL FIBRILLATION Status: Acute (3) Community acquired bacterial pneumonia Code(s): J15.9 - UNSPECIFIED BACTERIAL PNEUMONIA Status: Acute (4) Elevated brain natriuretic peptide (BNP) level Code(s): R79.89 - OTHER SPECIFIED ABNORMAL FINDINGS OF BLOOD CHEMISTRY Status : Acute (5) Hypertension Code(s): I10 - ESSENTIAL (PRIMARY) HYPERTENSION Status: Chronic (6) Severe tricuspid regurgitation Code(s): I07.1 - RHEUMATIC TRICUSPID INSUFFICIENCY Status: Chronic - Plan will continue abx, pt awake and following commands. dark blood in his ng tube. will continue ppi and consult gi. will try to wean off levophed. pt's had Sever MR in his echo. 10/01 will continue abx for now, possible extubation in am. will continue Cardizem now and in am after extubation will put pt back on his oral meds. He is on meds for chronic pain. 10/02 pt extubated, doing well. will switch his meds to oral. continue abx. will monitor his creatinine if worsens will get nephro. 10/03 will continue abx for now. creatinine improving. pt on ppi will undergo egd.
[2019-10-03] MEDS: Sodium Chloride 0.9% 1,000 ML IV SCH (15:30)
[2019-10-03] MEDS: Warfarin Sodium 2 MG TAB PO SCH (16:29)
[2019-10-03] MEDS: Buprenorphine 8mg/Naloxone 2mg per 1 FILM SL SCH (20:04)
[2019-10-03] MEDS: Tamsulosin HCl 0.4 MG CAP PO SCH (20:06)
[2019-10-04] MEDS: Sodium Chloride 0.9% 1,000 ML IV SCH (02:39)
[2019-10-04 05:12] LABS: INR-International Normal Ratio 1.8; Prothrombin Time 21.1 SEC (12.0-14.7)
[2019-10-04 05:22] LABS: Anion Gap 11 mmol/L (10-20); BUN (Urea Nitrogen) 69 mg/dL (8.4-25.7); Calc. Creatinine Clearance 42 mL/min (70-130); Calcium 8.6 mg/dL (7.8-10.44); Carbon Dioxide 33 mmol/L (23-31); Chloride 100 mmol/L (98-107); Estimated GFR-MDRD 43; Glucose 141 mg/dL (83-110); Potassium 4.6 mmol/L (3.5-5.1); Sodium 139 mmol/L (136-145)
[2019-10-04 05:27] LABS: Band 9 % (5-11); Hemoglobin 8.4 g/dL (14.0-18.0); Lymphocytes 6 % (21-51); MDiff Complete? YES; Mean Corpuscular HGB CONC 31.1 g/dL (32.0-36.0); Mean Corpuscular Hemoglobin 29.3 pg (27.0-31.0); Mean Corpuscular Volume 94.2 fL (78.0-98.0); Mean Platelet Volume 8.1 fL (7.4-10.4); Monocytes 5 % (0-10); Myelocyte 2 % (0-0); Neutrophil 78 % (42-75); Platelet Count 190 thou/uL (130-400); RBC Distribution Width 13.2 % (11.5-14.5); Red Blood Cell (RBC) Count 2.87 mill/uL (4.70-6.10); White Blood Cell (WBC) Count 12.5 thou/uL (4.8-10.8)
--- NOTE | 2019-10-04 09:20 | PRG ---
DATE OF SERVICE: 10/04/2019 SUBJECTIVE: Mr. Verdugo has had no overt bleeding. His EGD today showed some mild nonerosive gastritis and linear ulcer in the distal esophagus consistent with reflux. He also had retained gastric contents. ASSESSMENT: 1. Chronic anemia dating back to 2013, normocytic normochromic, on chronic anticoagulation therapy. 2. Acute bleeding with presentation from the upper GI tract with blood return for NG tube when he was supratherapeutic on his INR. 3. Erosive esophagitis. 4. Retained gastric contents, possibly related to diabetes. RECOMMENDATIONS: 1. PPI therapy. 2. Advance diet to low residue. 3. The patient's anticoagulation is felt to be need to be restarted right away, then I would keep his INR on the low side. Otherwise, it is feasible to treat him with aspirin and a week to start the Coumadin. 4. At this time, we will sign off. If any further assistance needed in the patient's care, please do not hesitate to contact me. Otherwise, the patient has seen Dr. Santos and can follow up him in the outpatient setting if needed. Job ID: [id number]
[2019-10-04] MEDS: cefTRIAXone\\ROCEPHIN 2 GM in Sodium Chloride 0.9% 100 ML IVPB SCH (09:38)
[2019-10-04] MEDS: Torsemide 20 MG TAB PO SCH (09:39)
[2019-10-04] MEDS: Saccharomyces boulardii 250 MG CAP PO SCH (09:40)
[2019-10-04] MEDS: predniSONE 20 MG TAB PO SCH (09:40)
[2019-10-04] MEDS: Potassium Chloride 10 MEQ TAB PO SCH (09:40)
[2019-10-04] MEDS: Pantoprazole 40 MG GRANULES PACKET PO SCH ×2 (09:40→20:54)
[2019-10-04] MEDS ORDERED: PROPOFOL 200 MG/20 ML VIAL ONE (10:14)
[2019-10-04] MEDS ORDERED: PHENYLEPHRINE-NS 100 MCG/ML 10 ML SYRINGE ONE (10:14)
[2019-10-04] MEDS ORDERED: Benzocaine 20% Spray 60 ML CAN ONE (10:14)
[2019-10-04] MEDS ORDERED: Lidocaine 1% PF 5 ML VIAL ONE (10:14)
--- NOTE | 2019-10-04 12:17 | OP ---
DATE OF PROCEDURE: 10/04/2019 PROCEDURE PERFORMED: Esophagogastroduodenoscopy. PREPROCEDURE DIAGNOSES: 1. Coffee-ground emesis and anemia while intubated for severe pneumonia and congestive heart failure. 2. Supratherapeutic INR at that time. INR now down to 1.8 and hemoglobin stable at 8.4. POSTPROCEDURE DIAGNOSES: 1. Severe LA grade D erosive esophagitis with no stigmata of active bleeding. 2. Retained gastric contents, occluded complete visualization of stomach, but no overt bleeding site identified. Specifically, the cardia of the stomach is not well seen. 3. Normal duodenum. RECOMMENDATIONS: Daily PPI therapy. If he is going to be re-anticoagulated, I would keep his INR on the low side. If he bleeds, it will need to be stopped and reversed. DESCRIPTION OF PROCEDURE: After the patient was informed of the risks, benefits, and possible complications of endoscopy including perforation, bleeding, reaction to medication, and aspiration, informed consent was obtained. The patient was brought to the endoscopy suite, where he was sedated in a gradual fashion. Once he was comfortable, bite block was placed inside the orifice. The endoscope was advanced through the esophagus, stomach, and second and third portion of duodenum and slowly removed. The esophagus notable for a long linear ulcer white based in the distal esophagus. There was no stigmata of bleeding or Bonita-Mehta tear. The stomach was entered and found to be contaminated with some residual food material still. Retroflexed views revealed could not be completely cleared, although no overt blood, old blood, or bleeding sites were identified. This area could not be fully visualized. The antrum of the stomach was normal. There was a little bit of food there as well that could be washed away. There was mild erythema. Biopsies were not obtained. There were no ulcers, nodularity, or masses. The duodenal bulb was normal and the second portion and third portion of duodenum were normal. Scope was removed. The patient tolerated the procedure well. No complications. Job ID: [id number]
--- NOTE | 2019-10-04 16:26 | PRG ---
DATE OF SERVICE: 10/04/2019 SUBJECTIVE: Brent has no complaints today. He says he is feeling much better. He is afebrile. OBJECTIVE: VITAL SIGNS: Heart rate is 90, respiratory rate 16, oximetry is 94% to 98% on 3 L, blood pressure is 124/77. LUNGS: Distant, clear. HEART: Regular rhythm. ABDOMEN: Soft. EXTREMITIES: Without edema. IMPRESSION: 1. Pneumonia. 2. Aortic stenosis. 3. Clinical sepsis. 4. Prerenal azotemia. 5. Supraventricular tachycardia. 6. Erosive esophagitis by EGD. 7. Anticoagulation that was supratherapeutic when he was having his gastrointestinal bleed. PLAN: We will continue to follow with him in the hospital. He appears to be stabilizing. The pneumococcus isolated from his blood is ureña sensitive. He is afebrile. He could be converted to p.o. antimicrobial therapy. Job ID: [id number]
[2019-10-04] MEDS: Warfarin Sodium 2 MG TAB PO SCH (16:35)
--- NOTE | 2019-10-04 17:37 | PDOC.HOSPP ---
- Subjective Encounter Date: 10/04/19 Encounter Time: 11:15 Subjective: pt up in bed no complains - Objective Vital Signs & Weight: Vital Signs (12 hours) Temp Pulse Resp BP Pulse Ox 10/04/19 16:00 97.5 F L 86 20 142/110 H 97 10/04/19 15:15 90 16 94 L 10/04/19 11:55 97.2 F L 90 18 124/77 98 10/04/19 09:59 94 14 97 10/04/19 09:40 87 10/04/19 08:00 94 L 10/04/19 07:23 97.5 F L 87 18 159/71 H 95 10/04/19 06:34 81 18 97 Weight Admit Weight 193 lb 4.8 oz Weight 208 lb Most Recent Monitor Data Heart Rate from ECG 103 NIBP 144/94 NIBP BP-Mean 110 Respiration from ECG 25 SpO2 94 I&O: 10/03/19 10/04/19 10/05/19 06:59 06:59 06:59 Intake Total 3527.5 2442 Output Total 2860 1400 Balance 667.5 1042 Result Diagrams: 10/04/19 04:43 10/04/19 04:43 Hospitalist ROS - Review of Systems Cardiovascular: denies: chest pain, palpitations, orthopnea, paroxysmal noc. dyspnea, edema, light headedness, other Gastrointestinal: denies: nausea, vomiting, abdominal pain, diarrhea, constipation, melena, hematochezia, other Genitourinary: denies: dysuria, frequency, incontinence, hematuria, retention, other - Medication Medications: Active Medications Generic Name Dose Route Start Last Admin Trade Name Ogq PRN Reason Stop Dose Admin Albuterol/Ipratropium 3 ml 10/01/19 14:30 10/04/19 15:15 Duoneb NEB 3 ml [id number] JONATHAN Administration Buprenorphine/Naloxone 1 film 10/02/19 21:00 10/03/19 20:04 Suboxone SL 1 film HS JONATHAN Administration Digoxin 0.125 mg 10/03/19 09:00 10/03/19 09:07 Lanoxin PO 0.125 mg MWF JONATHAN Administration Diltiazem HCl 120 mg 10/03/19 09:00 10/04/19 09:40 Cardizem Cd PO 120 mg DAILY JONATHAN Administration Ceftriaxone Sodium 2 gm/ 100 mls @ 200 mls/hr 10/01/19 07:45 10/04/19 09:38 Sodium Chloride IVPB 100 mls Q24HR JONATHAN Administration Ondansetron HCl 4 mg 10/03/19 05:09 10/03/19 05:16 Zofran SLOW IVP 4 mg Q6H PRN Administration Nausea Pantoprazole Sodium 40 mg 10/03/19 10:00 10/04/19 09:40 Protonix PO 40 mg 1000,2200 JONATHAN Administration Potassium Chloride 20 meq 10/04/19 08:00 10/04/19 09:40 Klor-Con 10 PO 20 meq 0800 JONATHAN Administration Prednisone 20 mg 10/03/19 08:00 10/04/19 09:40 Prednisone PO 20 mg QAM-WM JONATHAN Administration Saccharomyces Boulardii 250 mg 09/30/19 09:00 10/04/19 09:40 Florastor PO 250 mg DAILY JONATHAN Administration Senna/Docusate Sodium 2 tab 09/29/19 18:08 10/04/19 16:35 Senokot S PO 2 tab BIDPRN PRN Administration Constipation Sterile Water 1 ml 09/29/19 18:15 10/01/19 18:31 Bacteriostatic Water FS 1 ml PRN PRN Administration RECONSTITUTION Tamsulosin HCl 0.4 mg 09/29/19 21:00 10/03/19 20:06 Flomax PO 0.4 mg QPM JONATHAN Administration Torsemide 20 mg 10/04/19 09:00 10/04/19 09:39 Demadex PO 20 mg DAILY JONATHAN Administration Warfarin Sodium 2 mg 10/03/19 17:00 10/04/19 16:35 Coumadin PO 2 mg 1700 JONATHAN Administration - Exam Neck: negative: supple, symmetric, no JVD, no thyromegaly, no lymphadenopathy, no carotid bruit, JVD Heart: negative: RRR, no murmur, no gallops, no rubs, normal peripheral pulses, irregular, diminshed peripheral pulses, murmur present, II/IV, III/IV Respiratory: negative: CTAB, no wheezes, no rales, no ronchi, normal chest expansion, no tachypnea, normal percussion, rales, rhonchi, tachypneic, wheezes Hosp A/P (1) Acute on chronic respiratory failure with hypoxia and hypercapnia Code(s): J96.21 - ACUTE AND CHRONIC RESPIRATORY FAILURE WITH HYPOXIA; J96.22 - ACUTE AND CHRONIC RESPIRATORY FAILURE WITH HYPERCAPNIA Status: Acute (2) Atrial fibrillation with RVR Code(s): I48.91 - UNSPECIFIED ATRIAL FIBRILLATION Status: Acute (3) Community acquired bacterial pneumonia Code(s): J15.9 - UNSPECIFIED BACTERIAL PNEUMONIA Status: Acute (4) Elevated brain natriuretic peptide (BNP) level Code(s): R79.89 - OTHER SPECIFIED ABNORMAL FINDINGS OF BLOOD CHEMISTRY Status : Acute (5) Hypertension Code(s): I10 - ESSENTIAL (PRIMARY) HYPERTENSION Status: Chronic (6) Severe tricuspid regurgitation Code(s): I07.1 - RHEUMATIC TRICUSPID INSUFFICIENCY Status: Chronic - Plan will continue abx, pt awake and following commands. dark blood in his ng tube. will continue ppi and consult gi. will try to wean off levophed. pt's had Sever MR in his echo. 10/01 will continue abx for now, possible extubation in am. will continue Cardizem now and in am after extubation will put pt back on his oral meds. He is on meds for chronic pain. 10/02 pt extubated, doing well. will switch his meds to oral. continue abx. will monitor his creatinine if worsens will get nephro. 10/03 will continue abx for now. creatinine improving. pt on ppi will undergo egd. 10/04 pt's egd indicated grade erosive esophagitis will continue ppi and continue Coumadin.
[2019-10-04] MEDS: Tamsulosin HCl 0.4 MG CAP PO SCH (20:54)
[2019-10-04] MEDS: Buprenorphine 8mg/Naloxone 2mg per 1 FILM SL SCH (21:14)
[2019-10-05 05:49] LABS: Anion Gap 11 mmol/L (10-20); BUN (Urea Nitrogen) 65 mg/dL (8.4-25.7); Calc. Creatinine Clearance 48 mL/min (70-130); Calcium 8.5 mg/dL (7.8-10.44); Carbon Dioxide 33 mmol/L (23-31); Chloride 99 mmol/L (98-107); Estimated GFR-MDRD 43; Glucose 100 mg/dL (83-110); Hemoglobin 8.4 g/dL (14.0-18.0); Hypochromia SLIGHT = 6-15 cells (100X) (0-5/hpf); Lymphocytes 2 % (21-51); MDiff Complete? YES; Mean Corpuscular HGB CONC 31.3 g/dL (32.0-36.0); Mean Corpuscular Hemoglobin 29.4 pg (27.0-31.0); Mean Corpuscular Volume 93.9 fL (78.0-98.0); Mean Platelet Volume 8.5 fL (7.4-10.4); Monocytes 4 % (0-10); Neutrophil 94 % (42-75); Platelet Count 191 thou/uL (130-400); Platelet Morphology Comment Appears Adequate; Potassium 4.7 mmol/L (3.5-5.1); RBC Distribution Width 13.3 % (11.5-14.5); Red Blood Cell (RBC) Count 2.85 mill/uL (4.70-6.10); Sodium 138 mmol/L (136-145); White Blood Cell (WBC) Count 13.5 thou/uL (4.8-10.8)
[2019-10-05] MEDS: predniSONE 20 MG TAB PO SCH (07:41)
[2019-10-05] MEDS: cefTRIAXone\\ROCEPHIN 2 GM in Sodium Chloride 0.9% 100 ML IVPB SCH (07:41)
[2019-10-05] MEDS: Potassium Chloride 10 MEQ TAB PO SCH (07:41)
[2019-10-05] MEDS ORDERED: Sodium Chloride 0.9% 10 ML ONE (08:02)
[2019-10-05] MEDS: Saccharomyces boulardii 250 MG CAP PO SCH (08:41)
[2019-10-05] MEDS: Digoxin 0.125 MG TAB PO SCH (08:41)
[2019-10-05] MEDS: Torsemide 20 MG TAB PO SCH (08:41)
[2019-10-05] MEDS: Pantoprazole 40 MG GRANULES PACKET PO SCH ×2 (09:06→20:41)
--- NOTE | 2019-10-05 13:59 | PDOC.HOSPP ---
- Subjective Encounter Date: 10/05/19 Encounter Time: 08:35 Subjective: +diarrhea.. - Objective Vital Signs & Weight: Vital Signs (12 hours) Temp Pulse Resp BP BP Pulse Ox 10/05/19 12:00 97.8 F 98 20 142/72 H 100 10/05/19 11:18 100 20 94 L 10/05/19 07:37 97.5 F L 97 20 121/59 L 96 10/05/19 07:08 91 18 95 10/05/19 04:15 97.6 F 95 20 133/72 96 Weight Admit Weight 193 lb 4.8 oz Weight 209 lb 8 oz Most Recent Monitor Data Heart Rate from ECG 103 NIBP 144/94 NIBP BP-Mean 110 Respiration from ECG 25 SpO2 94 I&O: 10/04/19 10/05/19 10/06/19 06:59 06:59 06:59 Intake Total 2442 1754 Output Total 1400 2000 Balance 1042 -246 Result Diagrams: 10/05/19 05:13 10/05/19 05:13 Hospitalist ROS - Medication Medications: Active Medications Generic Name Dose Route Start Last Admin Trade Name Freq PRN Reason Stop Dose Admin Albuterol/Ipratropium 3 ml 10/01/19 14:30 10/05/19 11:18 Duoneb NEB 3 ml [id number] JONATHAN Administration Buprenorphine/Naloxone 1 film 10/02/19 21:00 10/04/19 21:14 Suboxone SL 1 film HS JONATHAN Administration Digoxin 0.125 mg 10/03/19 09:00 10/05/19 08:41 Lanoxin PO 0.125 mg MWF JONATHAN Administration Diltiazem HCl 120 mg 10/03/19 09:00 10/05/19 08:41 Cardizem Cd PO 120 mg DAILY JONATHAN Administration Ceftriaxone Sodium 2 gm/ 100 mls @ 200 mls/hr 10/01/19 07:45 10/05/19 07:41 Sodium Chloride IVPB 100 mls Q24HR JONATHAN Administration Ondansetron HCl 4 mg 10/03/19 05:09 10/03/19 05:16 Zofran SLOW IVP 4 mg Q6H PRN Administration Nausea Pantoprazole Sodium 40 mg 10/03/19 10:00 10/05/19 09:06 Protonix PO 40 mg 1000,2200 JONATHAN Administration Potassium Chloride 20 meq 10/04/19 08:00 10/05/19 07:41 Klor-Con 10 PO 20 meq 0800 JONATHAN Administration Prednisone 20 mg 10/03/19 08:00 10/05/19 07:41 Prednisone PO 20 mg QAM-WM JONATHAN Administration Saccharomyces Boulardii 250 mg 09/30/19 09:00 10/05/19 08:41 Florastor PO 250 mg DAILY JONATHAN Administration Senna/Docusate Sodium 2 tab 09/29/19 18:08 10/04/19 16:35 Senokot S PO 2 tab BIDPRN PRN Administration Constipation Sterile Water 1 ml 09/29/19 18:15 10/01/19 18:31 Bacteriostatic Water FS 1 ml PRN PRN Administration RECONSTITUTION Tamsulosin HCl 0.4 mg 09/29/19 21:00 10/04/19 20:54 Flomax PO 0.4 mg QPM JONATHAN Administration Torsemide 20 mg 10/04/19 09:00 10/05/19 08:41 Demadex PO 20 mg DAILY JONATHAN Administration Warfarin Sodium 2 mg 10/03/19 17:00 10/04/19 16:35 Coumadin PO 2 mg 1700 JONATHAN Administration - Exam General Appearance: NAD Neck: no JVD Heart: irregular Respiratory: CTAB Gastrointestinal: soft Extremities: 1+ LE edema Neurological: no weakness Psychiatric: normal affect Hosp A/P (1) Acute on chronic respiratory failure with hypoxia and hypercapnia Code(s): J96.21 - ACUTE AND CHRONIC RESPIRATORY FAILURE WITH HYPOXIA; J96.22 - ACUTE AND CHRONIC RESPIRATORY FAILURE WITH HYPERCAPNIA Status: Acute (2) Atrial fibrillation with RVR Code(s): I48.91 - UNSPECIFIED ATRIAL FIBRILLATION Status: Acute (3) COPD exacerbation Code(s): J44.1 - CHRONIC OBSTRUCTIVE PULMONARY DISEASE W (ACUTE) EXACERBATION Status: Acute (4) Community acquired bacterial pneumonia Code(s): J15.9 - UNSPECIFIED BACTERIAL PNEUMONIA Status: Acute (5) Elevated brain natriuretic peptide (BNP) level Code(s): R79.89 - OTHER SPECIFIED ABNORMAL FINDINGS OF BLOOD CHEMISTRY Status : Acute (6) Hypertension Code(s): I10 - ESSENTIAL (PRIMARY) HYPERTENSION Status: Chronic (7) Severe tricuspid regurgitation Code(s): I07.1 - RHEUMATIC TRICUSPID INSUFFICIENCY Status: Chronic - Plan Continue current management... Diarrhea due to laxatives..Check stools C.diff if not improved.f/u with consultants
--- NOTE | 2019-10-05 14:33 | PRG ---
DATE OF SERVICE: 10/05/2019 SUBJECTIVE: Slowly, the patient is improving. He had no acute complaints today. OBJECTIVE: VITAL SIGNS: Temperature 97.8, pulse 98, respirations 20, O2 saturation 100% on 3 L, and blood pressure 142/72. HEENT: Unremarkable. NECK: No adenopathy, JVD, or bruits. LUNGS: Clear anteriorly. CARDIAC: S1 and S2, regular. ABDOMEN: Soft. EXTREMITIES: No edema. ASSESSMENT: 1. Chronic obstructive pulmonary disease with exacerbation. 2. Tobacco abuse. 3. Pneumonia from pneumococcus. PLAN: 1. Continue ceftriaxone. Convert to oral antibiotics when able to tolerate therapy. 2. Increase activity as tolerated. 3. Continue prednisone. Job ID: [id number]
[2019-10-05] MEDS: Warfarin Sodium 2 MG TAB PO SCH (16:15)
[2019-10-05] MEDS: Tamsulosin HCl 0.4 MG CAP PO SCH (20:38)
[2019-10-05] MEDS: Buprenorphine 8mg/Naloxone 2mg per 1 FILM SL SCH (20:38)
[2019-10-06 06:30] LABS: INR-International Normal Ratio 2.1; Prothrombin Time 23.1 SEC (12.0-14.7)
[2019-10-06 06:34] LABS: Eosinophils 2 % (0-10); Hemoglobin 9.1 g/dL (14.0-18.0); Lymphocytes 8 % (21-51); MDiff Complete? YES; Mean Corpuscular HGB CONC 31.1 g/dL (32.0-36.0); Mean Corpuscular Hemoglobin 28.8 pg (27.0-31.0); Mean Corpuscular Volume 92.8 fL (78.0-98.0); Mean Platelet Volume 8.2 fL (7.4-10.4); Monocytes 17 % (0-10); Neutrophil 73 % (42-75); Platelet Count 249 thou/uL (130-400); Platelet Morphology Comment Appears Adequate; RBC Distribution Width 13.2 % (11.5-14.5); Red Blood Cell (RBC) Count 3.17 mill/uL (4.70-6.10); White Blood Cell (WBC) Count 12.9 thou/uL (4.8-10.8)
[2019-10-06 06:45] LABS: BUN (Urea Nitrogen) 54 mg/dL (8.4-25.7); Calc. Creatinine Clearance 59 mL/min (70-130); Calcium 8.7 mg/dL (7.8-10.44); Estimated GFR-MDRD 54; Glucose 122 mg/dL (83-110)
[2019-10-06 06:55] LABS: Anion Gap 9 mmol/L (10-20); Carbon Dioxide 40 mmol/L (23-31); Chloride 96 mmol/L (98-107); Potassium 4.4 mmol/L (3.5-5.1); Sodium 141 mmol/L (136-145)
[2019-10-06] MEDS: cefTRIAXone\\ROCEPHIN 2 GM in Sodium Chloride 0.9% 100 ML IVPB SCH (08:30)
[2019-10-06] MEDS: Potassium Chloride 10 MEQ TAB PO SCH (08:32)
[2019-10-06] MEDS: Torsemide 20 MG TAB PO SCH (08:32)
[2019-10-06] MEDS: Saccharomyces boulardii 250 MG CAP PO SCH (08:32)
[2019-10-06] MEDS: predniSONE 20 MG TAB PO SCH (08:33)
[2019-10-06] MEDS: Pantoprazole 40 MG GRANULES PACKET PO SCH ×2 (11:31→20:48)
--- NOTE | 2019-10-06 13:14 | PRG ---
DATE OF SERVICE: 10/06/2019 SUBJECTIVE: Overall, he feels better. He is having some issues with diarrhea. He is currently isolated to workup possible C difficile colitis. OBJECTIVE: VITAL SIGNS: Temperature is 96.0, pulse 80, respirations 18, O2 saturation 94% on 3 L, blood pressure 131/96. HEENT: Unremarkable. NECK: No adenopathy or JVD. CHEST: Clear to auscultation. CARDIAC: S1, S2. Regular. ABDOMEN: Mild midepigastric tenderness. EXTREMITIES: No edema. LABORATORY DATA: White blood cell count 12.9, hematocrit 29.4, and platelet count 249. INR is 2.1. Sodium 141, potassium 4.4, chloride 96, CO2 40, BUN 54, creatinine 1.3, glucose 122. ASSESSMENT: 1. Streptococcal pneumonia, sepsis. 2. Chronic obstructive pulmonary disease. 3. Diarrhea. PLAN: Patient is continuing treatment with antibiotics, nebulization treatments, and steroids. Overall, his prognosis is fair. Job ID: [id number]
--- NOTE | 2019-10-06 13:46 | PDOC.HOSPP ---
- Subjective Encounter Date: 10/06/19 Encounter Time: 11:45 Subjective: +Diarrhea. - Objective Vital Signs & Weight: Vital Signs (12 hours) Temp Pulse Resp BP BP BP Pulse Ox 10/06/19 11:57 80 18 94 L 10/06/19 11:29 96 F L 116 H 20 131/96 H 94 L 10/06/19 08:33 109 H 163/84 H 10/06/19 08:15 96.4 F L 109 H 20 163/84 H 93 L 10/06/19 07:36 106 H 20 97 10/06/19 04:30 97.4 F L 100 20 148/68 H 94 L 10/06/19 02:36 84 18 96 Weight Admit Weight 193 lb 4.8 oz Weight 209 lb 8 oz Most Recent Monitor Data Heart Rate from ECG 103 NIBP 144/94 NIBP BP-Mean 110 Respiration from ECG 25 SpO2 94 I&O: 10/05/19 10/06/19 10/07/19 06:59 06:59 06:59 Intake Total 1734 1550 250 Output Total 1999 7838 Balance -246 -275 250 Result Diagrams: 10/06/19 06:11 10/06/19 06:11 Hospitalist ROS - Medication Medications: Active Medications Generic Name Dose Route Start Last Admin Trade Name Freq PRN Reason Stop Dose Admin Albuterol/Ipratropium 3 ml 10/01/19 14:30 10/06/19 11:57 Duoneb NEB 3 ml [id number] JONATHAN Administration Buprenorphine/Naloxone 1 film 10/02/19 21:00 10/05/19 20:38 Suboxone SL 1 film HS JONATHAN Administration Digoxin 0.125 mg 10/03/19 09:00 10/05/19 08:41 Lanoxin PO 0.125 mg MWF JONATHAN Administration Diltiazem HCl 120 mg 10/03/19 09:00 10/06/19 08:33 Cardizem Cd PO 120 mg DAILY JONATHAN Administration Ceftriaxone Sodium 2 gm/ 100 mls @ 200 mls/hr 10/01/19 07:45 10/06/19 08:30 Sodium Chloride IVPB 100 mls Q24HR JONATHAN Administration Ondansetron HCl 4 mg 10/03/19 05:09 10/03/19 05:16 Zofran SLOW IVP 4 mg Q6H PRN Administration Nausea Pantoprazole Sodium 40 mg 10/03/19 10:00 10/05/19 20:41 Protonix PO 40 mg 1000,2200 JONATHAN Administration Potassium Chloride 20 meq 10/04/19 08:00 10/06/19 08:32 Klor-Con 10 PO 20 meq 0800 JONATHAN Administration Prednisone 20 mg 10/03/19 08:00 10/06/19 08:33 Prednisone PO 20 mg QAM-WM JONATHAN Administration Saccharomyces Boulardii 250 mg 09/30/19 09:00 10/06/19 08:32 Florastor PO 250 mg DAILY JONATHAN Administration Senna/Docusate Sodium 2 tab 09/29/19 18:08 10/04/19 16:35 Senokot S PO 2 tab BIDPRN PRN Administration Constipation Sterile Water 1 ml 09/29/19 18:15 10/01/19 18:31 Bacteriostatic Water FS 1 ml PRN PRN Administration RECONSTITUTION Tamsulosin HCl 0.4 mg 09/29/19 21:00 10/05/19 20:38 Flomax PO 0.4 mg QPM JONATHAN Administration Torsemide 20 mg 10/04/19 09:00 10/06/19 08:32 Demadex PO 20 mg DAILY JONATHAN Administration Warfarin Sodium 2 mg 10/03/19 17:00 10/05/19 16:15 Coumadin PO 2 mg 1700 JONATHAN Administration - Exam Neck: no JVD Heart: irregular Respiratory: CTAB Gastrointestinal: soft Extremities: 1+ LE edema Neurological: no weakness Psychiatric: normal affect Hosp A/P (1) Acute on chronic respiratory failure with hypoxia and hypercapnia Code(s): J96.21 - ACUTE AND CHRONIC RESPIRATORY FAILURE WITH HYPOXIA; J96.22 - ACUTE AND CHRONIC RESPIRATORY FAILURE WITH HYPERCAPNIA Status: Acute (2) Atrial fibrillation with RVR Code(s): I48.91 - UNSPECIFIED ATRIAL FIBRILLATION Status: Acute (3) COPD exacerbation Code(s): J44.1 - CHRONIC OBSTRUCTIVE PULMONARY DISEASE W (ACUTE) EXACERBATION Status: Acute (4) Community acquired bacterial pneumonia Code(s): J15.9 - UNSPECIFIED BACTERIAL PNEUMONIA Status: Acute (5) Elevated brain natriuretic peptide (BNP) level Code(s): R79.89 - OTHER SPECIFIED ABNORMAL FINDINGS OF BLOOD CHEMISTRY Status : Acute (6) Hypertension Code(s): I10 - ESSENTIAL (PRIMARY) HYPERTENSION Status: Chronic (7) Severe tricuspid regurgitation Code(s): I07.1 - RHEUMATIC TRICUSPID INSUFFICIENCY Status: Chronic - Plan Continue current management... Diarrhea due to laxatives.. f/u stools for c.diff. f/u with consultants
[2019-10-06 14:00] VITALS: BMI 27.6
--- NOTE | 2019-10-06 16:17 | PDOC.CPN ---
- Subjective Date: 10/06/19 Time: 16:17 Interval history: No new issues. - Review of Systems General: denies: fever/chills, weight/appetite/sleep changes, night sweats, fatigue Respiratory: denies: cough, congestion, shortness of breath, exercise intolerance Cardiovascular: denies: chest pain, palpitation, edema, paroxysmal nocturnal dyspnea, orthopnea Gastrointestinal: denies: nausea, vomiting, diarrhea, constipation, abd pain, GI bleeding Musculoskeletal: denies: pain, tenderness, stiffness, swelling, arthritis/ arthralgias Neurological: denies: numbness, syncope, seizure, weakness - Objective Allergies/Adverse Reactions: Allergies Allergy/AdvReac Type Severity Reaction Status Date / Time No Known Drug Allergies Allergy Verified 07/30/14 22:17 Visit Medications: Current Medications Acetaminophen (Tylenol) 650 mg PO Q4H PRN PRN Reason: Headache/Fever/Mild Pain (1-3) Albuterol/Ipratropium (Duoneb) 3 ml NEB [id number] [facility] Last Admin: 10/06/19 15:30 Dose: 3 ml Lipase/Protease/Amylase ([place] [id number]) 1 cap FS .PER PROTOCOL PRN PRN Reason: TUBE OCCLUSION PROTOCOL Buprenorphine/Naloxone (Suboxone) 1 film SL HS [facility] Last Admin: 10/05/19 20:38 Dose: 1 film Digoxin (Lanoxin) 0.125 mg PO MWF [facility] Last Admin: 10/05/19 08:41 Dose: 0.125 mg Diltiazem HCl (Cardizem Cd) 120 mg PO DAILY [facility] Last Admin: 10/06/19 08:33 Dose: 120 mg Ceftriaxone Sodium 2 gm/ (Sodium Chloride) 100 mls @ 200 mls/hr IVPB Q24HR [facility] Last Admin: 10/06/19 08:30 Dose: 100 mls Miscellaneous Medication (Pharmacy To Dose) 1 each PO PRN PRN PRN Reason: Pharmacy to dose Ondansetron HCl (Zofran) 4 mg SLOW IVP Q6H PRN PRN Reason: Nausea Last Admin: 10/03/19 05:16 Dose: 4 mg Pantoprazole Sodium (Protonix) 40 mg PO 1000,2200 [facility] Last Admin: 10/05/19 20:41 Dose: 40 mg Potassium Chloride (Klor-Con 10) 20 meq PO 0800 [facility] Last Admin: 10/06/19 08:32 Dose: 20 meq Prednisone (Prednisone) 20 mg PO QAM-WM [facility] Last Admin: 10/06/19 08:33 Dose: 20 mg Saccharomyces Boulardii (Florastor) 250 mg PO DAILY [facility] Last Admin: 10/06/19 08:32 Dose: 250 mg Senna/Docusate Sodium (Senokot S) 2 tab PO BIDPRN PRN PRN Reason: Constipation Last Admin: 10/04/19 16:35 Dose: 2 tab Sodium Bicarbonate (Bicarbonate, Sodium) 650 mg PER TUBE .PER PROTOCOL PRN PRN Reason: ENTERAL TUBE OCCLUSION Sodium Chloride (Normal Saline Pf) 10 ml FS PRN PRN PRN Reason: RECONSTITUTION Sterile Water (Bacteriostatic Water) 1 ml FS PRN PRN PRN Reason: RECONSTITUTION Last Admin: 10/01/19 18:31 Dose: 1 ml Tamsulosin HCl (Flomax) 0.4 mg PO QPM [facility] Last Admin: 10/05/19 20:38 Dose: 0.4 mg Torsemide (Demadex) 20 mg PO DAILY [facility] Last Admin: 10/06/19 08:32 Dose: 20 mg Warfarin Sodium (Coumadin) 2 mg PO 1700 [facility] Last Admin: 10/05/19 16:15 Dose: 2 mg Vital Signs & Weight: Vital Signs Temp Pulse Resp BP BP BP Pulse Ox 10/06/19 15:30 90 20 94 L 10/06/19 11:57 80 18 94 L 10/06/19 11:29 96 F L 116 H 20 131/96 H 94 L 10/06/19 08:33 109 H 163/84 H 10/06/19 08:15 96.4 F L 109 H 20 163/84 H 93 L 10/06/19 07:36 106 H 20 97 10/06/19 04:30 97.4 F L 100 20 148/68 H 94 L Admit Weight 193 lb 4.8 oz Weight 209 lb 8 oz - Physical Exam General: alert & oriented x3 HEENT: mucus membranes moist Neck: supple neck Cardiac: irregularly regular, systolic murmur Lungs: normal breath sounds Neuro: grossly intact Abdomen: active bowel sounds Extremities: no edema Skin: clear Musculoskeletal: no pain - Labs Result Diagrams: 10/06/19 06:11 10/06/19 06:11 Troponin/CKMB CK-MB (CK-2) 2.2 ng/mL (0-6.6) 09/30/19 01:18 Troponin I 0.053 ng/mL (< 0.028) H 09/30/19 01:18 - Telemetry Supraventricular conduction: atrial fibrillation - Assessment/Plan Assessment/Plan: 1. Chronic afib 2. 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 COPD 4. Pneumonia PLAN: - Continue rate control. - Continue Dig and Cardizem - Warfarin for stroke prophylaxis.
[2019-10-06] MEDS: Warfarin Sodium 2 MG TAB PO SCH (16:34)
[2019-10-06] MEDS: Buprenorphine 8mg/Naloxone 2mg per 1 FILM SL SCH (20:47)
[2019-10-06] MEDS: Tamsulosin HCl 0.4 MG CAP PO SCH (20:48)
[2019-10-07 04:53] LABS: Anion Gap 11 mmol/L (10-20); BUN (Urea Nitrogen) 43 mg/dL (8.4-25.7); Calc. Creatinine Clearance 70 mL/min (70-130); Calcium 8.7 mg/dL (7.8-10.44); Carbon Dioxide 35 mmol/L (23-31); Chloride 95 mmol/L (98-107); Estimated GFR-MDRD 65; Glucose 150 mg/dL (83-110); Potassium 4.8 mmol/L (3.5-5.1); Sodium 136 mmol/L (136-145)
[2019-10-07 06:33] LABS: Prothrombin Time 22.5 SEC (12.0-14.7)
[2019-10-07 06:47] LABS: Hemoglobin 9.7 g/dL (14.0-18.0); Hypochromia SLIGHT = 6-15 cells (100X) (0-5/hpf); Lymphocytes 9 % (21-51); MDiff Complete? YES; Mean Corpuscular HGB CONC 31.8 g/dL (32.0-36.0); Mean Corpuscular Hemoglobin 29.6 pg (27.0-31.0); Mean Platelet Volume 8.5 fL (7.4-10.4); Monocytes 9 % (0-10); Neutrophil 82 % (42-75); Platelet Count 257 thou/uL (130-400); Platelet Morphology Comment Appears Adequate; RBC Distribution Width 13.5 % (11.5-14.5); Red Blood Cell (RBC) Count 3.29 mill/uL (4.70-6.10); White Blood Cell (WBC) Count 17.8 thou/uL (4.8-10.8)
[2019-10-07] MEDS: cefTRIAXone\\ROCEPHIN 2 GM in Sodium Chloride 0.9% 100 ML IVPB SCH (07:55)
[2019-10-07] MEDS: Potassium Chloride 10 MEQ TAB PO SCH (07:56)
[2019-10-07] MEDS: predniSONE 20 MG TAB PO SCH (07:56)
[2019-10-07] MEDS: Saccharomyces boulardii 250 MG CAP PO SCH (07:56)
[2019-10-07] MEDS: Torsemide 20 MG TAB PO SCH (07:56)
--- NOTE | 2019-10-07 09:50 | PDOC.HOSPP ---
- Subjective Encounter Date: 10/07/19 Encounter Time: 09:49 Subjective: diarrhea resolved, still sob - Objective Vital Signs & Weight: Vital Signs (12 hours) Temp Pulse Resp BP BP Pulse Ox 10/07/19 08:18 99 20 95 10/07/19 08:00 137/82 10/07/19 07:57 96.6 F L 115 H 20 167/103 H 95 10/07/19 03:04 97.0 F L 109 H 18 145/68 H 94 L 10/07/19 02:37 103 H 18 96 10/06/19 23:29 97.5 F L 103 H 20 168/71 H 94 L 10/06/19 23:00 105 H 20 95 Weight Admit Weight 193 lb 4.8 oz Weight 209 lb 8 oz Most Recent Monitor Data Heart Rate from ECG 103 NIBP 144/94 NIBP BP-Mean 110 Respiration from ECG 25 SpO2 94 I&O: 10/06/19 10/07/19 10/08/19 06:59 06:59 06:59 Intake Total 1550 1835 Output Total 1825 2600 200 Balance -275 -765 -200 Result Diagrams: 10/07/19 06:25 10/07/19 04:16 Radiology Reviewed by me: Yes (cxr- infiltrates persist, basically unchanged) Hospitalist ROS - Medication Medications: Active Medications Generic Name Dose Route Start Last Admin Trade Name Freq PRN Reason Stop Dose Admin Albuterol/Ipratropium 3 ml 10/01/19 14:30 10/07/19 08:18 Duoneb NEB 3 ml [id number] JONATHAN Administration Buprenorphine/Naloxone 1 film 10/02/19 21:00 10/06/19 20:47 Suboxone SL 1 film HS JONATHAN Administration Digoxin 0.125 mg 10/03/19 09:00 10/05/19 08:41 Lanoxin PO 0.125 mg MWF JONATHAN Administration Diltiazem HCl 120 mg 10/03/19 09:00 10/07/19 07:56 Cardizem Cd PO 120 mg DAILY JONATHAN Administration Ceftriaxone Sodium 2 gm/ 100 mls @ 200 mls/hr 10/01/19 07:45 10/07/19 07:55 Sodium Chloride IVPB 100 mls Q24HR JONATHAN Administration Ondansetron HCl 4 mg 10/03/19 05:09 10/03/19 05:16 Zofran SLOW IVP 4 mg Q6H PRN Administration Nausea Potassium Chloride 20 meq 10/04/19 08:00 10/07/19 07:56 Klor-Con 10 PO 20 meq 0800 JONATHAN Administration Prednisone 20 mg 10/03/19 08:00 10/07/19 07:56 Prednisone PO 20 mg QAM-WM JONATHAN Administration Saccharomyces Boulardii 250 mg 09/30/19 09:00 10/07/19 07:56 Florastor PO 250 mg DAILY JONATHAN Administration Senna/Docusate Sodium 2 tab 09/29/19 18:08 10/04/19 16:35 Senokot S PO 2 tab BIDPRN PRN Administration Constipation Sterile Water 1 ml 09/29/19 18:15 10/01/19 18:31 Bacteriostatic Water FS 1 ml PRN PRN Administration RECONSTITUTION Tamsulosin HCl 0.4 mg 09/29/19 21:00 10/06/19 20:48 Flomax PO 0.4 mg QPM JONATHAN Administration Torsemide 20 mg 10/04/19 09:00 10/07/19 07:56 Demadex PO 20 mg DAILY JONATHAN Administration Warfarin Sodium 2 mg 10/03/19 17:00 10/06/19 16:34 Coumadin PO 2 mg 1700 JONATHAN Administration - Exam General Appearance: awake alert Neck: no JVD Heart: no murmur, irregular Respiratory - other findings: bilat wheezes, rales Gastrointestinal: soft, normal bowel sounds Extremities: no edema Hosp A/P (1) Bacteremia due to Gram-positive bacteria Code(s): R78.81 - BACTEREMIA Status: Acute (2) Acute on chronic respiratory failure with hypoxia and hypercapnia Code(s): J96.21 - ACUTE AND CHRONIC RESPIRATORY FAILURE WITH HYPOXIA; J96.22 - ACUTE AND CHRONIC RESPIRATORY FAILURE WITH HYPERCAPNIA Status: Acute (3) Atrial fibrillation with RVR Code(s): I48.91 - UNSPECIFIED ATRIAL FIBRILLATION Status: Acute (4) COPD exacerbation Code(s): J44.1 - CHRONIC OBSTRUCTIVE PULMONARY DISEASE W (ACUTE) EXACERBATION Status: Acute (5) Community acquired bacterial pneumonia Code(s): J15.9 - UNSPECIFIED BACTERIAL PNEUMONIA Status: Acute (6) Chronic anticoagulation Code(s): Z79.01 - [facility] (CURRENT) USE OF ANTICOAGULANTS Status: Chronic (7) Hypertension Code(s): I10 - ESSENTIAL (PRIMARY) HYPERTENSION Status: Chronic Qualifiers: Hypertension type: essential hypertension Qualified Code(s): I10 - Essential (primary) hypertension - Plan cont O2, iv antibx, nebs, steroids cont digoxin, anticoag discuss lobsterman plans witonsultants
--- NOTE | 2019-10-07 14:11 | PRG ---
DATE OF SERVICE: 10/07/2019 SUBJECTIVE: Mr. Verdugo is feeling better. He has less diarrhea. He says he is looking forward to getting his walker, so he can start ambulating. OBJECTIVE: VITAL SIGNS: On exam, temperature 97.0, pulse 106, respirations 22, O2 saturation 93% on 3 L, blood pressure 160/67. HEENT: Clear. NECK: No adenopathy. LUNGS: Fairly clear posteriorly. CARDIAC: S1 and S2, regular. ABDOMEN: Soft. EXTREMITIES: No edema. LABORATORY DATA: White blood cell count 17.8, hematocrit 30, and platelet count 257. His INR is 2.0. Sodium 136, potassium 4.8, BUN 43, creatinine 1.1, glucose 115. ASSESSMENT: 1. Streptococcal pneumonia sepsis. 2. Chronic obstructive pulmonary disease. 3. Diarrhea. PLAN: The patient is getting better on current medical therapy. I would anticipate him going home soon. Job ID: [id number]
--- NOTE | 2019-10-07 16:25 | PDOC.CPN ---
- Subjective Date: 10/07/19 Time: 16:24 Interval history: No new issues. No chest pain. - Review of Systems General: denies: fever/chills, weight/appetite/sleep changes, night sweats, fatigue Respiratory: denies: cough, congestion, shortness of breath, exercise intolerance Cardiovascular: denies: chest pain, palpitation, edema, paroxysmal nocturnal dyspnea, orthopnea Gastrointestinal: denies: nausea, vomiting, diarrhea, constipation, abd pain, GI bleeding Musculoskeletal: denies: pain, tenderness, stiffness, swelling, arthritis/ arthralgias Neurological: denies: numbness, syncope, seizure, weakness - Objective Allergies/Adverse Reactions: Allergies Allergy/AdvReac Type Severity Reaction Status Date / Time No Known Drug Allergies Allergy Verified 07/30/14 22:17 Visit Medications: Current Medications Acetaminophen (Tylenol) 650 mg PO Q4H PRN PRN Reason: Headache/Fever/Mild Pain (1-3) Albuterol/Ipratropium (Duoneb) 3 ml NEB [id number] [facility] Last Admin: 10/07/19 14:36 Dose: 3 ml Lipase/Protease/Amylase ([place] [id number]) 1 cap FS .PER PROTOCOL PRN PRN Reason: TUBE OCCLUSION PROTOCOL Buprenorphine/Naloxone (Suboxone) 1 film SL HS [facility] Last Admin: 10/06/19 20:47 Dose: 1 film Digoxin (Lanoxin) 0.125 mg PO MWF [facility] Last Admin: 10/05/19 08:41 Dose: 0.125 mg Diltiazem HCl (Cardizem Cd) 120 mg PO DAILY [facility] [place] Last Admin: 10/07/19 07:56 Dose: 120 mg Ceftriaxone Sodium 2 gm/ (Sodium Chloride) 100 mls @ 200 mls/hr IVPB Q24HR [facility] [place] Last Admin: 10/07/19 07:55 Dose: 100 mls Miscellaneous Medication (Pharmacy To Dose) 1 each PO PRN PRN PRN Reason: Pharmacy to dose Ondansetron HCl (Zofran) 4 mg SLOW IVP Q6H PRN PRN Reason: Nausea Last Admin: 10/03/19 05:16 Dose: 4 mg Pantoprazole Sodium (Protonix) 40 mg PO BID [facility] Potassium Chloride (Klor-Con 10) 20 meq PO 0800 [facility] Last Admin: 10/07/19 07:56 Dose: 20 meq Prednisone (Prednisone) 20 mg PO QAM-WM [facility] [place] Last Admin: 10/07/19 07:56 Dose: 20 mg Saccharomyces Boulardii (Florastor) 250 mg PO DAILY [facility] [place] Last Admin: 10/07/19 07:56 Dose: 250 mg Senna/Docusate Sodium (Senokot S) 2 tab PO BIDPRN PRN PRN Reason: Constipation Last Admin: 10/04/19 16:35 Dose: 2 tab Sodium Bicarbonate (Bicarbonate, Sodium) 650 mg PER TUBE .PER PROTOCOL PRN PRN Reason: ENTERAL TUBE OCCLUSION Sodium Chloride (Normal Saline Pf) 10 ml FS PRN PRN PRN Reason: RECONSTITUTION Sterile Water (Bacteriostatic Water) 1 ml FS PRN PRN PRN Reason: RECONSTITUTION Last Admin: 10/01/19 18:31 Dose: 1 ml Tamsulosin HCl (Flomax) 0.4 mg PO QPM [facility] [place] Last Admin: 10/06/19 20:48 Dose: 0.4 mg Torsemide (Demadex) 20 mg PO DAILY [facility] [place] Last Admin: 10/07/19 07:56 Dose: 20 mg Warfarin Sodium (Coumadin) 2 mg PO 1700 [facility] [place] Last Admin: 10/06/19 16:34 Dose: 2 mg Vital Signs & Weight: Vital Signs Temp Pulse Resp BP BP Pulse Ox 10/07/19 16:00 97.2 F L 105 H 16 105/94 H 94 L 10/07/19 14:36 106 H 20 96 10/07/19 11:44 97.0 F L 106 H 22 H 162/67 H 93 L 10/07/19 11:36 104 H 18 94 L 10/07/19 08:18 99 20 95 10/07/19 08:00 137/82 10/07/19 07:57 96.6 F L 115 H 20 167/103 H 95 Admit Weight 193 lb 4.8 oz Weight 209 lb 8 oz - Physical Exam General: alert & oriented x3 HEENT: normocephaly Neck: supple neck Cardiac: irregularly regular Lungs: normal breath sounds Neuro: grossly intact Abdomen: active bowel sounds Extremities: no edema Skin: clear Musculoskeletal: no pain - Labs Result Diagrams: 10/07/19 06:25 10/07/19 04:16 Troponin/CKMB CK-MB (CK-2) 2.2 ng/mL (0-6.6) 09/30/19 01:18 Troponin I 0.053 ng/mL (< 0.028) H 09/30/19 01:18 - Telemetry Supraventricular conduction: atrial fibrillation - Assessment/Plan Assessment/Plan: 1. Chronic afib 2. 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 COPD 4. Pneumonia PLAN: - Continue rate control. HR in the 80's to low 100's. Sometimes up to the 120' s. - Cannot up titrate CCB or add BB due to borderline low BP. - Continue Dig and Cardizem. - Will get dig level tomorrow and it low will increase dose. - Warfarin for stroke prophylaxis. - Dr. Willis will follow in the morning.
[2019-10-07] MEDS: Warfarin Sodium 2 MG TAB PO SCH (19:17)
[2019-10-07] MEDS: Tamsulosin HCl 0.4 MG CAP PO SCH (20:03)
[2019-10-07] MEDS: Pancrelipase DR 12000 1 CAP FS PRN (20:22)
[2019-10-07] MEDS: Buprenorphine 8mg/Naloxone 2mg per 1 FILM SL SCH (20:50)
[2019-10-08 06:37] LABS: Prothrombin Time 22.9 SEC (12.0-14.7)
[2019-10-08 06:40] LABS: Eosinophils 2 % (0-10); Lymphocytes 5 % (21-51); MDiff Complete? YES; Mean Corpuscular HGB CONC 31.9 g/dL (32.0-36.0); Mean Corpuscular Hemoglobin 29.3 pg (27.0-31.0); Mean Corpuscular Volume 91.9 fL (78.0-98.0); Mean Platelet Volume 8.4 fL (7.4-10.4); Metamyelocyte 1 % (0-0); Monocytes 8 % (0-10); Neutrophil 84 % (42-75); Nucleated RBC 1 % (0); Platelet Count 234 thou/uL (130-400); Platelet Morphology Comment Appears Adequate; RBC Distribution Width 13.7 % (11.5-14.5); White Blood Cell (WBC) Count 16.8 thou/uL (4.8-10.8)
[2019-10-08 06:42] LABS: Anion Gap 14 mmol/L (10-20); BUN (Urea Nitrogen) 40 mg/dL (8.4-25.7); Calc. Creatinine Clearance 74 mL/min (70-130); Calcium 8.6 mg/dL (7.8-10.44); Carbon Dioxide 32 mmol/L (23-31); Chloride 100 mmol/L (98-107); Estimated GFR-MDRD 71; Glucose 129 mg/dL (83-110); Potassium 5.3 mmol/L (3.5-5.1); Sodium 141 mmol/L (136-145)
[2019-10-08 06:44] LABS: Digoxin 0.17 ng/mL (0.8-2.0)
[2019-10-08] MEDS: Saccharomyces boulardii 250 MG CAP PO SCH (08:21)
[2019-10-08] MEDS: predniSONE 20 MG TAB PO SCH (08:21)
[2019-10-08] MEDS: Digoxin 0.125 MG TAB PO SCH (08:21)
[2019-10-08] MEDS: Torsemide 20 MG TAB PO SCH (08:21)
[2019-10-08] MEDS: Potassium Chloride 10 MEQ TAB PO SCH (08:22)
[2019-10-08] MEDS: cefTRIAXone\\ROCEPHIN 2 GM in Sodium Chloride 0.9% 100 ML IVPB SCH (08:29)
[2019-10-08] MEDS ORDERED: predniSONE 20 MG TAB PO SCH (09:58)
--- NOTE | 2019-10-08 10:09 | PRG ---
DATE OF SERVICE: SUBJECTIVE: He feels better. He had no acute complaints. OBJECTIVE: VITAL SIGNS: Temperature 97.8, pulse 118, respirations 22, O2 saturation 93% on 3 L, blood pressure 145/64. HEENT: Clear. NECK: No adenopathy or JVD. CHEST: Clear without wheezing or rhonchi. CARDIAC: S1 and S2. Irregularly irregular. ABDOMEN: Soft. EXTREMITIES: No edema. ASSESSMENT: 1. Streptococcal sepsis. 2. Chronic obstructive pulmonary disease. 3. Diarrhea. PLAN: Transition to oral antibiotics. Increase activity as tolerated. Hopefully, home soon. Job ID: [id number]
[2019-10-08] MEDS ORDERED: predniSONE 5 MG TAB PO SCH (10:15)
--- NOTE | 2019-10-08 10:55 | PDOC.HOSPP ---
- Subjective Encounter Date: 10/08/19 Encounter Time: 10:52 Subjective: feels weak, OW doing well - Objective Vital Signs & Weight: Vital Signs (12 hours) Temp Pulse Resp BP Pulse Ox 10/08/19 09:27 106 H 20 145/64 H 10/08/19 08:15 97.8 F 118 H 22 H 155/103 H 93 L 10/08/19 03:46 98.1 F 95 18 179/77 H 100 10/08/19 02:49 103 H 20 99 10/07/19 23:08 72 16 98 Weight Admit Weight 193 lb 4.8 oz Weight 209 lb 8 oz Most Recent Monitor Data Heart Rate from ECG 103 NIBP 144/94 NIBP BP-Mean 110 Respiration from ECG 25 SpO2 94 I&O: 10/07/19 10/08/19 10/09/19 06:59 06:59 06:59 Intake Total 1835 300 Output Total 2600 1675 Balance -088 -4119 Result Diagrams: 10/08/19 06:20 10/08/19 06:20 Hospitalist ROS - Medication Medications: Active Medications Generic Name Dose Route Start Last Admin Trade Name Freq PRN Reason Stop Dose Admin Albuterol/Ipratropium 3 ml 10/01/19 14:30 10/08/19 07:48 Duoneb NEB 3 ml [id number] JONATHAN Administration Lipase/Protease/Amylase 1 cap 10/01/19 19:13 10/07/19 20:22 Priscila Mccabe [id number] FS 1 cap .PER PROTOCOL PRN Administration TUBE OCCLUSION PROTOCOL Buprenorphine/Naloxone 1 film 10/02/19 21:00 10/07/19 20:50 Suboxone SL 1 film HS JONATHAN Administration Diltiazem HCl 120 mg 10/03/19 09:00 10/08/19 08:22 Cardizem Cd PO 120 mg DAILY JONATHAN Administration Ondansetron HCl 4 mg 10/03/19 05:09 10/03/19 05:16 Zofran SLOW IVP 4 mg Q6H PRN Administration Nausea Pantoprazole Sodium 40 mg 10/07/19 21:00 10/08/19 08:22 Protonix PO 40 mg BID JONATHAN Administration Saccharomyces Boulardii 250 mg 09/30/19 09:00 10/08/19 08:21 Florastor PO 250 mg DAILY JONATHAN Administration Senna/Docusate Sodium 2 tab 09/29/19 18:08 10/04/19 16:35 Senokot S PO 2 tab BIDPRN PRN Administration Constipation Sterile Water 1 ml 09/29/19 18:15 10/01/19 18:31 Bacteriostatic Water FS 1 ml PRN PRN Administration RECONSTITUTION Tamsulosin HCl 0.4 mg 09/29/19 21:00 10/07/19 20:03 Flomax PO 0.4 mg QPM JONATHAN Administration Torsemide 20 mg 10/04/19 09:00 10/08/19 08:21 Demadex PO 20 mg DAILY JONATHAN Administration Warfarin Sodium 2 mg 10/03/19 17:00 10/07/19 19:17 Coumadin PO 2 mg 1700 JONATHAN Administration - Exam General Appearance: awake alert Neck: no JVD Heart: irregular Respiratory: CTAB Gastrointestinal: soft, normal bowel sounds Extremities: no edema Hosp A/P (1) Bacteremia due to Gram-positive bacteria Code(s): R78.81 - BACTEREMIA Status: Acute (2) Acute on chronic respiratory failure with hypoxia and hypercapnia Code(s): J96.21 - ACUTE AND CHRONIC RESPIRATORY FAILURE WITH HYPOXIA; J96.22 - ACUTE AND CHRONIC RESPIRATORY FAILURE WITH HYPERCAPNIA Status: Acute (3) Atrial fibrillation with RVR Code(s): I48.91 - UNSPECIFIED ATRIAL FIBRILLATION Status: Acute (4) COPD exacerbation Code(s): J44.1 - CHRONIC OBSTRUCTIVE PULMONARY DISEASE W (ACUTE) EXACERBATION Status: Acute (5) Community acquired bacterial pneumonia Code(s): J15.9 - UNSPECIFIED BACTERIAL PNEUMONIA Status: Acute (6) Chronic anticoagulation Code(s): Z79.01 - [employer] (CURRENT) USE OF ANTICOAGULANTS Status: Chronic (7) Hypertension Code(s): I10 - ESSENTIAL (PRIMARY) HYPERTENSION Status: Chronic Qualifiers: Hypertension type: essential hypertension Qualified Code(s): I10 - Essential (primary) hypertension - Plan transition to po antib dig level low, increase digoxin to daaily cont anticoag discuss DC with oncology
[2019-10-08] MEDS: Warfarin Sodium 2 MG TAB PO SCH (16:52)
[2019-10-08] MEDS: Tamsulosin HCl 0.4 MG CAP PO SCH (22:24)
[2019-10-08] MEDS: Buprenorphine 8mg/Naloxone 2mg per 1 FILM SL SCH (22:44)
[2019-10-08] MEDS: Pancrelipase DR 12000 1 CAP FS PRN (22:44)
[2019-10-09] MEDS: Digoxin 0.125 MG TAB PO SCH (08:51)
[2019-10-09] MEDS: Cefdinir 300 MG CAP PO SCH (08:51)
[2019-10-09] MEDS: predniSONE 5 MG TAB PO SCH (08:52)
[2019-10-09] MEDS: Torsemide 20 MG TAB PO SCH (08:52)
[2019-10-09] MEDS: Saccharomyces boulardii 250 MG CAP PO SCH (08:52)
--- NOTE | 2019-10-09 09:02 | PRG ---
DATE OF SERVICE: 10/09/2019 SUBJECTIVE: Mr. Verdugo is doing better. He is eager to go home. OBJECTIVE: VITAL SIGNS: Temperature 97.5, pulse 104, respirations 20, O2 saturation 98% on 3.5 L, and blood pressure 139/85. HEENT: Clear. NECK: No adenopathy or JVD. CARDIAC: S1 and S2, regular. LUNGS: Clear to auscultation. ABDOMEN: Soft. EXTREMITIES: No edema. ASSESSMENT: 1. Stable severe chronic obstructive pulmonary disease. 2. Streptococcal sepsis. PLAN: He was transitioned over to oral antibiotics yesterday. He is on a very low dose of prednisone. Hopefully, the hospitalist group will agree the discharge will be done within the next day or two. I will be happy to follow up in the office within the next month. Job ID: [id number]
[2019-10-09 10:46] LABS: White Blood Cell (WBC) Count 13.6 thou/uL (4.8-10.8)
--- NOTE | 2019-10-09 10:52 | PDOC.HOSPP ---
- Subjective Encounter Date: 10/09/19 Encounter Time: 10:49 Subjective: slow improvement - Objective Vital Signs & Weight: Vital Signs (12 hours) Temp Pulse Resp BP BP BP Pulse Ox 10/09/19 10:35 90 18 10/09/19 08:51 123 H 144/60 H 10/09/19 08:22 104 H 20 98 10/09/19 07:11 97.5 F L 96 18 139/85 97 10/09/19 03:52 97.5 F L 92 14 138/65 97 10/09/19 02:45 107 H 18 98 10/08/19 23:06 103 H 18 97 Weight Admit Weight 193 lb 4.8 oz Weight 209 lb 8 oz Most Recent Monitor Data Heart Rate from ECG 103 NIBP 144/94 NIBP BP-Mean 110 Respiration from ECG 25 SpO2 94 I&O: 10/08/19 10/09/19 10/10/19 06:59 06:59 06:59 Intake Total 300 1140 Output Total 1675 2450 Balance -1375 -1310 Result Diagrams: 10/09/19 10:30 10/08/19 06:20 Hospitalist ROS - Medication Medications: Active Medications Generic Name Dose Route Start Last Admin Trade Name Freq PRN Reason Stop Dose Admin Albuterol/Ipratropium 3 ml 10/01/19 14:30 10/09/19 10:35 Duoneb NEB 3 ml [id number] JONATHAN Administration Lipase/Protease/Amylase 1 cap 10/01/19 19:13 10/08/19 22:44 Cretracey Mccabe [id number] FS 1 cap .PER PROTOCOL PRN Administration TUBE OCCLUSION PROTOCOL Buprenorphine/Naloxone 1 film 10/02/19 21:00 10/08/19 22:44 Suboxone SL 1 film HS JONATHAN Administration Cefdinir 600 mg 10/09/19 09:00 10/09/19 08:51 Omnicef PO 600 mg DAILY JONATHAN Administration Digoxin 0.125 mg 10/09/19 09:00 10/09/19 08:51 Lanoxin PO 0.125 mg DAILY JONATHAN Administration Diltiazem HCl 120 mg 10/03/19 09:00 10/09/19 08:51 Cardizem Cd PO 120 mg DAILY JONATHAN Administration Ondansetron HCl 4 mg 10/03/19 05:09 10/03/19 05:16 Zofran SLOW IVP 4 mg Q6H PRN Administration Nausea Pantoprazole Sodium 40 mg 10/07/19 21:00 10/09/19 08:52 Protonix PO 40 mg BID JONATHAN Administration Prednisone 10 mg 10/09/19 08:00 10/09/19 08:52 Prednisone PO 10 mg QAM-WM JONATHAN Administration Saccharomyces Boulardii 250 mg 09/30/19 09:00 10/09/19 08:52 Florastor PO 250 mg DAILY JONATHAN Administration Senna/Docusate Sodium 2 tab 09/29/19 18:08 10/04/19 16:35 Senokot S PO 2 tab BIDPRN PRN Administration Constipation Sterile Water 1 ml 09/29/19 18:15 10/01/19 18:31 Bacteriostatic Water FS 1 ml PRN PRN Administration RECONSTITUTION Tamsulosin HCl 0.4 mg 09/29/19 21:00 10/08/19 22:24 Flomax PO 0.4 mg QPM JONATHAN Administration Torsemide 20 mg 10/04/19 09:00 10/09/19 08:52 Demadex PO 20 mg DAILY JONATHAN Administration Warfarin Sodium 2 mg 10/03/19 17:00 10/08/19 16:52 Coumadin PO 2 mg 1700 JONATHAN Administration - Exam Neck: no JVD Heart: RRR, no murmur Respiratory - other findings: bilat post rales, R>l Gastrointestinal: soft, normal bowel sounds Extremities: no edema Hosp A/P (1) Bacteremia due to Gram-positive bacteria Code(s): R78.81 - BACTEREMIA Status: Acute (2) Acute on chronic respiratory failure with hypoxia and hypercapnia Code(s): J96.21 - ACUTE AND CHRONIC RESPIRATORY FAILURE WITH HYPOXIA; J96.22 - ACUTE AND CHRONIC RESPIRATORY FAILURE WITH HYPERCAPNIA Status: Acute (3) Atrial fibrillation with RVR Code(s): I48.91 - UNSPECIFIED ATRIAL FIBRILLATION Status: Acute (4) COPD exacerbation Code(s): J44.1 - CHRONIC OBSTRUCTIVE PULMONARY DISEASE W (ACUTE) EXACERBATION Status: Acute (5) Community acquired bacterial pneumonia Code(s): J15.9 - UNSPECIFIED BACTERIAL PNEUMONIA Status: Acute (6) Chronic anticoagulation Code(s): Z79.01 - [employer] (CURRENT) USE OF ANTICOAGULANTS Status: Chronic (7) Hypertension Code(s): I10 - ESSENTIAL (PRIMARY) HYPERTENSION Status: Chronic Qualifiers: Hypertension type: essential hypertension Qualified Code(s): I10 - Essential (primary) hypertension - Plan transition to po antib dig level low, increase digoxin to daaily cont anticoag lópez home O2 Arrangements for DC in AM
[2019-10-09 11:06] LABS: Anion Gap 12 mmol/L (10-20); BUN (Urea Nitrogen) 38 mg/dL (8.4-25.7); Calc. Creatinine Clearance 67 mL/min (70-130); Carbon Dioxide 35 mmol/L (23-31); Chloride 99 mmol/L (98-107); Estimated GFR-MDRD 63; Glucose 163 mg/dL (83-110); Potassium 4.9 mmol/L (3.5-5.1); Sodium 141 mmol/L (136-145)
[2019-10-09] MEDS ORDERED: Artificial Tears 18 DROP/0.9 ML EA EYE PRN (11:42)
[2019-10-09 12:06] LABS: Band 3 % (5-11); Eosinophils 1 % (0-10); Hypochromia SLIGHT = 6-15 cells (100X) (0-5/hpf); Lymphocytes 9 % (21-51); MDiff Complete? YES; Mean Corpuscular HGB CONC 30.6 g/dL (32.0-36.0); Mean Corpuscular Hemoglobin 28.8 pg (27.0-31.0); Mean Corpuscular Volume 94.1 fL (78.0-98.0); Mean Platelet Volume 8.4 fL (7.4-10.4); Monocytes 2 % (0-10); Neutrophil 85 % (42-75); Platelet Count 236 thou/uL (130-400); Platelet Morphology Comment Appears Adequate; Polychromasia SLIGHT = 2-3 cells (100X) (0-2/hpf); RBC Distribution Width 13.8 % (11.5-14.5); Red Blood Cell (RBC) Count 3.48 mill/uL (4.70-6.10)
[2019-10-09] MEDS ORDERED: Warfarin Sodium 2 MG TAB PO SCH (17:00)
--- NOTE | 2019-10-09 18:26 | PRG ---
DATE OF SERVICE: 10/09/2019 SUBJECTIVE: Mr. Verdugo is breathing better, says that still not breathing normally, but it is improved. OBJECTIVE: VITAL SIGNS: Blood pressure 101/52, pulse is in the 70s, it is atrial fibrillation. LUNGS: Distant, but no wheezing. CARDIAC: Irregular. ABDOMEN: Soft, nontender. EXTREMITIES: There is no edema. ASSESSMENT: 1. Chronic atrial fibrillation. 2. Diastolic heart failure. 3. Pneumonia. 4. Chronic obstructive pulmonary disease. PLAN: Possibly home tomorrow. Re-evaluate the patient tomorrow. Job ID: [id number]
[2019-10-09] MEDS: Tamsulosin HCl 0.4 MG CAP PO SCH (20:38)
[2019-10-09] MEDS: Buprenorphine 8mg/Naloxone 2mg per 1 FILM SL SCH (20:39)
[2019-10-10] MEDS: Torsemide 20 MG TAB PO SCH ×2 (08:16→15:16)
[2019-10-10] MEDS: Digoxin 0.125 MG TAB PO SCH ×2 (08:16→15:15)
[2019-10-10] MEDS: Cefdinir 300 MG CAP PO SCH ×2 (08:16→15:15)
[2019-10-10] MEDS: predniSONE 5 MG TAB PO SCH ×2 (08:16→15:14)
[2019-10-10] MEDS: Saccharomyces boulardii 250 MG CAP PO SCH ×2 (08:16→15:15)
--- NOTE | 2019-10-10 11:41 | PRG ---
DATE OF SERVICE: 10/10/2019 SUBJECTIVE: The patient remains in the hospital, although I anticipate he will go home soon. He says his breathing is at baseline. He has no complaints. OBJECTIVE: HEENT: Unremarkable. NECK: Without adenopathy or JVD. LUNGS: Clear, but diminished breath sounds. CARDIAC: S1 and S2. Regular. ABDOMEN: Soft. EXTREMITIES: No edema. ASSESSMENT: Stable chronic obstructive pulmonary disease. PLAN: Hopefully, home today. Job ID: [id number]
--- NOTE | 2019-10-10 13:50 | DIS ---
DATE OF ADMISSION: 09/29/2019 DATE OF DISCHARGE: 10/10/2019 PRIMARY CARE PHYSICIAN: Cristine Brewer MD DISPOSITION: Discharged home. FINAL DIAGNOSES: Acute on chronic respiratory failure with hypoxemia; bacteremia; streptococcal pneumonia; chronic obstructive pulmonary disease; atrial fibrillation, on chronic anticoagulation; hypertension. DISCHARGE MEDICATIONS: 1. Digoxin 125 mcg a day. 2. Albuterol 2 puffs q.6 hours p.r.n. 3. Warfarin 2 mg a day. 4. Demadex 20 mg a day. 5. Flomax 0.4 mg a day. 6. Potassium chloride 10 mEq a day. 7. DuoNeb 3 mL q.i.d. 8. Cardizem-LA 120 mg daily. 9. Prednisone 10 mg a day. 10. Omnicef 600 mg a day for 10 days. ALLERGIES: NO KNOWN DRUG ALLERGIES. CODE STATUS: Full. PENDING AT TIME OF DISCHARGE: Nothing. DIET: Heart healthy. CONSULTATIONS: Dr. Peterson Santos, Gastroenterology; Dr. Yordy Garcia, Pulmonology; Dr. Dylan Babb, Infectious Disease; Dr. Luis Manuel Willis, Cardiology. PROCEDURES: On 10/04/2019, esophagogastroduodenoscopy by Dr. Fahad Perales demonstrated esophagitis. HOSPITAL COURSE: The patient was admitted to the hospital to [facility] to the Hospitalist Service with shortness of breath and found to be hypoxic with O2 saturation of 96%. He was put on BiPAP. He eventually was intubated, found to be in atrial fibrillation with rapid ventricular response, and given Cardizem. He was started on IV antibiotics including Zosyn and vancomycin. His blood cultures grew strep pneumonia. His antibiotics were changed to Rocephin daily. Echocardiogram was done, which showed an EF of 35% to 40% with restrictive filling pattern. The patient had mild anemia through his hospital stay. He was eventually weaned off IV diltiazem to oral medicines for his atrial fibrillation. His initial creatinine was 2.10, consistent with acute kidney injury. With fluids, it came down to 1.01. Dr. Willis followed his atrial fibrillation. Dr. Babb followed for his bacteremia. He eventually was weaned from Rocephin to oral Omnicef. Chest x-ray done on 10/03 demonstrated clearing of the right upper lobe pneumonia. Left lung field was clear. Currently, the patient has been afebrile. Blood pressure 137/90 to 131/57; on O2 three liters per nasal cannula, which is consistent with what he is at home with his chronic respiratory failure; pulse was 100 to 90; respiratory rate was 18 to 20. Chest shows some rales remaining in the right upper lobe. He has good inspiratory effort. No tachypnea. He is being discharged for ongoing therapy as an outpatient with antibiotics etc. and requested to follow up with his PCP in one week. TIME SPENT: Thirty-five minutes spent preparing this discharge. Job ID: [id number]
[2019-10-10 15:08] VITALS: TEMP 98.1
[2019-10-10 16:22] LABS: Hemoglobin 10.2 g/dL (14.0-18.0); Mean Corpuscular Volume 94.8 fL (78.0-98.0); Red Blood Cell (RBC) Count 3.48 mill/uL (4.70-6.10); White Blood Cell (WBC) Count 13.7 thou/uL (4.8-10.8)
[2019-10-10 16:23] LABS: Mean Corpuscular HGB CONC 30.9 g/dL (32.0-36.0); Mean Corpuscular Hemoglobin 29.3 pg (27.0-31.0)
[2019-10-10 16:31] LABS: RBC Distribution Width 14.1 % (11.5-14.5)
[2019-10-10 16:32] LABS: Mean Platelet Volume 8.3 fL (7.4-10.4); Platelet Count 225 thou/uL (130-400)
[2019-10-10 16:34] LABS: INR-International Normal Ratio 2.9; Prothrombin Time 29.8 SEC (12.0-14.7)
[2019-10-10 17:00] LABS: Band 1 % (5-11); Eosinophils 1 % (0-10); Lymphocytes 7 % (21-51); Monocytes 6 % (0-10); Neutrophil 85 % (42-75); Ovalocytes SLIGHT = 2-5 cells (100X) (0-1/hpf); Platelet Morphology Comment Appears Adequate; Polychromasia SLIGHT = 2-3 cells (100X) (0-2/hpf)
[2019-10-10 17:01] LABS: MDiff Complete? YES
[2019-10-10 17:23] LABS: Anion Gap 10 mmol/L (10-20); BUN (Urea Nitrogen) 38 mg/dL (8.4-25.7); Calc. Creatinine Clearance 72 mL/min (70-130); Carbon Dioxide 37 mmol/L (23-31); Chloride 100 mmol/L (98-107); Estimated GFR-MDRD 68; Glucose 112 mg/dL (83-110); Potassium 4.7 mmol/L (3.5-5.1); Sodium 142 mmol/L (136-145)
[2019-10-10 17:57] VITALS: BP 142/85
== END 2019-10-10 17:02 | disposition home health service (06) | DRG 208 ==
LOC: ERS 14:58 → CCU 20:52 → 2NO 10-03 15:44
PROVIDERS: ADMIT Internal Medicine; ATTEND Internal Medicine
PROC: 5A1945Z Respiratory Ventilation, 24-96 Consecutive Hours (ICD-10-PCS; 2019-09-29)
PROC: 3E033XZ Introduction of Vasopressor into Peripheral Vein, Percutaneous Approach (ICD-10-PCS; 2019-09-29)
PROC: 0BH17EZ Insertion of Endotracheal Airway into Trachea, Via Natural or Artificial Opening (ICD-10-PCS; 2019-09-29)
PROC: 0DJ08ZZ Inspection of Upper Intestinal Tract, Via Natural or Artificial Opening Endoscopic (ICD-10-PCS; principal; 2019-10-04)
DX: J96.21 Acute and chronic respiratory failure with hypoxia (principal); J13 Pneumonia due to Streptococcus pneumoniae; I50.43 Acute on chronic combined systolic (congestive) and diastolic (congestive) heart failure; R65.20 Severe sepsis without septic shock; N17.9 Acute kidney failure, unspecified; I47.1 Supraventricular tachycardia; I48.20 Chronic atrial fibrillation, unspecified; K22.10 Ulcer of esophagus without bleeding; D68.32 Hemorrhagic disorder due to extrinsic circulating anticoagulants; K52.1 Toxic gastroenteritis and colitis; J44.1 Chronic obstructive pulmonary disease with (acute) exacerbation; J96.22 Acute and chronic respiratory failure with hypercapnia; N40.0 Benign prostatic hyperplasia without lower urinary tract symptoms; I11.0 Hypertensive heart disease with heart failure; Z96.641 Presence of right artificial hip joint; M06.9 Rheumatoid arthritis, unspecified; G89.29 Other chronic pain; I08.3 Combined rheumatic disorders of mitral, aortic and tricuspid valves; D64.9 Anemia, unspecified; T47.4X5A Adverse effect of other laxatives, initial encounter; Z79.01 Long term (current) use of anticoagulants; Z79.82 Long term (current) use of aspirin; Z79.899 Other long term (current) drug therapy; Z87.891 Personal history of nicotine dependence
CPT/HCPCS: 31500; 36415; 36556; 51702; 71045; 76770; 80048; 80053; 80076; 80162; 80202; 82553; 82805; 83605; 83735; 83880; 84484; 85007; 85025; 85027; 85060; 85610; 87040; 87070; 87077; 87149; 87186; 87205; 87324; 87449; 87804; 93005; 93306; 93798; 94002; 94003; 94640; 94644; 94660; 94760; 96361; 96365; 96366; 96367; 96375; 96376; 99292; C9113; J0692; J0696; J1160; J1940; J1956; J2001; J2405; J2543; J2704; J2920; J2930; J3010; J3370; J3430; J3475; J3490; J7512; J7611; J7620

== ENCOUNTER 2019-12-04 15:15 | Inpatient (IN) | payer MEDICARE, MEDICAID ==
[2019-12-04 16:00] LABS: #Basophils 0.1 thou/uL (0.0-0.2); #Eosinphils 0.2 thou/uL (0.0-0.7); #Lymphocytes 1.8 thou/uL (1.20-3.40); #Monocytes 1.1 thou/uL (0.11-0.59); #Neutrophils 5.1 thou/uL (1.40-6.50); %Basophils 0.7 % (0.0-1.0); %Eosinophils 2.1 % (0.0-10.0); %Lymphocytes 22.1 % (21.0-51.0); %Monocytes 13.3 % (0.0-10.0); %Neutrophils 61.9 % (42.0-75.0); Hemoglobin 8.7 g/dL (14.0-18.0); Mean Corpuscular HGB CONC 29.5 g/dL (32.0-36.0); Mean Corpuscular Hemoglobin 25.5 pg (27.0-31.0); Mean Corpuscular Volume 86.7 fL (78.0-98.0); Mean Platelet Volume 8.8 fL (7.4-10.4); Platelet Count 192 thou/uL (130-400); RBC Distribution Width 15.5 % (11.5-14.5); White Blood Cell (WBC) Count 8.2 thou/uL (4.8-10.8)
[2019-12-04 16:09] LABS: ALT (SGPT) 15 U/L (8-55); AST (SGOT) 31 U/L (5-34); Albumin 3.3 g/dL (3.4-4.8); Alkaline Phosphatase 164 U/L (40-110); BUN (Urea Nitrogen) 43 mg/dL (8.4-25.7); Bilirubin, Total 0.7 mg/dL (0.2-1.2); Calc. Creatinine Clearance 0 mL/min (70-130); Estimated GFR-MDRD 35; Globulin 4.2 g/dL (2.4-3.5); Glucose 115 mg/dL (83-110); Protein, Total 7.5 g/dL (5.8-8.1)
[2019-12-04 16:18] LABS: Anion Gap 16 mmol/L (10-20); Carbon Dioxide 36 mmol/L (23-31); Chloride 93 mmol/L (98-107); Potassium 5.3 mmol/L (3.5-5.1); Sodium 140 mmol/L (136-145)
--- NOTE | 2019-12-04 16:19 | RAD ---
EXAM: CHEST ONE VIEW HISTORY: Dyspnea. Crackling lung sounds. COMPARISON: 10/03/2019 FINDINGS: Cardiac silhouette is magnified by projection. The consolidation and interstitial and alveolar opacit ies in the right upper lobe on the prior exam have improved. There is persistent linear and minimal patchy density present in the right midlung zone which may be related to residual scarring or residua l or recurrent pneumonia. A small right pleural effusion is present, but pleural effusion has improved from prior exam. There is increased left perihilar interstitial densities with patchy parenc hymal density left midlung zone. There is questionable tiny left pleural effusion. Severe bilateral glenohumeral osteoarthropathy is again noted. No other interval change. IMPRESSION: 1. Findings worrisome for developing pneumonia in the left midlung zone. Follow-up to resolution is r ecommended. 2. Improvement in right pleural effusion as well as significant interval improvement in area of conso lidation and interstitial and alveolar opacities in the right upper lobe. However, there is linear and slight nodular density present in the right midlung zone which may be related to residual scarrin g or residual versus recurrent pneumonia. This can also be reevaluated on follow-up exam.
[2019-12-04 16:31] LABS: CKMB 1.8 ng/mL (0-6.6)
[2019-12-04] MEDS ORDERED: Cefepime 2 GM VIAL ONE (16:38)
[2019-12-04 16:45] LABS: Bite Cells SLIGHT = 2-5 cells (100X) (0-1/hpf); Elliptocytes SLIGHT = 2-5 cells (100X) (0-1/hpf); Helmet Cells SLIGHT = 2-5 cells (100X) (0-1/hpf); Hypochromia MODERATE=16-30 cells (100X) (0-5/hpf); MDiff Complete? YES; Platelet Morphology Comment Appears Adequate; Polychromasia SLIGHT = 2-3 cells (100X) (0-2/hpf); Reflex for Review?? NO; Schistocytes SLIGHT = 2-5 cells (100X) (0-1/hpf); Target Cells SLIGHT = 2-5 cells (100X) (0-1/hpf); Tear Drops SLIGHT = 2-5 cells (100X) (0-1/hpf)
[2019-12-04 16:52] LABS: Actual Bicarbonate (HCO3a) 41.8 mEq/L (22-28); Analyzer IN Cardio ER; Base Excess (BEa) 15.6 mEq/L (-2.0 to +3.0); CO2 Tension 62.4 mmHg (35.0-45.0); Calcium, Ionized 1.08 mmol/L (1.12-1.30); Carboxyhemoglobin (COHb) 0.9 gm% (0.0-3.0); Hemoglobin (Hb) 9.3 g/dL (14.0-18.0); O2 Tension (PaO2) 73.2 mmHg (> 60.0); Puncture Site LRA; pH, Arterial 7.44 (7.35-7.45)
[2019-12-04] MEDS ORDERED: Guaifenesin DM 100-10/5 ML UDCUP PO PRN (19:33)
[2019-12-04] MEDS ORDERED: Acetaminophen 650 MG Suppository PR PRN (19:33)
[2019-12-04] MEDS ORDERED: Acetaminophen 325 MG TAB PO PRN (19:33)
[2019-12-04] MEDS ORDERED: Ondansetron PF 4 MG/2 ML Vial IVP PRN (19:33)
[2019-12-04] MEDS ORDERED: Ondansetron ODT 4 MG TAB PO PRN (19:33)
[2019-12-04] MEDS ORDERED: Senokot S 8.6-50 MG TAB PO PRN (19:33)
[2019-12-04 19:42] LABS: Troponin I 0.041 ng/mL (< 0.028)
[2019-12-04] MEDS ORDERED: Famotidine 20 MG TAB PO SCH (21:00)
[2019-12-04] MEDS ORDERED: Vancomycin HCl 1 GM in Premix Bag 1 BAG IVPB SCH (21:00)
[2019-12-04] MEDS ORDERED: Heparin 5,000 UNITS/ML VIAL SC SCH (21:00)
--- NOTE | 2019-12-04 21:13 | HP ---
PRIMARY CARE PHYSICIAN: Dr. Brewer. CHIEF COMPLAINT: Shortness of breath. HISTORY OF PRESENT ILLNESS: This is an 84-year-old white male with a known history of severe COPD along with CHF, systolic and severe aortic stenosis. He was admitted to the hospital two months ago and was discharged in October. The patient had been on his baseline and has significant COPD symptoms and uses home oxygen 3 L. He has been having trouble with worsening lower extremity swelling. In the outpatient, his Demadex was doubled. The patient states he still thinks he has probably been drinking a little too much fluids. He drinks about a half a gallon of orange juice every other day along with some other fluids throughout the day. He had appointments with his multiple providers today, went to his primary care doctor's office and was in the waiting room for about 3 hours, then after that he went to Dr. Willis's office. The patient noted that he was starting to get more short of breath throughout the day during traveling for these appointments. In Dr. Willis's office, he was noted to be hypoxic and so was sent to the emergency room. In the emergency room, the patient was found to be hypoxic with increased work of breathing. He had a BiPAP placed with significant improvement in his symptoms. An ABG showed chronic CO2 retention. He also had a chest x-ray done, which showed pneumonia in the left middle lung area and possible pneumonia in the right. He was also noted to have some elevation in his creatinine up to 1.8, possibly due to the increased Demadex and his potassium was elevated at 5.3. The patient was given fluids, cefepime, and vancomycin and put on the BiPAP. He is doing much better now with the BiPAP mask breathing much easier and he is currently being admitted to the ICU. PAST MEDICAL HISTORY: 1. COPD, on chronic home oxygen 3 L by nasal cannula. 2. Systolic congestive heart failure with most recent ejection fraction of 35% to 40% in September of 2019. 3. Severe aortic stenosis. 4. Chronic atrial fibrillation. 5. Benign prostatic hyperplasia. 6. Hypertension. 7. Previous TIA. 8. Arthritis. PAST SURGICAL HISTORY: Right hip replacement and hernia repair. FAMILY HISTORY: No strong family history of premature coronary artery disease, stroke, or cancer. SOCIAL HISTORY: The patient is a former smoker. He quit smoking a few years ago. 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 He lives by himself. He is a . He is a full code. His next of kin is his son, Patric Verdugo and will be his medical decision maker if he is incapacitated. ALLERGIES: NO KNOWN DRUG ALLERGIES. CURRENT MEDICATIONS: 1. Torsemide 20 mg daily. 2. Tamsulosin 0.4 mg daily. 3. Albuterol as needed. 4. Cartia XT 180 mg daily. 5. Zubsolv 5.7/1.4 mg sublingual two times a day. 6. Diltiazem 30 mg 3 times a day. 7. Warfarin 2 mg daily. 8. Potassium chloride 10 mEq twice a day. REVIEW OF SYSTEMS: CONSTITUTIONAL: No fevers. No chills. EYES: No double vision or blurred vision. ENT: No congestion, drainage, or sore throat. He does have very dry throat with a lot of dry mucus in there when he tries to get up each morning, currently worsened by the BiPAP mask. CARDIOVASCULAR: No chest pain. No palpitations or racing heart. PULMONARY: See HPI. His chronic cough is well productive of thick mucus plugs each morning, no changes to this. Wheezing and shortness of breath are much better on the BiPAP. GASTROINTESTINAL: No abdominal pain. No nausea or vomiting. He has a history of constipation, but since starting MiraLAX daily, he has had resolution of that. GENITOURINARY: No dysuria or hematuria. MUSCULOSKELETAL: No muscle aches or joint pain. SKIN: No new rashes or lesions noted. He does have chronic dry skin and has scaling of his skin regularly on inspection on his lower extremities. NEUROLOGIC: No numbness, tingling, or focal weakness. PHYSICAL EXAMINATION: VITAL SIGNS: Blood pressure 126/74, pulse 103, respirations 19, O2 saturation 100% on BiPAP, and temperature 98.1. GENERAL: This is a well-developed, thin white male, in mild respiratory distress, on the BiPAP, much more comfortable than he was earlier. HEENT: Pupils are equal, round, and reactive to light. Oropharynx dry without any exudate. NECK: Supple. No lymphadenopathy. No thyroid nodules or enlargement. No JVD. HEART: Irregularly irregular rhythm. Mildly tachycardic on and off. LUNGS: He has some occasional wheeze and just some decreased breath sounds bilaterally. No rhonchi. No focal findings. ABDOMEN: Soft, nontender to palpation. Normoactive bowel sounds. No hepatosplenomegaly or other masses. EXTREMITIES: No clubbing or cyanosis. He does have 2+ pitting edema up to his thighs and has some edema of his scrotum and lower part of his abdomen. SKIN: The patient has scaling of his skin on his lower extremities. No other rashes noted. No cellulitis. NEUROLOGIC: The patient is able to move all extremities equally with normal strength and normal sensation. No facial droop. PSYCHIATRIC: Alert and oriented x3. Normal mood and affect. LABORATORY DATA: White blood cell count 8.2, hemoglobin 8.7, hematocrit 29.5, platelet count 192. No neutrophilic predominance. He does have some elevated monocytes. Blood gas shows normal pH of 7.44 with an elevated pCO2 of 62 and pO2 of 73. Complete metabolic panel is notable for a potassium of 5.3, chloride of 93, bicarb of 36, anion gap is negative, BUN is elevated at 43, and creatinine is 1.83, which is elevated from his normal of 1 to 1.2 on his previous admissions. Glucose is 115, alkaline phosphatase 164, albumin is a little low at 3.3. The rest of the CMP was normal. Brain natriuretic peptide is elevated at 961, that is above his previous baseline, but lower than his last hospital admission when he was severely exacerbated and was up in the . Troponin was indeterminate at 0.046, unchanged on the recheck. CK-MB was negative. Lactic acid was negative. Chest x-ray; I did review the chest x-ray done in the emergency room along with the radiologist's report. It does show some findings worrisome for development of pneumonia in the left mid lung zone and possible linear nodular density in the right mid lung could be scarring versus recurrent pneumonia. EKG shows atrial fibrillation, initially rapid ventricular rate of 111. No significant ST changes. ASSESSMENT: 1. Acute on chronic hypoxic and hypercapnic respiratory failure. The patient is doing much better on the BiPAP, this is probably multifactorial, chronic obstructive pulmonary disease, possible pneumonia, and congestive heart failure. The patient did receive antibiotics in the emergency room. I will go ahead and add some nebs as well and we will start him on some prednisone also. We will have Dr. Bai consult as he has seen him before. We will continue the BiPAP in the ICU and we will wean off as tolerated. We will also continue the cefepime and vancomycin. 2. Chronic obstructive pulmonary disease exacerbation. 3. Pneumonia without any evidence of sepsis. 4. Systolic and diastolic congestive heart failure with severe aortic stenosis. The patient was given fluids in the emergency room. He appears to be actually volume overloaded, now to my exam. I am going to start him on IV Lasix 40 mg twice a day. We will need to keep a close eye on his creatinine with this. We will put him on a fluid-restricted diet. We will consult the patient's billboard erector helper, Dr. Willis. 5. Acute on chronic renal failure with hyperkalemia. We will hold potassium supplements. We will give Lasix and monitor creatinine closely. 6. Gastrointestinal prophylaxis, put the patient on Pepcid twice a day. 7. Deep venous thrombosis prophylaxis. The patient is already on warfarin. We will check an INR and continue warfarin in the hospital. CODE STATUS: I did discuss this with the patient, he is a full code. His medical decision maker is his son, Patric Verdugo. Job ID: [id number]
[2019-12-04] MEDS ORDERED: methylPREDNISolone Sod Succ 40 MG VIAL ONE (21:57)
[2019-12-04] MEDS ORDERED: Famotidine 20 MG TAB ONE (21:57)
[2019-12-04 22:53] LABS: Troponin I 0.022 ng/mL (< 0.028)
[2019-12-04] MEDS: methylPREDNISolone Sod Succ 40 MG VIAL IVP SCH (23:26)
[2019-12-05 03:01] VITALS: BMI 29.3
[2019-12-05] MEDS: Tamsulosin HCl 0.4 MG CAP PO SCH ×2 (03:41→21:01)
[2019-12-05] MEDS: Cefepime 2 GM in Sodium Chloride 0.9% 100 ML IVPB SCH ×2 (05:39→17:56)
[2019-12-05] MEDS: methylPREDNISolone Sod Succ 40 MG VIAL IVP SCH ×3 (05:40→17:56)
[2019-12-05] MEDS ORDERED: Furosemide 40 MG/4 ML VIAL SLOW IVP SCH (06:00)
[2019-12-05] MEDS: Polyethylene Glycol 3350 17 GM Packet PO SCH (07:54)
[2019-12-05 08:32] LABS: INR-International Normal Ratio 2.5; Prothrombin Time 26.6 SEC (12.0-14.7)
[2019-12-05 08:40] LABS: Anion Gap 13 mmol/L (10-20); BUN (Urea Nitrogen) 37 mg/dL (8.4-25.7); Calc. Creatinine Clearance 51 mL/min (70-130); Calcium 8.5 mg/dL (7.8-10.44); Carbon Dioxide 35 mmol/L (23-31); Chloride 97 mmol/L (98-107); Estimated GFR-MDRD 43; Glucose 140 mg/dL (83-110); Potassium 4.6 mmol/L (3.5-5.1); Sodium 140 mmol/L (136-145)
[2019-12-05 09:15] LABS: #Lymphocytes 0.7 thou/uL (1.20-3.40); #Monocytes 0.1 thou/uL (0.11-0.59); #Neutrophils 3.2 thou/uL (1.40-6.50); %Basophils 0.1 % (0.0-1.0); %Eosinophils 0.4 % (0.0-10.0); %Lymphocytes 17.6 % (21.0-51.0); %Monocytes 1.4 % (0.0-10.0); %Neutrophils 80.6 % (42.0-75.0); Elliptocytes SLIGHT = 2-5 cells (100X) (0-1/hpf); Hemoglobin 8.2 g/dL (14.0-18.0); Hypochromia MODERATE=16-30 cells (100X) (0-5/hpf); MDiff Complete? YES; Mean Corpuscular HGB CONC 29.5 g/dL (32.0-36.0); Mean Corpuscular Hemoglobin 25.9 pg (27.0-31.0); Mean Corpuscular Volume 87.7 fL (78.0-98.0); Mean Platelet Volume 8.4 fL (7.4-10.4); Ovalocytes SLIGHT = 2-5 cells (100X) (0-1/hpf); Platelet Count 161 thou/uL (130-400); Platelet Morphology Comment Appears Adequate; Polychromasia SLIGHT = 2-3 cells (100X) (0-2/hpf); RBC Distribution Width 15.5 % (11.5-14.5); Red Blood Cell (RBC) Count 3.16 mill/uL (4.70-6.10)
[2019-12-05] MEDS ORDERED: Digoxin 0.5 MG/2 ML AMP SLOW IVP SCH (10:15)
--- NOTE | 2019-12-05 10:29 | PRG ---
DATE OF SERVICE: 12/05/2019 SUBJECTIVE: Mr. Verdugo feels dramatically better than yesterday. He had a very good diuresis. He says last night his edema is better. OBJECTIVE: VITAL SIGNS: His blood pressure is 110/70, pulse is still rapid 110 to 130. LUNGS: Clear of any wheezing, but he has rhonchi. CARDIAC: Irregularly irregular. ABDOMEN: Looks like he probably has some ascites. Nontender. EXTREMITIES: There is a [id number] edema, but better than yesterday. ASSESSMENT: 1. Diastolic heart failure, improved. 2. Chronic atrial fibrillation. 3. Chronic obstructive pulmonary disease with CO2 retention. PLAN: 1. Give him one dose of Diamox. 2. Also, he is anemic. We will check iron levels. 3. We will add digoxin to help with rate control. Job ID: [id number]
[2019-12-05] MEDS: Vancomycin 1.5 GRAM/300 ML BAG 1.5 GM in Premix Bag 1 BAG IVPB SCH (11:33)
[2019-12-05] MEDS: Fentanyl 100 MCG/2 ML VIAL SLOW IVP PRN (11:33)
[2019-12-05 14:19] LABS: Magnesium 2.5 mg/dL (1.6-2.6); Potassium 4.9 mmol/L (3.5-5.1)
--- NOTE | 2019-12-05 15:50 | PDOC.HOSPP ---
- Subjective Encounter Date: 12/05/19 Encounter Time: 08:20 Subjective: Pt seen for followup re: respiratory failure. Denies chest pain. SOBOE+. - Objective Vital Signs & Weight: Vital Signs (12 hours) Temp Pulse Pulse Pulse Resp BP BP 12/05/19 13:57 100 20 12/05/19 11:32 113 H 12/05/19 11:30 97.7 F 100 20 12/05/19 09:32 112/61 117/53 L 12/05/19 08:47 112 H 113 H 117/66 132/69 12/05/19 07:45 97.5 F L 113 H 20 12/05/19 07:31 102 H 20 BP Pulse Ox Pulse Ox 12/05/19 13:57 12/05/19 11:32 12/05/19 11:30 114/54 L 92 L 12/05/19 09:32 95 12/05/19 08:47 90 L 12/05/19 07:45 121/65 93 L 12/05/19 07:31 92 L Weight Weight 222 lb 9.6 oz I&O: 12/04/19 12/05/19 12/06/19 06:59 06:59 06:59 Intake Total 350 Output Total 400 Balance -50 Result Diagrams: 12/05/19 08:00 12/05/19 13:05 Additional Labs: Labs and MARs reviewed by me EKG Reviewed by me: Yes (Tele; a. fib) Hospitalist ROS - Review of Systems Constitutional: reports: weakness. denies: fever, chills, sweats, malaise Respiratory: reports: SOB with excertion Cardiovascular: reports: other. denies: chest pain, palpitations, orthopnea, paroxysmal noc. dyspnea, edema, light headedness Gastrointestinal: denies: nausea, vomiting, abdominal pain, diarrhea, constipation, melena, hematochezia Genitourinary: denies: dysuria, frequency, incontinence, hematuria, retention Musculoskeletal: reports: back pain Skin: denies: rash, lesions, apple, bruising - Medication Medications: Active Medications Generic Name Dose Route Start Last Admin Trade Name Freq PRN Reason Stop Dose Admin Albuterol/Ipratropium 3 ml 12/05/19 01:00 12/05/19 13:57 Duoneb NEB 3 ml [id number] JONATHAN Administration Diltiazem HCl 30 mg 12/05/19 15:00 12/05/19 14:14 Cardizem PO 30 mg TID JONATHAN Administration Fentanyl 6.25 mcg 12/05/19 11:16 12/05/19 11:33 Sublimaze SLOW IVP 6.25 mcg Q6H PRN Administration Pain Cefepime HCl 2 gm/ Sodium 100 mls @ 200 mls/hr 12/05/19 05:00 12/05/19 05:39 Chloride IVPB 100 mls 0500,1700 JONATHAN Administration Vancomycin HCl 1.5 gm/ Device 300 mls @ 200 mls/hr 12/05/19 10:00 12/05/19 11 :33 IVPB 300 mls Q24HR JONATHAN Administration Methylprednisolone Sodium Succinate 40 mg 12/04/19 23:59 12/05/19 11:32 Solu-Medrol IVP 40 mg Q6HR JONATHAN Administration Polyethylene Glycol 17 gm 12/05/19 09:00 12/05/19 07:54 Miralax PO 17 gm DAILY JONATHAN Administration Tamsulosin HCl 0.4 mg 12/04/19 21:00 12/05/19 03:41 Flomax PO Not Given QPM JONATHAN - Exam General Appearance: NAD Eye: anicteric sclera ENT: moist mucosa Neck: supple Heart: no gallops, no rubs, normal peripheral pulses, irregular Respiratory - other findings: Serjio wheeze Gastrointestinal: soft, non-tender, non-distended, normal bowel sounds Extremities: 1+ LE edema Psychiatric: normal affect, normal behavior, A&O x 3 Hosp A/P (1) Acute on chronic respiratory failure with hypoxia and hypercapnia Code(s): J96.21 - ACUTE AND CHRONIC RESPIRATORY FAILURE WITH HYPOXIA; J96.22 - ACUTE AND CHRONIC RESPIRATORY FAILURE WITH HYPERCAPNIA Status: Acute (2) CHF exacerbation Code(s): I50.9 - HEART FAILURE, UNSPECIFIED Status: Acute Qualifiers: Heart failure type: diastolic Qualified Code(s): I50.33 - Acute on chronic diastolic (congestive) heart failure (3) COPD exacerbation Code(s): J44.1 - CHRONIC OBSTRUCTIVE PULMONARY DISEASE W (ACUTE) EXACERBATION Status: Acute (4) CAP (community acquired pneumonia) Code(s): J18.9 - PNEUMONIA, UNSPECIFIED ORGANISM Status: Acute (5) BPH (benign prostatic hyperplasia) Code(s): N40.0 - BENIGN PROSTATIC HYPERPLASIA WITHOUT LOWER URINRY TRACT SYMP Status: Chronic (6) Hypertension Code(s): I10 - ESSENTIAL (PRIMARY) HYPERTENSION Status: Chronic Qualifiers: Hypertension type: essential hypertension Qualified Code(s): I10 - Essential (primary) hypertension - Plan continue antibiotics, PT/OT, out of bed/ambulate Continue furosemide. Continue antibiotics, bronchodilators and steroids. HTN controlled. Pt to receive Diamox today. PRN fentanyl for pain.
[2019-12-05] MEDS ORDERED: acetaZOLAMIDE Sodium 500 MG in Sodium Chloride 0.9% 50 ML IVPB SCH (16:00)
[2019-12-05] MEDS: Warfarin Sodium 2 MG TAB PO SCH (17:56)
--- NOTE | 2019-12-05 20:25 | CON ---
DATE OF CONSULTATION: HISTORY OF PRESENT ILLNESS: Mr. Verdugo is a very pleasant gentleman with COPD. He says he presented with edema that was all the way up to his legs to his scrotum and was subsequently admitted to the hospital. He says he feels much better now that he is starting diuresis. PAST MEDICAL HISTORY: Remarkable for, 1. Diastolic heart failure. 2. Chronic hypoxemic respiratory failure on oxygen with COPD. 3. History of systolic congestive heart failure. 4. History of aortic stenosis. 5. Atrial fibrillation. 6. BPH. 7. Hypertension. 8. History of tPA. 9. History of degenerative arthritis. 10. History of hip replacement. 11. History of herniorrhaphy. SOCIAL HISTORY: He is nonsmoker, former drinker and smoker. He actually even abused heroin at some point, long time ago. He does have a son who makes his medical decisions. ALLERGIES: HE HAS NO DRUG ALLERGIES. MEDICATIONS: Have been reviewed. PHYSICAL EXAMINATION: GENERAL: He is in no distress. He is lying at about 20 degrees in bed. He is afebrile. VITAL SIGNS: Heart rate is 98, respiratory rate is 20, oximetry is 98% on 3 L, and blood pressure 122/58. He has a long rachel. HEENT: Pupils are equal. Sclerae are anicteric. Extraocular movements are intact. NECK: Supple. No lymphadenopathy. LUNGS: Remarkable for actually faint wheezes, which was surprising. I was guessing he was going to have just crackles at his lung bases. HEART: Regular rhythm. ABDOMEN: Soft and nontender. EXTREMITIES: Without clubbing or cyanosis. He does have edema that he says is improving. DIAGNOSTIC STUDIES: Chest radiograph shows a right effusion, patchy bilateral infiltrates. IMPRESSION: 1. Congestive heart failure. 2. Chronic obstructive pulmonary disease. 3. Slightly atypical presentation for chest radiograph for pulmonary edema. I agree with antibiotics. I would probably simplify them tomorrow, if his cultures remain negative. I will be happy to follow the other physicians caring for him. His steroid dosing can be decreased. TIME SPENT: This is a 50-minute consult, 50% of the time was spent on the unit coordinating care. Job ID: [id number]
[2019-12-05] MEDS: Famotidine 20 MG TAB PO SCH (21:02)
[2019-12-06] MEDS: methylPREDNISolone Sod Succ 40 MG VIAL IVP SCH ×4 (00:02→20:22)
[2019-12-06 05:01] LABS: BUN (Urea Nitrogen) 44 mg/dL (8.4-25.7); Calc. Creatinine Clearance 41 mL/min (70-130); Estimated GFR-MDRD 34
[2019-12-06 05:02] LABS: Calcium 8.5 mg/dL (7.8-10.44); Glucose 161 mg/dL (83-110); Iron 11 ug/dL (65-175)
[2019-12-06 05:10] LABS: Anion Gap 14 mmol/L (10-20); Carbon Dioxide 37 mmol/L (23-31); Chloride 95 mmol/L (98-107); Potassium 4.6 mmol/L (3.5-5.1); Sodium 141 mmol/L (136-145)
[2019-12-06] MEDS: Cefepime 2 GM in Sodium Chloride 0.9% 100 ML IVPB SCH ×2 (05:33→19:43)
[2019-12-06] MEDS ORDERED: Furosemide 40 MG/4 ML VIAL SLOW IVP SCH (09:00)
--- NOTE | 2019-12-06 09:43 | PRG ---
DATE OF SERVICE: 12/06/2019 SUBJECTIVE: Mr. Verdugo still is extremely edematous. Did not really have much response to acetazolamide. He is still short of breath. OBJECTIVE: VITAL SIGNS: Blood pressure is reported at 100/49. Pulse is 70, it is irregularly irregular. LUNGS: Clear anteriorly, laterally. CARDIAC: Irregularly irregular. ABDOMEN: Soft and nontender. EXTREMITIES: Severe edema. PERTINENT LABORATORY DATA: Hemoglobin is 8.2. His INR is 2.5. Creatinine is increased to 1.92. Ferritin level was 53. The BNP was 961. I reviewed the echocardiogram. To my interpretation, this was done last September, the ejection fraction was in the 30 % to 35% range. It looks like he has some degree of aortic stenosis. It is difficult to be precise about the degree of stenosis. The calculation was listed as severe, but the peak gradient is only about 18 mmHg and the mean gradient is 10 to 12. This could represent some element of low flow, low gradient aortic stenosis, but with such a low gradient, it is unclear whether any intervention would result in improved outcome. I think it is more likely to be mild to moderate aortic stenosis. ASSESSMENT: 1. Congestive heart failure, systolic and diastolic combined, proving to be refractory. 2. Renal function worsening. 3. Still extremely volume overload. PLAN: 1. We will need to continue to try to diurese. 2. He is on digoxin to try to help control the heart rate. We will try to minimize the Cardizem dose. 3. Unfortunately, prognosis appears unfavorable. Job ID: [id number] MTDD
[2019-12-06] MEDS: Digoxin 0.125 MG TAB PO SCH (09:53)
[2019-12-06] MEDS: Iron, Sodium Ferric Gluconate 250 MG in Sodium Chloride 0.9% 100 ML IVPB SCH ×2 (09:54→20:21)
[2019-12-06] MEDS: Polyethylene Glycol 3350 17 GM Packet PO SCH (09:54)
[2019-12-06] MEDS: Potassium Chloride 10 MEQ TAB PO SCH (09:55)
[2019-12-06] MEDS ORDERED: diphenhydrAMINE 50 MG/ML VIAL IVP SCH (11:00)
[2019-12-06] MEDS ORDERED: Vancomycin HCl 1 GM in Premix Bag 1 BAG IVPB SCH (11:00)
[2019-12-06] MEDS: Vancomycin 1.5 GRAM/300 ML BAG 1.5 GM in Premix Bag 1 BAG IVPB SCH (11:03)
--- NOTE | 2019-12-06 13:50 | PRG ---
DATE OF SERVICE: 12/06/2019 SUBJECTIVE: He is complaining of edema. He says overall he is breathing better since he got the diuretics. OBJECTIVE: VITAL SIGNS: Temperature 97.6, pulse 74, respirations 16, O2 saturations 92% on 3.5 L, blood pressure 103/58. HEENT: Unremarkable. NECK: No adenopathy or JVD. LUNGS: Diminished breath sounds in the bases. CARDIAC: S1 and S2. Regular. ABDOMEN: Edematous. PELVIC AND EXTREMITIES: Pelvic region and extremities also edematous. LABORATORY DATA: White blood cell count 4, hematocrit 27.7, and platelet count 161. INR 2.5. Sodium 141, potassium 4.6, BUN 44, creatinine 1.9, and glucose 161. ASSESSMENT: 1. Systolic/diastolic heart failure. 2. Chronic obstructive pulmonary disease, which is probably at baseline. PLAN: 1. Continue nebs. 2. Decrease steroid dose. 3. Continue diuretics. Job ID: [id number]
--- NOTE | 2019-12-06 18:12 | PDOC.HOSPP ---
- Subjective Encounter Date: 12/06/19 Encounter Time: 07:40 Subjective: Pt seen for followup re: acute on chronic hypoxic respiratory failure. Feels better today. Scrotal swelling has decreased. - Objective Vital Signs & Weight: Vital Signs (12 hours) Temp Pulse Resp BP Pulse Ox 12/06/19 15:11 98.4 F 103 H 18 121/58 L 92 L 12/06/19 12:30 74 16 91 L 12/06/19 11:28 97.6 F 91 18 103/58 L 97 12/06/19 09:53 112 H 12/06/19 08:03 97.7 F 71 18 100/49 L 4 L 12/06/19 07:29 90 L 12/06/19 07:27 85 16 90 L Weight Weight 221 lb 6.4 oz I&O: 12/05/19 12/06/19 12/07/19 06:59 06:59 06:59 Intake Total 2170 Output Total 400 Balance 1770 Result Diagrams: 12/05/19 08:00 12/06/19 04:22 Additional Labs: Labs and MARs reviewed by me EKG Reviewed by me: Yes (Tele: NSR) Hospitalist ROS - Review of Systems Constitutional: denies: fever, chills, sweats, weakness, malaise Respiratory: reports: cough, dry, SOB with excertion. denies: shortness of breath, hemoptysis, pleuritic pain, sputum, wheezing Cardiovascular: denies: chest pain, palpitations, orthopnea, paroxysmal noc. dyspnea, edema, light headedness Gastrointestinal: denies: nausea, vomiting, abdominal pain, diarrhea, constipation, melena, hematochezia Genitourinary: reports: other (scrotal swelling) Skin: denies: rash, lesions, apple, bruising - Medication Medications: Active Medications Generic Name Dose Route Start Last Admin Trade Name Freq PRN Reason Stop Dose Admin Albuterol/Ipratropium 3 ml 12/05/19 01:00 12/06/19 12:30 Duoneb NEB 3 ml [id number] JONATHAN Administration Digoxin 0.125 mg 12/06/19 09:00 12/06/19 09:53 Lanoxin PO 0.125 mg DAILY JONATHAN Administration Diltiazem HCl 30 mg 12/05/19 15:00 12/06/19 15:18 Cardizem PO 30 mg TID JONATHAN Administration Famotidine 20 mg 12/05/19 21:00 12/05/19 21:02 Pepcid PO 20 mg QPM JONATHAN Administration Fentanyl 6.25 mcg 12/05/19 11:16 12/05/19 11:33 Sublimaze SLOW IVP 6.25 mcg Q6H PRN Administration Pain Cefepime HCl 2 gm/ Sodium 100 mls @ 200 mls/hr 12/05/19 05:00 12/06/19 05:33 Chloride IVPB 100 mls 0500,1700 JONATHAN Administration Ferric Sodium Gluconate 120 mls @ 60 mls/hr 12/06/19 09:00 12/06/19 09:54 Complex 250 mg/ Sodium IVPB 12/06/19 21:01 120 mls Chloride Q12HR JONATHAN Administration Vancomycin HCl 1 gm/ Device 200 mls @ 200 mls/hr 12/06/19 11:00 12/06/19 11: 31 IVPB 200 mls Q24HR JONATHAN Administration Ondansetron HCl 4 mg 12/04/19 19:33 12/05/19 22:00 Zofran IVP 4 mg Q6H PRN Administration Nausea/Vomiting Polyethylene Glycol 17 gm 12/05/19 09:00 12/06/19 09:54 Miralax PO Not Given DAILY [facility] Potassium Chloride 10 meq 12/06/19 09:00 12/06/19 09:55 Klor-Con 10 PO 10 meq DAILY JONATHAN Administration Tamsulosin HCl 0.4 mg 12/04/19 21:00 12/05/19 21:01 Flomax PO 0.4 mg QPM JONATHAN Administration Warfarin Sodium 2 mg 12/05/19 17:00 12/05/19 17:56 Coumadin PO 2 mg 1700 JONATHAN Administration - Exam General Appearance: NAD Eye: anicteric sclera ENT: moist mucosa Neck: supple, symmetric, no thyromegaly, JVD Heart: no gallops, no rubs, normal peripheral pulses, irregular Respiratory: no wheezes, normal chest expansion, no tachypnea, rales Gastrointestinal: soft, non-tender, non-distended, normal bowel sounds Extremities: 2+ LE edema Musculoskeletal: no muscle wasting Psychiatric: normal affect, normal behavior, A&O x 3 Hosp A/P (1) Acute on chronic respiratory failure with hypoxia and hypercapnia Code(s): J96.21 - ACUTE AND CHRONIC RESPIRATORY FAILURE WITH HYPOXIA; J96.22 - ACUTE AND CHRONIC RESPIRATORY FAILURE WITH HYPERCAPNIA Status: Acute (2) CHF exacerbation Code(s): I50.9 - HEART FAILURE, UNSPECIFIED Status: Acute Qualifiers: Heart failure type: diastolic Qualified Code(s): I50.33 - Acute on chronic diastolic (congestive) heart failure (3) COPD exacerbation Code(s): J44.1 - CHRONIC OBSTRUCTIVE PULMONARY DISEASE W (ACUTE) EXACERBATION Status: Acute (4) CAP (community acquired pneumonia) Code(s): J18.9 - PNEUMONIA, UNSPECIFIED ORGANISM Status: Acute (5) BPH (benign prostatic hyperplasia) Code(s): N40.0 - BENIGN PROSTATIC HYPERPLASIA WITHOUT LOWER URINRY TRACT SYMP Status: Chronic (6) Hypertension Code(s): I10 - ESSENTIAL (PRIMARY) HYPERTENSION Status: Chronic Qualifiers: Hypertension type: essential hypertension Qualified Code(s): I10 - Essential (primary) hypertension - Plan Continue furosemide.= for CHF exacerbation. Continue antibiotics, bronchodilators and steroids for COPD exacerbation. HTN controlled. Pt to receive IV iron infusion. Continue PRN fentanyl for pain. CKD stage 3 worse, likely due to diuresis. Follow creatinine.
[2019-12-06] MEDS: Warfarin Sodium 2 MG TAB PO SCH (19:42)
[2019-12-06 20:12] LABS: Magnesium 2.6 mg/dL (1.6-2.6); Potassium 4.8 mmol/L (3.5-5.1)
[2019-12-06] MEDS: Tamsulosin HCl 0.4 MG CAP PO SCH (20:23)
[2019-12-06] MEDS: Famotidine 20 MG TAB PO SCH (20:23)
[2019-12-07 05:09] LABS: INR-International Normal Ratio 3.3; Prothrombin Time 33.4 SEC (12.0-14.7)
[2019-12-07 05:12] LABS: Anion Gap 14 mmol/L (10-20); BUN (Urea Nitrogen) 59 mg/dL (8.4-25.7); Calc. Creatinine Clearance 39 mL/min (70-130); Calcium 8.9 mg/dL (7.8-10.44); Carbon Dioxide 31 mmol/L (23-31); Chloride 96 mmol/L (98-107); Estimated GFR-MDRD 32; Glucose 144 mg/dL (83-110); Potassium 5.1 mmol/L (3.5-5.1); Sodium 136 mmol/L (136-145)
[2019-12-07] MEDS: Cefepime 2 GM in Sodium Chloride 0.9% 100 ML IVPB SCH ×2 (05:37→16:45)
[2019-12-07 05:56] LABS: #Lymphocytes 0.6 thou/uL (1.20-3.40); #Monocytes 0.3 thou/uL (0.11-0.59); #Neutrophils 4.6 thou/uL (1.40-6.50); %Eosinophils 0.5 % (0.0-10.0); %Lymphocytes 10.5 % (21.0-51.0); %Monocytes 5.6 % (0.0-10.0); %Neutrophils 83.5 % (42.0-75.0); Elliptocytes SLIGHT = 2-5 cells (100X) (0-1/hpf); Hemoglobin 8.1 g/dL (14.0-18.0); Hypochromia MODERATE=16-30 cells (100X) (0-5/hpf); MDiff Complete? YES; Mean Corpuscular HGB CONC 28.7 g/dL (32.0-36.0); Mean Corpuscular Hemoglobin 25.2 pg (27.0-31.0); Mean Corpuscular Volume 87.6 fL (78.0-98.0); Mean Platelet Volume 8.6 fL (7.4-10.4); Platelet Count 162 thou/uL (130-400); RBC Distribution Width 15.6 % (11.5-14.5); White Blood Cell (WBC) Count 5.6 thou/uL (4.8-10.8)
[2019-12-07] MEDS ORDERED: Furosemide 40 MG/4 ML VIAL SLOW IVP SCH (06:45)
[2019-12-07] MEDS: Digoxin 0.125 MG TAB PO SCH (08:43)
[2019-12-07] MEDS: Polyethylene Glycol 3350 17 GM Packet PO SCH (08:44)
[2019-12-07] MEDS: methylPREDNISolone Sod Succ 40 MG VIAL IVP SCH (08:44)
[2019-12-07] MEDS: Potassium Chloride 10 MEQ TAB PO SCH (08:44)
--- NOTE | 2019-12-07 10:01 | PRG ---
DATE OF SERVICE: 12/07/2019 SUBJECTIVE: He is in good spirits today. He had no acute complaints. His breathing is better. OBJECTIVE: VITAL SIGNS: Temperature 97.4, pulse 72, respirations 22, O2 saturation 95% on 3 L, blood pressure 127/60. HEENT: Unremarkable. NECK: No adenopathy or JVD. CHEST: Fairly clear anteriorly. CARDIAC: S1 and S2 regular. No murmur. ABDOMEN: Soft. EXTREMITIES: No edema. LABORATORY DATA: White blood cell count 5.6, hematocrit 28.1, and platelet count 162. Sodium 136, potassium 5.1, BUN 59, creatinine 1.9, and glucose 144. ASSESSMENT: 1. Stable severe chronic obstructive pulmonary disease. 2. Systolic/diastolic heart failure. PLAN: 1. Finish out antibiotics-7 days of therapy should be appropriate. 2. Change to oral steroids. 3. Hopefully, able to go home early next week. Job ID: [id number]
[2019-12-07 10:19] LABS: Vancomycin, Random 22.4 ug/mL (See Comment)
[2019-12-07 12:19] LABS: Bacteria/HPF None Seen HPF (None Seen); Bilirubin Negative (Negative); Blood, Urine Negative (Negative); Clarity Clear (Clear); Glucose, Urine (Dipstick) Normal (Negative); Leukocyte Negative Leu/uL (Negative); Nitrite Negative (Negative); Protein, Urine (Dipstick) Negative (Neg-Trace); RBC/HPF 0-3 HPF (0-3); Squamous Epithelial 0-3 HPF (0-3); Urobilinogen Normal mg/dL (Less than 2); WBC/HPF 0-3 HPF (0-3)
[2019-12-07 12:20] LABS: Urine Culture Reflex No No
[2019-12-07 12:37] LABS: Creatinine, Urine 59.09 mg/dL (63-166); Protein, Urine Random Quant Less than 10 mg/dL (1-14); Sodium, Urine Less than 20 mmol/L (Not Available); Urea Nitrogen, Random Urine 499 mg/dl
--- NOTE | 2019-12-07 14:00 | CON ---
DATE OF CONSULTATION: 12/07/2019 SERVICE: Nephrology. REASON FOR CONSULTATION: Acute on chronic renal failure. REQUESTING PHYSICIAN: Sam Womack MD HISTORY OF PRESENT ILLNESS: An 84-year-old male with known history of chronic systolic and diastolic heart failure, valvular heart disease, COPD admitted due to worsening shortness of breath as well as generalized edema. The patient was found to have acute respiratory failure with hypoxia and hypercarbia, requiring BiPAP initially. The patient was treated with diuretics with improvement. He, however, developed worsening with increasing creatinine to a peak of 1.99 today from a partha of 1.55, necessitating Nephrology consult. The patient has been getting escalating doses of diuretics since admission. Urine output initially improved, but currently the patient reports poor urine output. Shortness of breath also has improved. He, however, has significant edema, especially at the trunk. There is no history of fever or chest pain, nausea, or vomiting. PAST MEDICAL HISTORY: 1. Chronic respiratory failure, on home oxygen. 2. COPD. 3. Chronic systolic and diastolic heart failure. 4. Severe aortic stenosis. 5. Chronic atrial fibrillation, on chronic anticoagulation. 6. BPH. 7. Hypertension. 8. Prior history of TIA. 9. Arthritis. 10. Gastroesophageal reflux disease. 11. GI bleeding. 12. Hematochezia. PAST SURGICAL HISTORY: 1. Right hip replacement. 2. Hernia repair. FAMILY HISTORY: Reviewed, but noncontributory. No significant history of premature coronary artery disease, stroke, or cancer in family. SOCIAL HISTORY: The patient is a former heavy smoker, former chronic alcohol abuse, as well as recreational drug abuser. He, however, quit using heroin about . Stopped smoking or drinking alcohol in 2009. The patient lives by himself. He is a . ALLERGIES: NO KNOWN DRUG ALLERGIES REPORTED. PRIOR TO HOSPITAL MEDICATIONS: 1. Torsemide 20 mg daily. 2. Flomax 0.4 mg daily. 3. Albuterol as needed. 4. Cartia XT 180 mg p.o. daily. 5. Zubsolv 5.7/1.4 mg sublingual two times daily. 6. Diltiazem 30 mg two times a day. 7. Warfarin 2 mg daily. 8. Potassium chloride 10 mEq twice a day. CURRENT HOSPITAL MEDICATIONS: 1. Cefepime 2 g b.i.d. 2. Vancomycin 1 g daily. 3. Buprenorphine/hydrochlorothiazide/naloxone one tablet p.o. b.i.d. 4. Digoxin 0.125 mg p.o. daily. 5. Diltiazem 30 mg p.o. b.i.d. 6. Lasix 20 mg IV b.i.d. 7. DuoNeb q.6 hours p.r.n. 8. Prednisone 20 mg IV b.i.d. 9. MiraLAX 17 g daily. 10. Potassium chloride 10 mEq p.o. daily. 11. Flomax 0.4 mg p.o. daily. 12. Warfarin 2 mg p.o. daily. PHYSICAL EXAMINATION: VITAL SIGNS: Temperature 97.4, pulse 72, respiratory rate 22, SpO2 95% on room air, blood pressure is 127/60. GENERAL: Obese elderly male, in mild respiratory distress. Afebrile. Anicteric. Acyanotic. HEENT: Normocephalic, atraumatic. Oral mucosa is mildly dry. NECK: Supple with no obvious JVD. CARDIOVASCULAR: Irregular rhythm and rate with normal heart sounds one and two. Soft systolic murmur noted. RESPIRATORY: Fair air entry bilateral with some transmitted breath sounds. Work of breathing is mildly increased. Few scattered rhonchi noted. GI: Obese, soft, nontender with moderate abdominal wall edema. UROGENITAL: Scrotal edema noted. EXTREMITIES: [id number] bilateral thigh edema as well as mild bilateral leg edema noted. No erythema appreciated. 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 Cranial nerves 2 through 12 are grossly intact. DIAGNOSTIC DATA: CBC showed WBC count of 5.6, hemoglobin of 8.1, MCV of 87.6, platelets of 162. Coagulation panel showed PT 33.4, INR 3.3. BMP showed sodium 136, potassium 5.1, chloride 96, CO2 31, BUN 59, creatinine 1.99, glucose 144, calcium 8.9. ASSESSMENT: 1. Acute kidney injury: Due to hemodynamic factors related to volume depletion from aggressive diuretics as well as some components from cardiorenal syndrome. The patient had decreased systolic function as well as valvular heart disease. 2. Chronic kidney disease stage 4: Due to cardiorenal syndrome and chronic diuretic therapy. 3. Anasarca: Etiology is unclear. Seems to be multifactorial from congestive heart failure, valvular heart disease, as well as chronic kidney disease. The patient had longstanding history of alcohol abuse, making cirrhosis a possibility. Liver enzymes, however, are unremarkable. 4. Hypertension: Blood pressure control is acceptable. PLAN: 1. Hence the positive blood culture with coagulase-negative Staph x2 strain is most likely contaminant, we will go ahead and discontinue vancomycin. 2. We will get urinalysis as well as urine electrolytes. 3. We will start the patient on albumin infusion given that BUN and creatinine are elevated consistent with intravascular contraction and azotemia. 4. Further treatment to follow depending on hospital course and review of other electrolytes. 5. We will also get liver ultrasounds. Many thanks for involving us in the care of this patient. We will follow along with you. Job ID: [id number]
--- NOTE | 2019-12-07 14:05 | PDOC.HOSPP ---
- Subjective Encounter Date: 12/07/19 Encounter Time: 07:40 Subjective: Pt seen for followup re: acute on chronic hypoxic respiratory failure. Feels better. - Objective Vital Signs & Weight: Vital Signs (12 hours) Temp Pulse Resp BP Pulse Ox 12/07/19 11:37 98 108/63 12/07/19 08:43 72 12/07/19 07:47 95 12/07/19 07:35 97.4 F L 72 22 H 127/60 95 12/07/19 06:17 95 12/07/19 04:00 97.5 F L 62 20 119/64 95 Weight Weight 221 lb 4 oz I&O: 12/06/19 12/07/19 12/08/19 06:59 06:59 06:59 Intake Total 2170 720 Output Total 400 Balance 1770 720 Result Diagrams: 12/07/19 04:46 12/07/19 04:46 Additional Labs: Labs and MARs reviewed by me EKG Reviewed by me: Yes (Tele: a. fib) Hospitalist ROS - Review of Systems Constitutional: denies: fever, chills, sweats, weakness, malaise Respiratory: reports: cough, SOB with excertion, sputum. denies: shortness of breath, hemoptysis, pleuritic pain, wheezing Cardiovascular: denies: chest pain, palpitations, orthopnea, paroxysmal noc. dyspnea, edema, light headedness Gastrointestinal: denies: nausea, vomiting, abdominal pain, diarrhea, constipation, melena, hematochezia Genitourinary: denies: dysuria, frequency, incontinence, hematuria, retention - Medication Medications: Active Medications Generic Name Dose Route Start Last Admin Trade Name Ron PRN Reason Stop Dose Admin Albuterol/Ipratropium 3 ml 12/05/19 01:12/07/19 10:16 Duoneb NEB 3 ml [id number] JONATHAN Administration Digoxin 0.125 mg 12/06/19 09:00 12/07/19 08:43 Lanoxin PO 0.125 mg DAILY JONATHAN Administration Diltiazem HCl 30 mg 12/05/19 15:00 12/07/19 08:43 Cardizem PO 30 mg TID JONATHAN Administration Famotidine 20 mg 12/05/19 21:00 12/06/19 20:23 Pepcid PO 20 mg QPM JONATHAN Administration Fentanyl 6.25 mcg 12/05/19 11:16 12/05/19 11:33 Sublimaze SLOW IVP 6.25 mcg Q6H PRN Administration Pain Cefepime HCl 2 gm/ Sodium 100 mls @ 200 mls/hr 12/05/19 05:00 12/07/19 05:37 Chloride IVPB 100 mls 0500,1700 JONATHAN Administration Ondansetron HCl 4 mg 12/04/19 19:33 12/05/19 22:00 Zofran IVP 4 mg Q6H PRN Administration Nausea/Vomiting Polyethylene Glycol 17 gm 12/05/19 09:00 12/07/19 08:44 Miralax PO Not Given DAILY JONATHAN Tamsulosin HCl 0.4 mg 12/04/19 21:00 12/06/19 20:23 Flomax PO 0.4 mg QPM JONATHAN Administration - Exam General Appearance: NAD Eye: anicteric sclera ENT: no oropharyngeal lesions Neck: supple, no thyromegaly, no lymphadenopathy, JVD Heart: no gallops, no rubs, normal peripheral pulses, irregular Respiratory: no wheezes, normal chest expansion, no tachypnea Respiratory - other findings: Serjio crackles Gastrointestinal: soft, non-tender, non-distended, normal bowel sounds Psychiatric: normal affect, normal behavior, oriented to person, oriented to place Hosp A/P (1) Acute on chronic respiratory failure with hypoxia and hypercapnia Code(s): J96.21 - ACUTE AND CHRONIC RESPIRATORY FAILURE WITH HYPOXIA; J96.22 - ACUTE AND CHRONIC RESPIRATORY FAILURE WITH HYPERCAPNIA Status: Acute (2) Acute worsening of stage 3 chronic kidney disease Code(s): N18.3 - CHRONIC KIDNEY DISEASE, STAGE 3 (MODERATE) Status: Acute (3) CHF exacerbation Code(s): I50.9 - HEART FAILURE, UNSPECIFIED Status: Acute Qualifiers: Heart failure type: diastolic Qualified Code(s): I50.33 - Acute on chronic diastolic (congestive) heart failure (4) COPD exacerbation Code(s): J44.1 - CHRONIC OBSTRUCTIVE PULMONARY DISEASE W (ACUTE) EXACERBATION Status: Acute (5) CAP (community acquired pneumonia) Code(s): J18.9 - PNEUMONIA, UNSPECIFIED ORGANISM Status: Acute (6) BPH (benign prostatic hyperplasia) Code(s): N40.0 - BENIGN PROSTATIC HYPERPLASIA WITHOUT LOWER URINRY TRACT SYMP Status: Chronic (7) Hypertension Code(s): I10 - ESSENTIAL (PRIMARY) HYPERTENSION Status: Chronic Qualifiers: Hypertension type: essential hypertension Qualified Code(s): I10 - Essential (primary) hypertension - Plan continue antibiotics, respiratory therapy, out of bed/ambulate CHF exacerbation improving. Consult nephrology re: ac on ch renal failure. Continue cefepime, bronchodilators and steroids.
[2019-12-07] MEDS: Albumin 25% 25 GM/100 ML BOT IVPB SCH ×2 (14:39→21:57)
[2019-12-07] MEDS: Furosemide 20 MG/2 ML VIAL SLOW IVP SCH (14:39)
--- NOTE | 2019-12-07 16:32 | PRG ---
DATE OF SERVICE: 12/07/2019 DISCUSSION: Mr. Verdugo is not diuresing well. He is very short of breath. When I came in the room, he is somnolent but he eventually arouses. No chest pain. OBJECTIVE: VITAL SIGNS: Blood pressure is 108/63, pulse is in the 80s, it is irregular. LUNGS: Clear. CARDIAC: Irregularly irregular. ABDOMEN: Severe ascites. EXTREMITIES: Severe edema. Echocardiogram shows severely dilated right ventricle, very hypokinetic dilated ventricle with a right heart failure. The left ventricular ejection fraction is only mildly diminished, mostly due to paradoxical septal motion. Ejection fraction 45% to 50%. ASSESSMENT: 1. Congestive heart failure, mostly right heart failure secondary to lung disease. 2. Severe ascites and edema. 3. Renal failure with a creatinine of 1.99. 4. Severe chronic obstructive pulmonary disease. PLAN: Continue diuretics, but the prognosis is very poor with right heart failure. There is really not much else could be done. He also has atrial fibrillation with a rate control. I talked to him somewhat about code status. He says he wants everything done. Unfortunately, the prognosis on this unfortunate gentleman is poor with very little other therapy to be offered. Job ID: [id number]
[2019-12-07] MEDS: Tamsulosin HCl 0.4 MG CAP PO SCH (21:27)
[2019-12-07] MEDS: Famotidine 20 MG TAB PO SCH (21:28)
[2019-12-08 04:50] LABS: #Lymphocytes 0.5 thou/uL (1.20-3.40); #Monocytes 0.5 thou/uL (0.11-0.59); #Neutrophils 5.2 thou/uL (1.40-6.50); %Eosinophils 0.1 % (0.0-10.0); %Lymphocytes 8.7 % (21.0-51.0); %Monocytes 8.4 % (0.0-10.0); %Neutrophils 82.8 % (42.0-75.0); Hemoglobin 7.8 g/dL (14.0-18.0); Mean Corpuscular HGB CONC 28.7 g/dL (32.0-36.0); Mean Corpuscular Hemoglobin 25.3 pg (27.0-31.0); Mean Corpuscular Volume 88.2 fL (78.0-98.0); Mean Platelet Volume 8.5 fL (7.4-10.4); Platelet Count 155 thou/uL (130-400); RBC Distribution Width 15.8 % (11.5-14.5); Red Blood Cell (RBC) Count 3.06 mill/uL (4.70-6.10); White Blood Cell (WBC) Count 6.3 thou/uL (4.8-10.8)
[2019-12-08 04:55] LABS: INR-International Normal Ratio 3.6; Prothrombin Time 35.8 SEC (12.0-14.7)
[2019-12-08 05:16] LABS: Anion Gap 13 mmol/L (10-20); BUN (Urea Nitrogen) 69 mg/dL (8.4-25.7); Calc. Creatinine Clearance 36 mL/min (70-130); Carbon Dioxide 36 mmol/L (23-31); Chloride 96 mmol/L (98-107); Estimated GFR-MDRD 29; Glucose 127 mg/dL (83-110); Potassium 5.3 mmol/L (3.5-5.1); Sodium 140 mmol/L (136-145)
[2019-12-08] MEDS: Furosemide 20 MG/2 ML VIAL SLOW IVP SCH (05:20)
[2019-12-08] MEDS: Albumin 25% 25 GM/100 ML BOT IVPB SCH (05:20)
[2019-12-08] MEDS: Cefepime 2 GM in Sodium Chloride 0.9% 100 ML IVPB SCH ×2 (05:20→18:33)
--- NOTE | 2019-12-08 08:14 | ULT ---
RIGHT UPPER QUADRANT ULTRASOUND: HISTORY: Anasarca. FINDINGS: Coarse, abnormal echogenicity throughout the liver with some minimal marginal liver nodularity, evide nce for extensive chronic liver disease, possibly some associated cirrhosis. Scattered ascites, parti cularly around the liver. Evidence for right pleural effusion. The gallbladder wall is markedly thick and shows edematous changes with some pericholecystic fluid but without overt gallstones. Negative M urphy sign. The right kidney is somewhat hyperechoic, evidence for nonspecific chronic renal disease. The common bile duct is 0.4 cm. IMPRESSION: 1. Ascites. 2. Very coarse liver echogenicity with some marginal nodularity, possibly some cirrhosis. 3. Marked gallbladder wall thickening and edematous changes without gallstones. 4. Negative House sign. 5. Diffuse right renal cortical echogenicity, evidence for nonspecific chronic renal disease. POS: [facility]
[2019-12-08] MEDS: Polyethylene Glycol 3350 17 GM Packet PO SCH (09:49)
[2019-12-08] MEDS: Digoxin 0.125 MG TAB PO SCH (09:49)
[2019-12-08] MEDS: predniSONE 20 MG TAB PO SCH (09:49)
--- NOTE | 2019-12-08 10:09 | RAD ---
PORTABLE CHEST ONE VIEW: HISTORY: Congestive heart failure. Questionable fluid overload. COMPARISON: 12/04/2019 FINDINGS: Monitor leads overly the chest. Bilateral pleural effusions and costophrenic angle blunting as well a s heterogeneous increased linear and interstitial markings noted bilaterally without a new confluent process. IMPRESSION: Overall stable appearing chest with bilateral pleural effusions and increased linear and interstitial markings throughout both lungs without new confluent pneumonia. POS: [facility]
--- NOTE | 2019-12-08 12:32 | PRG ---
DATE OF SERVICE: 12/08/2019 SERVICE: Nephrology. SUBJECTIVE: An 84-year-old male seen in followup for acute kidney injury and anasarca. The patient has been getting diuretics for acute on chronic congestive heart failure leading to increasing creatinine. He was started on albumin yesterday with improvement in urine output. No new problem. Denied nausea, vomiting, abdominal pain, or change in bowel habit. OBJECTIVE: VITAL SIGNS: Temperature 97.3, pulse 84, respiratory rate 20, SpO2 of 98% on 3L nasal cannula, blood pressure is 115/56. GENERAL: Chronically ill-looking male in mild respiratory distress. Afebrile, anicteric and acyanotic. HEENT: Normocephalic, atraumatic. Oral mucosa is moist. CARDIOVASCULAR: Irregular rhythm. Soft systolic murmur noted. RESPIRATORY: Fair air entry bilaterally with few bibasilar crackles, but no rhonchi. Work of breathing is mildly increased. GI: Obese with mild distention as well as abdominal wall edema. UROGENITAL: Scrotal swelling noted. EXTREMITIES: Moderate to severe bilateral thigh edema noted with mild bilateral leg edema. 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 DIAGNOSTIC DATA: CBC showed WBC count of 6.3, hemoglobin of 7.8, MCV of 88.2, platelet of 155. Coagulation panel showed PT 35.8, INR 3.6. BMP showed sodium 140, potassium 5.3, chloride 96, CO2 of 36, BUN 69, creatinine 2.16, glucose 127, calcium 9.0. Note that BUN was 59 yesterday and creatinine was 1.99. Urine electrolytes yesterday show total protein of less than 10, urine creatinine of 59 and urine sodium of less than 20, and urine urea nitrogen of 499 with both fractional excretion of sodium and urea consistent with prerenal etiology. Renal ultrasound performed earlier today showed very coarse liver echotexture with some marginal nodularity consistent with cirrhosis. Ascites also was noted as well as marked gallbladder wall thickening and edematous change without gallstone. Chest x-ray performed earlier today when compared to previous study of December 04, 2019, showed overall stable appearing chest with bilateral pleural effusions and increased linea and interstitial markings throughout both lungs with new confluent pneumonia. Echocardiogram performed on December 07, 2019, showed ejection fraction of 45 to 50 with paradoxical septal motion due to right heart overload. Atrial fibrillation as well as severely enlarged right ventricle cavity were noted. Mild aortic stenosis as well as severe tricuspid regurgitation and moderately elevated pulmonary artery pressures were also noted. ASSESSMENT: 1. Acute kidney injury: This most likely is due to prerenal etiology related to volume contraction from aggressive diuretic therapy. Fractional excretion of urea and sodium is consistent. 2. Chronic kidney disease stage 4. 3. Hyperkalemia: Due to potassium supplementation and chronic kidney disease. 4. Anasarca: Most likely due to liver cirrhosis with contribution from cardiac decompensation. Pulmonary hypertension also may be contributory. 5. Advanced chronic obstructive pulmonary disease. 6. Chronic respiratory failure, on home oxygen. PLAN: 1. We will discontinue diuretics for now. 2. We will continue IV albumin in this patient. Hepatorenal syndrome is a concern. We will monitor renal function with albumin volume expansion to renally rule out intravascular contraction alone or hepatorenal syndrome. 3. We will discontinue potassium supplementation as well. 4. We will monitor the patient closely to avoid fluid overload. 5. Oxygen supplementation to continue. 6. We will monitor urine output as well as daily weights. 7. Further treatment to follow depending on hospital course. 8. Recommend GI consult for new diagnosis of liver cirrhosis. Job ID: [id number]
[2019-12-08] MEDS ORDERED: Albumin 25% 25 GM/100 ML BOT IVPB SCH (14:00)
[2019-12-08 14:21] LABS: Albumin 3.6 g/dL (3.4-4.8)
[2019-12-08 14:22] LABS: Chloride 95 mmol/L (98-107); Potassium 4.6 mmol/L (3.5-5.1); Sodium 137 mmol/L (136-145)
[2019-12-08 14:23] LABS: Calcium 8.7 mg/dL (7.8-10.44); Globulin 3.1 g/dL (2.4-3.5); Glucose 125 mg/dL (83-110); Protein, Total 6.7 g/dL (5.8-8.1)
[2019-12-08 14:25] LABS: Anion Gap 16 mmol/L (10-20); Bilirubin, Total 0.6 mg/dL (0.2-1.2); Carbon Dioxide 31 mmol/L (23-31)
[2019-12-08 14:26] LABS: Alkaline Phosphatase 112 U/L (40-110)
[2019-12-08 14:27] LABS: BUN (Urea Nitrogen) 71 mg/dL (8.4-25.7); Calc. Creatinine Clearance 35 mL/min (70-130); Estimated GFR-MDRD 28
[2019-12-08 14:28] LABS: AST (SGOT) 21 U/L (5-34)
[2019-12-08 14:29] LABS: ALT (SGPT) 14 U/L (8-55)
--- NOTE | 2019-12-08 15:21 | CT ---
EXAM: Brain CT scan Without contrast: HISTORY: Weakness, altered mental status COMPARISON: 12/11/2017 FINDINGS: Slight stable irregularity of the nasal bone probably related to old injury. Minimal focal soft tissue fullness over the right parietal region, stable. Atrophy and chronic white matter ischemic change. No focal mass or midline shift. No intra or extra-axial hemorrhage. The visualized sinuses and mastoids are clear of acute process. IMPRESSION: No mass or bleed or other significant acute intracranial process.
[2019-12-08] MEDS ORDERED: Warfarin Sodium 1 MG TAB PO SCH ×2 (17:00)
[2019-12-08 18:22] LABS: Actual Bicarbonate (HCO3a) 35.4 mEq/L (22-28); Calcium, Ionized 1.14 mmol/L (1.12-1.30); Carboxyhemoglobin (COHb) 1.7 gm% (0.0-3.0); Hemoglobin (Hb) 7.9 g/dL (14.0-18.0); Potassium - ABG Lab 4.61 mmol/L (3.70-5.30); pH, Arterial 7.32 (7.35-7.45)
--- NOTE | 2019-12-08 18:45 | PDOC.HOSPP ---
- Subjective Encounter Date: 12/08/19 Encounter Time: 18:44 Subjective: Pt seen forfollowup re: acute on chronic hypoxic respiratory failure.Has beenlethargicsince this afternoon.Deniesany complaints when woken up. - Objective Vital Signs & Weight: Vital Signs (12 hours) Temp Pulse Resp BP Pulse Ox 12/08/19 16:00 98.1 F 81 20 118/56 L 97 12/08/19 14:39 90 14 12/08/19 12:23 98.2 F 93 22 H 116/60 100 12/08/19 09:49 75 12/08/19 07:58 97.3 F L 84 20 115/56 L 98 12/08/19 07:21 80 16 Weight Weight 221 lb 5 oz I&O: 12/07/19 12/08/19 12/09/19 06:59 06:59 06:59 Intake Total 720 1600 480 Output Total 575 760 Balance 720 1025 -280 Result Diagrams: 12/08/19 04:25 12/08/19 13:45 Additional Labs: Labs and MARs reviewed by me EKG Reviewed by me: Yes (Tele: gricelda hernandez) Hospitalist ROS - Review of Systems Cardiovascular: denies: chest pain, palpitations, orthopnea, paroxysmal noc. dyspnea, edema, light headedness Gastrointestinal: denies: nausea, vomiting, abdominal pain, diarrhea, constipation, melena, hematochezia - Medication Medications: Active Medications Generic Name Dose Route Start Last Admin Trade Name Freq PRN Reason Stop Dose Admin Albumin Human 25 gm 12/08/19 14:00 12/08/19 16:11 Albumin 25% IVPB 12/09/19 14:01 25 gm Q8H JONATHAN Administration Albuterol/Ipratropium 3 ml 12/05/19 01:00 12/08/19 14:39 Duoneb NEB 3 ml [id number] JONATHAN Administration Digoxin 0.125 mg 12/06/19 09:00 12/08/19 09:49 Lanoxin PO 0.125 mg DAILY JONATHAN Administration Diltiazem HCl 30 mg 12/05/19 15:00 12/08/19 16:38 Cardizem PO 30 mg TID JONATHAN Administration Famotidine 20 mg 12/05/19 21:00 12/07/19 21:28 Pepcid PO 20 mg QPM JONATHAN Administration Fentanyl 6.25 mcg 12/05/19 11:16 12/05/19 11:33 Sublimaze SLOW IVP 6.25 mcg Q6H PRN Administration Pain Cefepime HCl 2 gm/ Sodium 100 mls @ 200 mls/hr 12/05/19 05:00 12/08/19 18:33 Chloride IVPB 100 mls 0500,1700 JONATHAN Administration Ondansetron HCl 4 mg 12/04/19 19:33 12/05/19 22:00 Zofran IVP 4 mg Q6H PRN Administration Nausea/Vomiting Polyethylene Glycol 17 gm 12/05/19 09:00 12/08/19 09:49 Miralax PO Not Given DAILY JONATHAN Prednisone 40 mg 12/08/19 09:00 12/08/19 09:49 Prednisone PO 40 mg DAILY JONATHAN Administration Tamsulosin HCl 0.4 mg 12/04/19 21:00 12/07/19 21:27 Flomax PO 0.4 mg QPM JONATHAN Administration - Exam General - other findings: lethargic Eye: anicteric sclera ENT: normocephalic atraumatic Neck: supple Heart: irregular Respiratory - other findings: Serjio crackles Gastrointestinal: soft, non-tender Psychiatric: lethargic Hosp A/P (1) Acute on chronic respiratory failure with hypoxia and hypercapnia Code(s): J96.21 - ACUTE AND CHRONIC RESPIRATORY FAILURE WITH HYPOXIA; J96.22 - ACUTE AND CHRONIC RESPIRATORY FAILURE WITH HYPERCAPNIA Status: Acute (2) Acute worsening of stage 3 chronic kidney disease Code(s): N18.3 - CHRONIC KIDNEY DISEASE, STAGE 3 (MODERATE) Status: Acute (3) CHF exacerbation Code(s): I50.9 - HEART FAILURE, UNSPECIFIED Status: Acute Qualifiers: Heart failure type: diastolic Qualified Code(s): I50.33 - Acute on chronic diastolic (congestive) heart failure (4) COPD exacerbation Code(s): J44.1 - CHRONIC OBSTRUCTIVE PULMONARY DISEASE W (ACUTE) EXACERBATION Status: Acute (5) CAP (community acquired pneumonia) Code(s): J18.9 - PNEUMONIA, UNSPECIFIED ORGANISM Status: Acute (6) BPH (benign prostatic hyperplasia) Code(s): N40.0 - BENIGN PROSTATIC HYPERPLASIA WITHOUT LOWER URINRY TRACT SYMP Status: Chronic (7) Hypertension Code(s): I10 - ESSENTIAL (PRIMARY) HYPERTENSION Status: Chronic Qualifiers: Hypertension type: essential hypertension Qualified Code(s): I10 - Essential (primary) hypertension - Plan Furosemide antonina hold. Creatinine worsethan yesterday. ABG 7.31/70.4/33.1 [facility] Continue cefepime, bronchodilators and steroids. CT brain nilacute
[2019-12-08 18:50] LABS: CO2 Tension 70.4 mmHg (35.0-45.0)
[2019-12-08 18:51] LABS: O2 Tension (PaO2) 53.1 mmHg (> 60.0); Puncture Site LRA
[2019-12-08] MEDS: Famotidine 20 MG TAB PO SCH (21:15)
[2019-12-08] MEDS: Tamsulosin HCl 0.4 MG CAP PO SCH (21:15)
--- NOTE | 2019-12-08 22:30 | PRG ---
DATE OF SERVICE: 12/08/2019 SERVICE: Pulmonary Medicine. INTERVAL HISTORY: The patient is doing fine from respiratory standpoint. He ended up getting diuresed a little bit. With this, he developed a relative contraction alkalosis, though he remained acidotic. As a result, he ended up retaining a little bit more carbon dioxide and got a case of asterixis resulting in significant drops. Otherwise, he is doing fine, he denies having any shortness of breath or chest discomfort currently. He has taken a couple of naps today. Otherwise, I find him engaging, alert, and attentive. PHYSICAL EXAMINATION: VITAL SIGNS: Afebrile, pulse 81, blood pressure 118/56, respirations 20, and saturation 97% on 3 L nasal cannula. GENERAL: The patient is awake and alert, in no apparent distress. LUNGS: Wonderful air entry. There is a prolonged expiratory phase. Dependent crackles are present. HEART: Normal rate, regular. ABDOMEN: Soft, nontender, nondistended. Bowel sounds are positive. MUSCULOSKELETAL: No cyanosis or clubbing. There is diffuse pitting throughout. NEUROLOGIC: Grossly nonfocal. LABORATORY DATA: WBC 6.3, hemoglobin 7.8, and platelets 155,000. INR 3.6 and gently up-trending. PH 7.32, pCO2 of 70, pO2 of 53, corresponding to saturation of 86%. Creatinine 2.24 and gently up-trending, BUN 71, sodium 137. His bicarb was previously elevated at 31. Liver function studies are unremarkable. Ammonia is normal. Vancomycin trough is 22.4. Blood cultures are growing coag-negative Staph in 1 out of 2. IMAGING STUDIES: 1. CT of the brain demonstrates no mass or bleed or other significant acute intracranial abnormality. 2. Chest x-ray demonstrates bilateral pleural effusions, increased linear and interstitial markings throughout bilateral lung melendez. 3. Abdominal ultrasound demonstrates ascites and coarse liver echotexture, possibly suggestive of cirrhosis. Common bile duct is normal in caliber. 4. Echocardiogram demonstrates 45% to 50% ejection fraction with paradoxical septal motion due to right heart overload. Atrial fibrillation is noted. Right ventricular pressure is moderately elevated. ASSESSMENT: 1. Chronic obstructive pulmonary disease with acute exacerbation. 2. Zcwao-ji-[id number] systolic and diastolic heart failure. 3. Metabolic encephalopathy. DISCUSSION AND PLAN: I will continue his steroids, antibiotics, and nebulized medications. We will continue to diurese him gently down to euvolemia. He remains mildly volume overloaded. He has been moved to the [facility] so that noninvasive ventilation can be considered. My suspicion is that he has a metabolic encephalopathy process secondary to higher carbon dioxide level. This may be exacerbated by a relative contraction alkalosis. I will start doses of acetazolamide. Job ID: [id number] MTDD
[2019-12-09] MEDS: DOBUTamine 500 mg/250 ml 250 ML IVPB SCH (01:08)
[2019-12-09 04:16] LABS: #Lymphocytes 0.5 thou/uL (1.20-3.40); #Monocytes 0.6 thou/uL (0.11-0.59); #Neutrophils 5.5 thou/uL (1.40-6.50); %Eosinophils 0.1 % (0.0-10.0); %Lymphocytes 7.2 % (21.0-51.0); %Monocytes 8.9 % (0.0-10.0); %Neutrophils 83.8 % (42.0-75.0); Hemoglobin 7.4 g/dL (14.0-18.0); Mean Corpuscular HGB CONC 29.3 g/dL (32.0-36.0); Mean Corpuscular Hemoglobin 25.3 pg (27.0-31.0); Mean Corpuscular Volume 86.6 fL (78.0-98.0); Mean Platelet Volume 8.9 fL (7.4-10.4); Platelet Count 146 thou/uL (130-400); RBC Distribution Width 16.1 % (11.5-14.5); Red Blood Cell (RBC) Count 2.91 mill/uL (4.70-6.10); White Blood Cell (WBC) Count 6.6 thou/uL (4.8-10.8)
[2019-12-09 04:17] LABS: INR-International Normal Ratio 2.7; Prothrombin Time 28.4 SEC (12.0-14.7)
[2019-12-09 04:31] LABS: Albumin 3.3 g/dL (3.4-4.8); Anion Gap 14 mmol/L (10-20); BUN (Urea Nitrogen) 74 mg/dL (8.4-25.7); BUN/Creatinine Ratio 31.22; Calc. Creatinine Clearance 33 mL/min (70-130); Calcium 8.7 mg/dL (7.8-10.44); Carbon Dioxide 31 mmol/L (23-31); Chloride 97 mmol/L (98-107); Estimated GFR-MDRD 26; Glucose 133 mg/dL (83-110); Phosphorus 4.4 mg/dL (2.3-4.7); Potassium 4.4 mmol/L (3.5-5.1); Sodium 138 mmol/L (136-145)
[2019-12-09 04:39] LABS: Digoxin 0.82 ng/mL (0.8-2.0)
[2019-12-09] MEDS: Cefepime 2 GM in Sodium Chloride 0.9% 100 ML IVPB SCH ×2 (05:34→16:38)
[2019-12-09] MEDS ORDERED: acetaZOLAMIDE Sodium 500 MG in Sodium Chloride 0.9% 50 ML IVPB SCH (09:00)
[2019-12-09] MEDS: Digoxin 0.125 MG TAB PO SCH (10:30)
[2019-12-09] MEDS: predniSONE 20 MG TAB PO SCH (10:31)
[2019-12-09] MEDS: Polyethylene Glycol 3350 17 GM Packet PO SCH (10:31)
--- NOTE | 2019-12-09 12:50 | PDOC.HOSPP ---
- Subjective Encounter Date: 12/09/19 Encounter Time: 07:20 Subjective: Pt seen for followup re; acute on chronic hypercapnic and hypoxic respiratory failure. Feels better today. In IMCU today. - Objective Vital Signs & Weight: Vital Signs (12 hours) Temp Pulse Resp Pulse Ox 12/09/19 12:40 101 H 33 H 12/09/19 11:31 97.6 F 12/09/19 10:30 89 12/09/19 08:00 97 12/09/19 07:38 98.2 F 12/09/19 07:14 89 19 12/09/19 03:57 98.2 F 12/09/19 03:01 90 Weight Weight 221 lb 3.2 oz Most Recent Monitor Data Heart Rate from ECG 99 NIBP 140/56 NIBP BP-Mean 84 Respiration from ECG 23 SpO2 96 I&O: 12/08/19 12/09/19 12/10/19 06:59 06:59 06:59 Intake Total 1600 830 Output Total 575 1660 Balance 1025 -830 Result Diagrams: 12/09/19 03:58 12/09/19 03:58 Additional Labs: Labs and MARs reviewed by me EKG Reviewed by me: Yes (Tele: NSR) Hospitalist ROS - Review of Systems Respiratory: reports: cough, dry, SOB with excertion. denies: shortness of breath, hemoptysis, pleuritic pain, sputum, wheezing Gastrointestinal: denies: nausea, vomiting, abdominal pain, diarrhea, constipation, melena, hematochezia - Medication Medications: Active Medications Generic Name Dose Route Start Last Admin Trade Name Freq PRN Reason Stop Dose Admin Albuterol/Ipratropium 3 ml 12/05/19 01:00 12/09/19 12:40 Duoneb NEB 3 ml [id number] JONATHAN Administration Albuterol/Ipratropium 3 ml 12/04/19 19:37 12/08/19 22:24 Duoneb NEB 3 ml [id number] PRN Administration SOB &/or Wheezing Digoxin 0.125 mg 12/06/19 09:00 12/09/19 10:30 Lanoxin PO 0.125 mg DAILY JONATHAN Administration Diltiazem HCl 30 mg 12/05/19 15:00 12/09/19 10:31 Cardizem PO 30 mg TID JONATHAN Administration Famotidine 20 mg 12/05/19 21:00 12/08/19 21:15 Pepcid PO 20 mg QPM JONATHAN Administration Fentanyl 6.25 mcg 12/05/19 11:16 12/05/19 11:33 Sublimaze SLOW IVP 6.25 mcg Q6H PRN Administration Pain Cefepime HCl 2 gm/ Sodium 100 mls @ 200 mls/hr 12/05/19 05:00 12/09/19 05:34 Chloride IVPB 100 mls 0500,1700 JONATHAN Administration Dobutamine HCl/Dextrose 250 mls @ 7.529 mls/hr 12/08/19 22:00 12/09/19 01:08 Dobutamine 500 Mg/250 Ml IVPB 250 mls INF JONATHAN Administration Protocol 2.5 MCG/KG/MIN Ondansetron HCl 4 mg 12/04/19 19:33 12/05/19 22:00 Zofran IVP 4 mg Q6H PRN Administration Nausea/Vomiting Polyethylene Glycol 17 gm 12/05/19 09:00 12/09/19 10:31 Miralax PO 17 gm DAILY JONATHAN Administration Prednisone 40 mg 12/08/19 09:00 12/09/19 10:31 Prednisone PO 40 mg DAILY JONATHAN Administration Tamsulosin HCl 0.4 mg 12/04/19 21:00 12/08/19 21:15 Flomax PO 0.4 mg QPM JONATHAN Administration - Exam General Appearance: awake alert Eye: anicteric sclera ENT: moist mucosa Neck: supple Heart: no gallops, no rubs, irregular Respiratory - other findings: Serjio crackles Gastrointestinal: soft, non-tender Skin - other findings: bruises Psychiatric: normal affect, normal behavior Hosp A/P (1) Acute on chronic respiratory failure with hypoxia and hypercapnia Code(s): J96.21 - ACUTE AND CHRONIC RESPIRATORY FAILURE WITH HYPOXIA; J96.22 - ACUTE AND CHRONIC RESPIRATORY FAILURE WITH HYPERCAPNIA Status: Acute (2) Acute worsening of stage 3 chronic kidney disease Code(s): N18.3 - CHRONIC KIDNEY DISEASE, STAGE 3 (MODERATE) Status: Acute (3) CHF exacerbation Code(s): I50.9 - HEART FAILURE, UNSPECIFIED Status: Acute Qualifiers: Heart failure type: diastolic Qualified Code(s): I50.33 - Acute on chronic diastolic (congestive) heart failure (4) COPD exacerbation Code(s): J44.1 - CHRONIC OBSTRUCTIVE PULMONARY DISEASE W (ACUTE) EXACERBATION Status: Acute (5) CAP (community acquired pneumonia) Code(s): J18.9 - PNEUMONIA, UNSPECIFIED ORGANISM Status: Acute (6) BPH (benign prostatic hyperplasia) Code(s): N40.0 - BENIGN PROSTATIC HYPERPLASIA WITHOUT LOWER URINRY TRACT SYMP Status: Chronic (7) Hypertension Code(s): I10 - ESSENTIAL (PRIMARY) HYPERTENSION Status: Chronic Qualifiers: Hypertension type: essential hypertension Qualified Code(s): I10 - Essential (primary) hypertension - Plan Pt is on low dose dobutamine drip. Acetazolamide ordered. Furosemide is on hold. Creatinine 2.37 today. Pt used BiPAP last night. Continue cefepime, bronchodilators and steroids.
--- NOTE | 2019-12-09 16:11 | PRG ---
DATE OF SERVICE: 12/09/2019 SERVICE: Pulmonary Medicine. HISTORY: The patient is doing really well from respiratory standpoint. Denies any current chest discomfort, nausea, vomiting, fevers, or chills. Otherwise, there has been no change to his condition. His asterixis is much improved, he is able to hold his fork and sahu notes today. There has been no change to his condition. PHYSICAL EXAMINATION: VITAL SIGNS: Afebrile, pulse 99, blood pressure 140/56, respirations 23, saturation 96%, currently on 3 L nasal cannula. GENERAL: The patient is awake and alert, in no apparent distress. LUNGS: Wonderful air entry. No prolonged expiratory phase or wheezing is appreciated. Dependent crackles are noted. HEART: Normal rate, regular. ABDOMEN: Soft, nontender, nondistended. Bowel sounds are positive. MUSCULOSKELETAL: No cyanosis or clubbing. There is diffuse 2+ edema. NEUROLOGIC: Grossly nonfocal. LABORATORY DATA: WBC 6.6, hemoglobin 7.4 and stable, and platelets 146,000 and also stable. INR 2.7 and gently downtrending. Creatinine 2.37 and gently up trending, BUN 74. Basic metabolic profile is otherwise unremarkable. Albumin 3.3. ASSESSMENT: 1. Acute on chronic hypoxic and hypercapnic respiratory failure. 2. Chronic obstructive pulmonary disease with acute exacerbation, mild. 3. Acute on chronic systolic and diastolic heart failure. 4. Metabolic encephalopathy secondary to mild contraction resulting in increasing CO2 retention. DISCUSSION AND PLAN: I will continue the acetazolamide and I will back off on the Lasix for a day or two. We can resume this in a couple of days. The dobutamine is really to improve right ventricular systolic function. We will likely be able to resume diuretics tomorrow, but I would not schedule anything specifically. Pulmonary will continue to follow in this location. Job ID: [id number]
[2019-12-09] MEDS: BUPRENORPHINE HCL PO SCH ×3 (16:26→16:28)
[2019-12-09] MEDS: NALOXONE HCL PO SCH ×3 (16:26→16:28)
[2019-12-09] MEDS: Warfarin Sodium 1 MG TAB PO SCH (16:39)
[2019-12-09] MEDS: Fentanyl 100 MCG/2 ML VIAL SLOW IVP PRN (17:42)
--- NOTE | 2019-12-09 18:51 | PRG ---
DATE OF SERVICE: 12/09/2019 SERVICE: Nephrology. SUBJECTIVE: An 84-year-old male seen in followup for management of acute on chronic renal failure. The patient was admitted due to worsening generalized swelling and shortness of breath and started on diuretics. He developed worsening asterixis and was transferred to [facility]. Still having flapping tremor. Denied worsening shortness of breath. OBJECTIVE: VITAL SIGNS: Temperature 98.2, pulse 113, respiratory rate 18, SpO2 of 91% on nasal cannula, and blood pressure is 140/56. GENERAL: Elderly male, in some respiratory distress. Afebrile. Anicteric. Acyanotic. HEENT: Normocephalic and atraumatic. NECK: Supple with no JVD. CARDIOVASCULAR: Irregular rhythm and rate. Tachycardic with normal heart sounds 1 and 2. RESPIRATORY: Fair air entry bilaterally with scattered transmitted breath sounds. No obvious rhonchi were appreciated. Work of breathing, however, is increased. GI: Obese, enlarged with abdominal wall edema. UROGENITAL: Scrotal and penile edema noted. EXTREMITIES: [id number] bilateral thigh and back edema noted. Mild bilateral leg edema noted. TOWER SUPERVISOR: Conscious, alert, and oriented x3. Flapping tremor noted. DIAGNOSTIC DATA: CBC showed WBC count of 6.6, hemoglobin of 7.4, MCV of 86.6, and platelet of 146. Coagulation panel showed PT 28.4, INR 2.7. Renal function panel today showed sodium 138, potassium 4.4, chloride 97, CO2 of 31, BUN 74, creatinine 2.37, glucose 133, calcium 8.7, phosphorus 4.4, and albumin 3.3. ASSESSMENT: 1. Acute on chronic renal failure: This is due to intravascular contraction related to aggressive diuretics. Some component of hepatorenal syndrome cannot be ruled out given decompensated liver cirrhosis noted on abdominal ultrasound. 2. Chronic kidney disease, stage 3 to 4. 3. Decompensated liver cirrhosis with ascites. 4. Anasarca: Multifactorial from liver cirrhosis, chronic kidney disease, as well as pulmonary hypertension and congestive heart failure. 5. Acute on chronic respiratory failure with hypoxia and hypercarbia. 6. Chronic congestive heart failure. 7. Pulmonary hypertension. RECOMMENDATIONS: Deescalation of diuretics is recommended as well as expansion of intravascular space with albumin to rule in or rule out intravascular contraction alone or hepatorenal syndrome. If albumin alone does not help renal function, addition of octreotide may be helpful. Urine electrolytes both fractional excretion of urea and fractional excretion of sodium are all consistent with prerenal etiology. We will continue to monitor renal function. Job ID: [id number]
[2019-12-09] MEDS: Famotidine 20 MG TAB PO SCH (21:28)
[2019-12-09] MEDS: Tamsulosin HCl 0.4 MG CAP PO SCH (21:28)
[2019-12-10] MEDS: Cefepime 2 GM in Sodium Chloride 0.9% 100 ML IVPB SCH ×2 (04:48→17:41)
[2019-12-10] MEDS: DOBUTamine 500 mg/250 ml 250 ML IVPB SCH (04:49)
[2019-12-10 06:48] LABS: INR-International Normal Ratio 2.2; Prothrombin Time 24.5 SEC (12.0-14.7)
[2019-12-10 07:02] LABS: ALT (SGPT) 20 U/L (8-55); AST (SGOT) 24 U/L (5-34); Albumin 3.4 g/dL (3.4-4.8); Alkaline Phosphatase 101 U/L (40-110); BUN (Urea Nitrogen) 72 mg/dL (8.4-25.7); Bilirubin, Total 0.8 mg/dL (0.2-1.2); Calc. Creatinine Clearance 34 mL/min (70-130); Calcium 8.7 mg/dL (7.8-10.44); Estimated GFR-MDRD 28; Globulin 2.8 g/dL (2.4-3.5); Glucose 122 mg/dL (83-110); Protein, Total 6.2 g/dL (5.8-8.1)
[2019-12-10 07:11] LABS: Anion Gap 13 mmol/L (10-20); Carbon Dioxide 33 mmol/L (23-31); Chloride 99 mmol/L (98-107); Potassium 4.3 mmol/L (3.5-5.1); Sodium 141 mmol/L (136-145)
--- NOTE | 2019-12-10 08:31 | PRG ---
DATE OF SERVICE: 12/10/2019 SUBJECTIVE: Mr. Verdugo looks very discombobulated this morning. He is not talkative at all. OBJECTIVE: VITAL SIGNS: Temperature 97.4, pulse 84, blood pressure 125/64, O2 saturation 98% on BiPAP. HEENT: Unremarkable. NECK: No adenopathy or JVD. LUNGS: Fairly clear anteriorly. CARDIAC: S1 and S2 regular without audible murmur. ABDOMEN: Soft. EXTREMITIES: No edema. LABORATORY DATA: Sodium 141, potassium 4.3, chloride 99, CO2 of 33, BUN 72, creatinine 2.3, glucose 122. White blood cell count 6.6, hematocrit 25.2, platelet count 146. INR is 2.2. ASSESSMENT: 1. Acute respiratory failure on top of chronic respiratory failure, requiring noninvasive ventilation. 2. Acute on chronic systolic and diastolic heart failure. 3. Encephalopathy. PLAN: His nurse brought up the idea today that the patient could be suffering from narcotic withdrawal as he was taking Suboxone prior to his admission to the hospital. I believe that it is highly likely he is undergoing some form of narcotic withdrawal. In addition to continuing the steroids, nebulization treatments, and noninvasive ventilation, I will add Duragesic patch to give a more sustained level of opioids. He will continue the antibiotics. His prognosis is very guarded. Job ID: [id number]
[2019-12-10] MEDS ORDERED: DOBUTamine 500 mg/250 ml 250 ML IVPB SCH (08:51)
--- NOTE | 2019-12-10 09:02 | PRG ---
DATE OF SERVICE: 12/10/2019 SUBJECTIVE: Mr. Verdugo is on CPAP, not doing well, and it is hard to tell how oriented he is. The nurses said he was almost "manic" yesterday, talking nonstop. OBJECTIVE: VITAL SIGNS: The patient's blood pressure is 125/64, pulse is 80 to 90 with atrial fibrillation with frequent PVCs and bigeminy. PERTINENT LABORATORY DATA: Creatinine is 2.28. ASSESSMENT: 1. Congestive heart failure, mostly right-sided, likely due to severe lung disease with right ventricular failure. Only mild left ventricular dysfunction. 2. Stage 4 renal failure. 3. Premature ventricular complexes. 4. Chronic obstructive pulmonary disease. 5. Iron-deficiency anemia. PLAN: 1. Give intravenous iron. 2. Reduce dobutamine. 3. We will try to give him low-dose furosemide along with the acetazolamide. Job ID: [id number]
[2019-12-10 09:41] LABS: Actual Bicarbonate (HCO3a) 36.6 mEq/L (22-28); Base Excess (BEa) 10.3 mEq/L (-2.0 to +3.0); CO2 Tension 60.1 mmHg (35.0-45.0); Hemoglobin (Hb) 8.8 g/dL (14.0-18.0); O2 Tension (PaO2) 71.7 mmHg (> 60.0)
[2019-12-10 09:42] LABS: ALV-art Gradient 67.075 (0-20); Calcium, Ionized 1.19 mmol/L (1.12-1.30); Carboxyhemoglobin (COHb) 0.7 gm% (0.0-3.0); Puncture Site RRAD
[2019-12-10] MEDS: acetaZOLAMIDE Sodium 500 mg Vial IVP SCH (11:06)
[2019-12-10] MEDS: Digoxin 0.125 MG TAB PO SCH (11:06)
[2019-12-10] MEDS: Iron, Sodium Ferric Gluconate 250 MG in Sodium Chloride 0.9% 100 ML IVPB SCH ×2 (11:06→23:20)
[2019-12-10] MEDS: Spironolactone 25 MG TAB PO SCH (11:07)
[2019-12-10] MEDS: Polyethylene Glycol 3350 17 GM Packet PO SCH (11:07)
[2019-12-10] MEDS: predniSONE 20 MG TAB PO SCH (11:07)
[2019-12-10] MEDS: Sterile Water 10 ML VIAL IVP SCH (11:07)
[2019-12-10] MEDS: fentaNYL 50 mcg/hour Patch TD SCH (11:08)
--- NOTE | 2019-12-10 11:29 | PRG ---
DATE OF SERVICE: 12/10/2019 SERVICE: Nephrology. SUBJECTIVE: An 84-year-old male admitted with worsening edema and shortness of breath. Nephrology is following the patient for acute on chronic renal failure. The patient is a somewhat less responsive today than previous. He also developed worsening shortness of breath and was started on BiPAP. Urine output has improved significantly. He, however, continued to have generalized swelling. OBJECTIVE: VITAL SIGNS: Temperature 97.4, pulse 74, respiratory rate 17, SpO2 of 100% on BiPAP with FiO2 of 30%. Blood pressure is 125/64. GENERAL: Drowsy elderly male with BiPAP in place. Afebrile. Acyanotic. HEENT: Normocephalic, atraumatic. CARDIOVASCULAR: Irregular rhythm and rate with normal heart sounds 1 and 2. RESPIRATORY: BiPAP. Transmitted breath sounds with some crackles with no rhonchi. Work of breathing is mildly increased. GI: Obese, soft, with abdominal wall edema. UROGENITAL: Scrotal edema noted. EXTREMITIES: Pfhyltux-ki-cjeewo edema of the thighs noted as well as kzky-lh-sivujgii edema of both legs. TRANSPLANT NURSE: The patient is drowsy. Answers question appropriately. Face is symmetrical. DIAGNOSTIC DATA: CMP today showed sodium 141, potassium , chloride 99, CO2 of 33, BUN 72, creatinine 2.28, glucose 122, calcium 8.7, total bilirubin 0.8, AST 24, ALT 20, alkaline phosphatase 101, total protein 6.2, albumin 3.4, globulin 2.8. ASSESSMENT: 1. Acute kidney injury: Due to hemodynamic factors related to both intravascular contraction for excessive diuresis and cardiorenal syndrome. Component of hepatorenal cannot be ruled out. Creatinine is trending downwards with improved urine output with albumin and diuretics. 2. Anemia and chronic kidney disease. 3. Chronic kidney disease stage 3-4. 4. Acute on chronic systolic heart failure. 5. Decompensated liver cirrhosis with anasarca and ascites. 6. Anasarca. 7. Acute on chronic respiratory failure due to congestive heart failure and chronic obstructive pulmonary disease exacerbation. PLAN: 1. We will add spironolactone to current diuretics. 2. We will monitor for hyperkalemia. 3. We will monitor intake and output. 4. I agree with IV iron therapy. 5. We will also get ABG and ammonia given decreased responsiveness and drowsiness. BiPAP as per meter attendant. 6. Further treatment to follow depending on hospital course. Job ID: [id number]
[2019-12-10] MEDS: Furosemide 20 MG/2 ML VIAL SLOW IVP SCH (15:17)
--- NOTE | 2019-12-10 17:07 | PDOC.PALCO ---
Palliative Care Consult - Consult Details Requesting Physician: Dr Castaneda Reason for Consult: goals of care, advance directives assistance, complex decision-making Family Members Present: None - Pertinent HPI Mr Verdugo is an 84 year old male with significant history of COPD and CHF that has continued with a disease trajectory toward decline with a recent hospital stay in October for symptom exacerbation. O2 dependent at home, increase in lower extremity edema not resolved with recent increase in diuretic therapy. Review of records indicate patient was seeing physicians on 12/04/[address] Willis was noted to have work of breathing, hypoxic and was sent to the emergency room for evaluation. ER identified Co2 retention and pneumonia with elevated K and creatinine. Fluid initiated with abx therapy and BiPap and admitted to IMCU for higher level of care and medical management. Continues to have a fragile state and rising creatinine. - Social History Smoking Status: Former smoker Smoking: quit greater than 1 year Alcohol Use: other (in the past heavy drinker) Drug Use History: other (Previous drug use, not in recent years) Living Situation: independent, other (Patric Verdugo patient son lives close and is Medical Decision Maker) - Medications MAR Reviewed: Yes - Allergies Allergies/Adverse Reactions: Allergies Allergy/AdvReac Type Severity Reaction Status Date / Time levofloxacin Allergy Verified 12/05/19 03:05 - Subjective On Bi Pap, able to respond to question with shake of head. Mild confusion, labored respirations. - ROS Constitutional: distress, weakness Eyes: other (Denies vision changes) ENT: dry mouth, other (Negative for difficulity swallowing, ) Respiratory: shortness of breath, shortness of breath with extertion Cardiology: other (Negative for chest pain, palpitations) Gastrointestinal: other (negative for nausea/vomiting) - Objective Vital Signs: Vital Signs - Most Recent Temp Pulse Resp BP Pulse Ox 97.7 F 95 21 H 118/56 L 100 12/10/19 15:26 12/10/19 12:17 12/10/19 12:17 12/08/19 16:00 12/10/19 12:17 Palliative Performance Scale: 30 - Physical Exam Constitutional: ill appearing, mild distress HEENT: EOMI, moist MMs, PERRLA, sclera anicteric Respiratory: diminished lung sound, labored respirations Deviation from normal: Adventicious lung sounds more pronounced on expiration Cardiovascular: RRR Gastrointestinal: non-tender, positive bowel sounds Genitourinary: moya catheter Musculoskeletal: edema present Neurology: moves all 4 limbs, no focal deficits Skin: cap refill <2 seconds Deviation from normal: lethargic - Problem List (1) Palliative care encounter Code(s): Z51.5 - ENCOUNTER FOR PALLIATIVE CARE Current Visit: Yes Status: Acute (2) Physical deconditioning Code(s): R53.81 - OTHER MALAISE Current Visit: Yes Status: Acute (3) Acute worsening of stage 3 chronic kidney disease Code(s): N18.3 - CHRONIC KIDNEY DISEASE, STAGE 3 (MODERATE) Current Visit: Yes Status: Acute (4) CHF exacerbation Code(s): I50.9 - HEART FAILURE, UNSPECIFIED Current Visit: Yes Status: Acute Qualifiers: Heart failure type: diastolic Qualified Code(s): I50.33 - Acute on chronic diastolic (congestive) heart failure (5) Acute on chronic respiratory failure with hypoxia and hypercapnia Code(s): J96.21 - ACUTE AND CHRONIC RESPIRATORY FAILURE WITH HYPOXIA; J96.22 - ACUTE AND CHRONIC RESPIRATORY FAILURE WITH HYPERCAPNIA Current Visit: No Status: Acute (6) COPD exacerbation Code(s): J44.1 - CHRONIC OBSTRUCTIVE PULMONARY DISEASE W (ACUTE) EXACERBATION Current Visit: No Status: Acute (7) Community acquired bacterial pneumonia Code(s): J15.9 - UNSPECIFIED BACTERIAL PNEUMONIA Current Visit: No Status: Acute (8) Hypertension Code(s): I10 - ESSENTIAL (PRIMARY) HYPERTENSION Current Visit: No Status: Chronic Qualifiers: Hypertension type: essential hypertension Qualified Code(s): I10 - Essential (primary) hypertension - Plan/Recommendations Plan: Initial visit with patient, confused, on BiPAP and labored respirations. Will contact patient Son and attempt to set up family meeting to discuss Goal of Care. Patient is possible followed by Lisette BROWN with mobile care team, will reach out to her as well to gain insight to home situation, decline, interventions implemented in home setting from current admission and previous hospital stay to assist in determining realistic Goals of care inline with patient wishes and disease trajectory. Arnel Zacarias RNlayout designer also following patient, please see notes in Note section. If patient able to designate MPOA and not on record will have Rahel Diaz *Will revisit resuscitation status [60] minutes spent on this encounter with >50% of the time in counseling and coordination of care. Thank you for this very appropriate consult.
[2019-12-10] MEDS: Warfarin Sodium 1 MG TAB PO SCH (17:41)
--- NOTE | 2019-12-10 20:13 | PDOC.HOSPP ---
- Subjective Encounter Date: 12/10/19 Encounter Time: 10:40 Subjective: Pt seen for followup re: acute on chronic respiratory failure. States he feels ok. Lethargic. - Objective Vital Signs & Weight: Vital Signs (12 hours) Temp Pulse Resp Pulse Ox 12/10/19 20:05 99 12/10/19 20:04 89 25 H 99 12/10/19 20:00 97.6 F 12/10/19 15:26 97.7 F 12/10/19 12:17 95 21 H 100 12/10/19 11:40 97.2 F L 12/10/19 11:06 66 12/10/19 08:25 97.4 F L Weight Weight 220 lb 1.6 oz Most Recent Monitor Data Heart Rate from ECG 84 NIBP 125/64 NIBP BP-Mean 84 Respiration from ECG 10 SpO2 98 I&O: 12/09/19 12/10/19 12/11/19 06:59 06:59 06:59 Intake Total 830 1215 700 Output Total 1660 2750 1300 Balance -830 -1535 -600 Result Diagrams: 12/09/19 03:58 12/10/19 06:31 Additional Labs: Labs and MARs reviewed by me EKG Reviewed by me: Yes (Tele: NSR) Hospitalist ROS - Review of Systems Respiratory: denies: cough, dry, shortness of breath, hemoptysis, SOB with excertion, pleuritic pain, sputum, wheezing Cardiovascular: denies: chest pain, palpitations, orthopnea, paroxysmal noc. dyspnea, edema, light headedness - Medication Medications: Active Medications Generic Name Dose Route Start Last Admin Trade Name Freq PRN Reason Stop Dose Admin Acetazolamide Sodium 500 mg 12/10/19 09:00 12/10/19 11:06 Diamox IVP 500 mg DAILY JONATHAN Administration Albuterol/Ipratropium 3 ml 12/05/19 01:00 12/10/19 20:04 Duoneb NEB 3 ml [id number] JONATHAN Administration Albuterol/Ipratropium 3 ml 12/04/19 19:37 12/08/19 22:24 Duoneb NEB 3 ml [id number] PRN Administration SOB &/or Wheezing Digoxin 0.125 mg 12/06/19 09:00 12/10/19 11:06 Lanoxin PO 0.125 mg DAILY JONATHAN Administration Diltiazem HCl 30 mg 12/05/19 15:00 12/10/19 15:17 Cardizem PO 30 mg TID JONATHAN Administration Famotidine 20 mg 12/05/19 21:00 12/09/19 21:28 Pepcid PO 20 mg QPM JOANTHAN Administration Fentanyl 6.25 mcg 12/05/19 11:16 12/09/19 17:42 Sublimaze SLOW IVP 6.25 mcg Q6H PRN Administration Pain Fentanyl 50 mcg 12/10/19 09:00 12/10/19 11:08 Duragesic TD 50 mcg Q3D JONATHAN Administration Furosemide 20 mg 12/10/19 14:00 12/10/19 15:17 Lasix SLOW IVP 20 mg 0600,1400 JONATHAN Administration Cefepime HCl 2 gm/ Sodium 100 mls @ 200 mls/hr 12/05/19 05:00 12/10/19 17:41 Chloride IVPB 100 mls 0500,1700 JONATHAN Administration Ferric Sodium Gluconate 120 mls @ 60 mls/hr 12/10/19 09:00 12/10/19 11:06 Complex 250 mg/ Sodium IVPB 12/10/19 21:01 120 mls Chloride Q12HR JONATHAN Administration Ondansetron HCl 4 mg 12/04/19 19:33 12/09/19 15:09 Zofran Odt PO 4 mg Q6H PRN Administration Nausea/Vomiting Ondansetron HCl 4 mg 12/04/19 19:33 12/05/19 22:00 Zofran IVP 4 mg Q6H PRN Administration Nausea/Vomiting Polyethylene Glycol 17 gm 12/05/19 09:00 12/10/19 11:07 Miralax PO 17 gm DAILY JONATHAN Administration Prednisone 40 mg 12/08/19 09:00 12/10/19 11:07 Prednisone PO 40 mg DAILY JONATHAN Administration Spironolactone 50 mg 12/10/19 09:00 12/10/19 11:07 Aldactone PO 50 mg DAILY JONATHAN Administration Sterile Water 10 ml 12/10/19 09:00 12/10/19 11:07 Water For Injection IVP 10 ml DAILY JONATHAN Administration Tamsulosin HCl 0.4 mg 12/04/19 21:00 12/09/19 21:28 Flomax PO 0.4 mg QPM JONATHAN Administration Warfarin Sodium 1 mg 12/09/19 17:00 12/10/19 17:41 Coumadin PO 1 mg 1700 JONATHAN Administration - Exam General Appearance: NAD Eye: anicteric sclera ENT: moist mucosa Neck: supple Heart: RRR Respiratory: rales Gastrointestinal: soft Extremities: 2+ LE edema Psychiatric: lethargic Hosp A/P (1) Acute on chronic respiratory failure with hypoxia and hypercapnia Code(s): J96.21 - ACUTE AND CHRONIC RESPIRATORY FAILURE WITH HYPOXIA; J96.22 - ACUTE AND CHRONIC RESPIRATORY FAILURE WITH HYPERCAPNIA Status: Acute (2) Acute worsening of stage 3 chronic kidney disease Code(s): N18.3 - CHRONIC KIDNEY DISEASE, STAGE 3 (MODERATE) Status: Acute (3) CHF exacerbation Code(s): I50.9 - HEART FAILURE, UNSPECIFIED Status: Acute Qualifiers: Heart failure type: diastolic Qualified Code(s): I50.33 - Acute on chronic diastolic (congestive) heart failure (4) COPD exacerbation Code(s): J44.1 - CHRONIC OBSTRUCTIVE PULMONARY DISEASE W (ACUTE) EXACERBATION Status: Acute (5) CAP (community acquired pneumonia) Code(s): J18.9 - PNEUMONIA, UNSPECIFIED ORGANISM Status: Acute (6) BPH (benign prostatic hyperplasia) Code(s): N40.0 - BENIGN PROSTATIC HYPERPLASIA WITHOUT LOWER URINRY TRACT SYMP Status: Chronic (7) Hypertension Code(s): I10 - ESSENTIAL (PRIMARY) HYPERTENSION Status: Chronic Qualifiers: Hypertension type: essential hypertension Qualified Code(s): I10 - Essential (primary) hypertension - Plan Continue BiPAP PRN. Pt is on low dose dobutamine drip. Continue acetazolamide. Furosemide is on hold. Creatinine 2.28 today. Continue cefepime, bronchodilators and steroids. Prognosis guarded.
[2019-12-10] MEDS: Famotidine 20 MG TAB PO SCH (23:21)
[2019-12-10] MEDS: Tamsulosin HCl 0.4 MG CAP PO SCH (23:21)
[2019-12-11] MEDS: Cefepime 2 GM in Sodium Chloride 0.9% 100 ML IVPB SCH ×2 (06:18→18:38)
[2019-12-11] MEDS: Furosemide 20 MG/2 ML VIAL SLOW IVP SCH ×2 (06:18→13:14)
[2019-12-11 06:49] LABS: Albumin 3.4 g/dL (3.4-4.8); Anion Gap 12 mmol/L (10-20); BUN (Urea Nitrogen) 66 mg/dL (8.4-25.7); BUN/Creatinine Ratio 31.43; Calc. Creatinine Clearance 37 mL/min (70-130); Calcium 8.8 mg/dL (7.8-10.44); Carbon Dioxide 34 mmol/L (23-31); Chloride 101 mmol/L (98-107); Estimated GFR-MDRD 30; Glucose 132 mg/dL (83-110); Phosphorus 4.2 mg/dL (2.3-4.7); Potassium 4.1 mmol/L (3.5-5.1); Sodium 143 mmol/L (136-145)
[2019-12-11 07:07] LABS: INR-International Normal Ratio 2.2; Prothrombin Time 24.3 SEC (12.0-14.7)
--- NOTE | 2019-12-11 08:20 | PRG ---
DATE OF SERVICE: 12/11/2019 SUBJECTIVE: The patient remains on BiPAP. He is not very conversant, but does not appear to be in any overt distress. OBJECTIVE: VITAL SIGNS: On exam, temperature is 97.2, pulse 93, blood pressure 135/83, and O2 saturation 97%. HEENT: Unremarkable. NECK: No JVD. LUNGS: Fairly clear. CARDIAC: S1 and S2. Regular. ABDOMEN: Soft. EXTREMITIES: No edema. LABORATORY DATA: Sodium 143, potassium 4.1, chloride 101, CO2 of 34, BUN 66, creatinine 2.1, and glucose 132. ASSESSMENT: 1. Diastolic congestive heart failure. 2. Chronic obstructive pulmonary disease. 3. Acute on chronic respiratory failure. PLAN: 1. Try off BiPAP today and see how he tolerates. 2. Continue the antibiotics. 3. I will switch him over to IV steroids since I am not sure he is absorbing in the prednisone orally, we will follow. Job ID: [id number]
[2019-12-11] MEDS: acetaZOLAMIDE Sodium 500 mg Vial IVP SCH (09:39)
[2019-12-11] MEDS: Digoxin 0.125 MG TAB PO SCH (09:42)
[2019-12-11] MEDS: Spironolactone 25 MG TAB PO SCH (09:42)
[2019-12-11] MEDS: Sterile Water 10 ML VIAL IVP SCH (09:43)
--- NOTE | 2019-12-11 09:57 | PRG ---
DATE OF SERVICE: 12/11/2019 SUBJECTIVE: Mr. Verdugo is an 84-year-old white male, followed up for his acute kidney injury on top of his chronic renal failure. He has a hemodynamically-mediated renal dysfunction secondary to CHF. He is currently on IV dobutamine. Renal function is slowly improving. He is still short of breath. OBJECTIVE: VITAL SIGNS: Blood pressure is 135/83, heart rate 92, respiratory rate 13, pulse ox 99% on BiPAP. GENERAL: The patient is awake, supine, on BiPAP. SKIN: Adequate turgor. HEENT: He has a slightly pale conjunctivae. Anicteric sclerae. NECK: No neck mass. No carotid bruits. No JVD. CHEST: No deformities. LUNGS: Decreased breath sounds. Occasional basilar crackles. HEART: Normal sinus rhythm. No murmurs, no gallops, no rubs. ABDOMEN: Globular, soft, nontender. No masses. EXTREMITIES: Positive for edema. MEDICATIONS: Medications of December 11, 2019, was reviewed. LABORATORY DATA: Laboratories of December 11, 2019, white count 6.6, hemoglobin 7.4. Sodium 143, potassium 4.1, chloride 101, carbon dioxide 34, BUN 66, creatinine 2.1, glucose 132, calcium 8.8, phosphorus 4.2, albumin 3.4. ASSESSMENT AND PLAN: 1. Acute kidney injury on top of his chronic renal failure. Stabilizing renal function. Creatinine is slightly improved today. Currently on IV dobutamine. Continue to optimize cardiac status. There is no indication for any dialytic intervention. Please note, the patient is on IV furosemide and IV dobutamine. Agree with current management. 2. Congestive heart failure. Currently, on IV dobutamine and diuresis. Cardiology is following. Overall prognosis remains guarded. Job ID: [id number]
--- NOTE | 2019-12-11 11:43 | PRG ---
DATE OF SERVICE: 12/11/2019 SUBJECTIVE: The patient remains on BiPAP. He is sleeping now. OBJECTIVE: VITAL SIGNS: His blood pressure is 135/83 and pulse is 80 to 90, it is irregular, it is atrial fibrillation. LUNGS: Clear. CARDIAC: Irregularly irregular. ABDOMEN: Soft and nontender. EXTREMITIES: Reduced edema. LABORATORY DATA: His creatinine is stable at 2.1. ASSESSMENT: 1. Chronic obstructive pulmonary disease. 2. Right heart failure with right ventricular enlargement, severe. 3. History of diastolic heart failure, but I think the main problem now is right heart failure secondary to chronic obstructive pulmonary disease. 4. Renal insufficiency. PLAN: Continue the diuretics and he is also on medicines for antibiotic and dobutamine. Consider stopping dobutamine tomorrow. Unfortunately, prognosis is very poor, long-term outcome very poor. Job ID: [id number]
[2019-12-11] MEDS: methylPREDNISolone Sod Succ 40 MG VIAL IVP SCH ×2 (13:11→18:39)
[2019-12-11] MEDS: Polyethylene Glycol 3350 17 GM Packet PO SCH (15:10)
[2019-12-11 18:42] LABS: Actual Bicarbonate (HCO3a) 34.4 mEq/L (22-28); Base Excess (BEa) 8.3 mEq/L (-2.0 to +3.0); CO2 Tension 56.9 mmHg (35.0-45.0); Carboxyhemoglobin (COHb) 1.7 gm% (0.0-3.0); Hemoglobin (Hb) 9.2 g/dL (14.0-18.0); O2 Tension (PaO2) 65.3 mmHg (> 60.0); Potassium - ABG Lab 3.79 mmol/L (3.70-5.30)
--- NOTE | 2019-12-11 18:44 | PDOC.HOSPP ---
- Subjective Encounter Date: 12/11/19 Encounter Time: 15:30 Subjective: The patient was on BIPAP when I saw him. He was able to understand you but couldn't speak back. Difficult to assess complaints - Objective Vital Signs & Weight: Vital Signs (12 hours) Temp Pulse Resp Pulse Ox 12/11/19 18:27 109 H 24 H 98 12/11/19 13:29 74 12/11/19 13:27 89 16 92 L 12/11/19 12:00 98.1 F 12/11/19 11:21 85 12/11/19 09:42 70 12/11/19 08:00 98 12/11/19 07:53 96 12/11/19 07:51 92 13 99 Weight Weight 219 lb Most Recent Monitor Data Heart Rate from ECG 90 NIBP 130/62 NIBP BP-Mean 84 Respiration from ECG 25 SpO2 97 I&O: 12/10/19 12/11/19 12/12/19 06:59 06:59 06:59 Intake Total 1215 750 Output Total 2973 4755 Balance -3804 -4874 Result Diagrams: 12/09/19 03:58 12/11/19 06:24 Hospitalist ROS - Review of Systems Constitutional: denies: fever, chills ENT: denies: ear pain, ear discharge, mouth pain Respiratory: denies: dry, shortness of breath - Medication Medications: Active Medications Generic Name Dose Route Start Last Admin Trade Name Freq PRN Reason Stop Dose Admin Acetazolamide Sodium 500 mg 12/10/19 09:00 12/11/19 09:39 Diamox IVP 500 mg DAILY JONATHAN Administration Albuterol/Ipratropium 3 ml 12/05/19 01:00 12/11/19 18:27 Duoneb NEB 3 ml [id number] JONATHAN Administration Albuterol/Ipratropium 3 ml 12/04/19 19:37 12/08/19 22:24 Duoneb NEB 3 ml [id number] PRN Administration SOB &/or Wheezing Digoxin 0.125 mg 12/06/19 09:00 12/11/19 09:42 Lanoxin PO 0.125 mg DAILY JONATHAN Administration Diltiazem HCl 30 mg 12/05/19 15:00 12/11/19 15:11 Cardizem PO 30 mg TID JONATHAN Administration Famotidine 20 mg 12/05/19 21:00 12/10/19 23:21 Pepcid PO 20 mg QPM JONATHAN Administration Fentanyl 6.25 mcg 12/05/19 11:16 12/09/19 17:42 Sublimaze SLOW IVP 6.25 mcg Q6H PRN Administration Pain Fentanyl 50 mcg 12/10/19 09:00 12/10/19 11:08 Duragesic TD 50 mcg Q3D JONATHAN Administration Furosemide 20 mg 12/10/19 14:00 12/11/19 13:14 Lasix SLOW IVP 20 mg 0600,1400 JONATHAN Administration Cefepime HCl 2 gm/ Sodium 100 mls @ 200 mls/hr 12/05/19 05:00 12/11/19 18:38 Chloride IVPB 100 mls 0500,1700 JONATHAN Administration Dobutamine HCl/Dextrose 250 mls @ 7.529 mls/hr 12/10/19 08:51 12/11/19 15:11 Dobutamine 500 Mg/250 Ml IVPB 250 mls INF JONATHAN Administration Protocol 2.5 MCG/KG/MIN Methylprednisolone Sodium Succinate 20 mg 12/11/19 12:00 12/11/19 18:39 Solu-Medrol IVP 20 mg Q6HR JONATHAN Administration Ondansetron HCl 4 mg 12/04/19 19:33 12/09/19 15:09 Zofran Odt PO 4 mg Q6H PRN Administration Nausea/Vomiting Ondansetron HCl 4 mg 12/04/19 19:33 12/05/19 22:00 Zofran IVP 4 mg Q6H PRN Administration Nausea/Vomiting Polyethylene Glycol 17 gm 12/05/19 09:00 12/11/19 15:10 Miralax PO Not Given DAILY JONATHAN Spironolactone 50 mg 12/10/19 09:00 12/11/19 09:42 Aldactone PO 50 mg DAILY JONATHAN Administration Sterile Water 10 ml 12/10/19 09:00 12/11/19 09:43 Water For Injection IVP 10 ml DAILY JONATHAN Administration Tamsulosin HCl 0.4 mg 12/04/19 21:00 12/10/19 23:21 Flomax PO 0.4 mg QPM JONATHAN Administration Warfarin Sodium 1 mg 12/09/19 17:00 12/10/19 17:41 Coumadin PO 1 mg 1700 JONATHAN Administration - Exam General Appearance: NAD, awake alert General - other findings: on BIPAP Eye: anicteric sclera Neck: supple, symmetric, no JVD Heart: no murmur, no gallops, no rubs, irregular Respiratory - other findings: bilateral rales Gastrointestinal: soft, non-tender, non-distended Extremities: no cyanosis, no clubbing, no edema Skin: normal turgor, no lesions, no rashes Hosp A/P (1) CAP (community acquired pneumonia) Code(s): J18.9 - PNEUMONIA, UNSPECIFIED ORGANISM Status: Acute (2) CHF exacerbation Code(s): I50.9 - HEART FAILURE, UNSPECIFIED Status: Acute Qualifiers: Heart failure type: diastolic Qualified Code(s): I50.33 - Acute on chronic diastolic (congestive) heart failure (3) Atrial fibrillation with RVR Code(s): I48.91 - UNSPECIFIED ATRIAL FIBRILLATION Status: Acute - Plan This is an 84 year old male with history of aortic stenosis, systolic CHF who presented with worsening shortness of breath on exertion Acute hypoxic/hypercapneic respiratory failure secondary to COPD exacerbation vs pneumonia vis heart failure - on IV dobutamine, IV lasix and acetazolamide per cardiology - continue dobutamine for one more day - BIPAP taken off this afternoon but patient drowsy again, so repeat blood gas shows improvement in PCO2 to 52 and pH 7.4 - started IV steroids by pulmonology - poor prognosis, discussed with the family LEukopenia - WBC 2.4, stable no fevers Anemia - hemoglobin 7.4 - check iron panel LIZ - likely cardiorenal - creatinine improving to 2.1 - UA unremarkable Code status: full code
[2019-12-11 18:45] LABS: ALV-art Gradient 91.735 (0-20); Puncture Site LRA
--- NOTE | 2019-12-11 19:44 | RAD ---
ONE VIEW CHEST: 12/11/19 COMPARISON: 12/08/19, 12/04/19. HISTORY: Bilateral rhonchi. FINDINGS: Stable cardiomegaly and atherosclerosis. Stable linear density in the right mid lung. Increased opaci fication in the right lower lobe and increased opacification in the left lower lobe likely represent bibasilar lung parenchymal consolidation with superimposed pleural effusion. There is no pneumothorax or acute osseous abnormalities. Chronic changes in the right shoulder joint. IMPRESSION: Worsening opacification in the lung bases. Better interrogation with chest CT is recommended. POS: PPP
[2019-12-11] MEDS ORDERED: Furosemide 40 MG/4 ML VIAL SLOW IVP SCH (19:45)
[2019-12-11] MEDS: Tamsulosin HCl 0.4 MG CAP PO SCH (20:02)
[2019-12-11] MEDS: Warfarin Sodium 1 MG TAB PO SCH (20:02)
[2019-12-11] MEDS: Famotidine 20 MG TAB PO SCH (20:02)
[2019-12-12] MEDS: methylPREDNISolone Sod Succ 40 MG VIAL IVP SCH ×4 (00:49→16:42)
[2019-12-12] MEDS: Cefepime 2 GM in Sodium Chloride 0.9% 100 ML IVPB SCH ×2 (05:03→16:42)
[2019-12-12] MEDS: Furosemide 20 MG/2 ML VIAL SLOW IVP SCH ×2 (05:04→14:43)
[2019-12-12 06:32] LABS: INR-International Normal Ratio 2.2; Prothrombin Time 24.2 SEC (12.0-14.7)
[2019-12-12 06:40] LABS: Albumin 3.3 g/dL (3.4-4.8); Anion Gap 11 mmol/L (10-20); BUN (Urea Nitrogen) 75 mg/dL (8.4-25.7); BUN/Creatinine Ratio 33.78; Calc. Creatinine Clearance 34 mL/min (70-130); Calcium 9.2 mg/dL (7.8-10.44); Carbon Dioxide 34 mmol/L (23-31); Chloride 104 mmol/L (98-107); Estimated GFR-MDRD 28; Glucose 138 mg/dL (83-110); Phosphorus 4.6 mg/dL (2.3-4.7); Potassium 3.8 mmol/L (3.5-5.1); Sodium 145 mmol/L (136-145)
[2019-12-12] MEDS: Polyethylene Glycol 3350 17 GM Packet PO SCH (07:51)
[2019-12-12] MEDS: Digoxin 0.125 MG TAB PO SCH (08:45)
[2019-12-12] MEDS: Sterile Water 10 ML VIAL IVP SCH (08:45)
[2019-12-12] MEDS: acetaZOLAMIDE Sodium 500 mg Vial IVP SCH (08:45)
[2019-12-12] MEDS: Spironolactone 25 MG TAB PO SCH (08:45)
--- NOTE | 2019-12-12 09:38 | PRG ---
DATE OF SERVICE: 12/12/2019 SUBJECTIVE: Mr. Verdugo is 84-year-old white male, followed up for his acute renal disease failure secondary to hemodynamically-mediated renal dysfunction. He was initially admitted for CHF. He continues to be on IV dobutamine and is currently on a diuretic regimen. Renal function is stable. No acute events noted last night. OBJECTIVE: VITAL SIGNS: Blood pressure is noted at 113/74 with heart rate of 98, respiratory rate 27, and pulse ox 99%. GENERAL: He is noted to be awake, alert, lethargic, not in overt distress. SKIN: Adequate turgor. HEENT: He has slightly pale conjunctivae. Anicteric sclerae. NECK: No neck mass. No carotid bruits. No JVD. CHEST: No deformities. LUNGS: Decreased breath sounds. No wheezing. No crackles. HEART: Normal sinus rhythm. No murmurs, gallops, or rubs. ABDOMEN: Globular, soft, nontender. No masses. EXTREMITIES: No edema. MEDICATIONS: Medications of December 12, 2019, were reviewed. LABORATORY DATA: Laboratories of December 09, 2019; hemoglobin 7.4. On December 12, 2019; sodium 145, potassium 3.8, chloride 104, carbon dioxide 34, BUN 75, creatinine 2.22, calcium 9.2, phosphorus 4.6. Albumin 3.3. ASSESSMENT AND PLAN: Acute kidney injury - superimposed hemodynamically-mediated dysfunction secondary to congestive heart failure. Currently on IV dobutamine and is still currently on diuretic regimen. Our plan is simply to observe him. Continue current diuresis. Continue to optimize hemodynamics. No indication for any dialytic intervention. His overall prognosis remains poor. Job ID: [id number]
--- NOTE | 2019-12-12 11:45 | PRG ---
DATE OF SERVICE: 12/12/2019 SUBJECTIVE: The patient continues on BiPAP. He does not look like he is doing very well at all. He will follow commands for me, which he was not doing yesterday. OBJECTIVE: VITAL SIGNS: Temperature 97.1, pulse 100, blood pressure 127/64. HEENT: Remarkable for some mild bitemporal wasting. NECK: No adenopathy or JVD. LUNGS: Coarse breath sounds. CARDIAC: S1, S2. Regular. ABDOMEN: Soft. EXTREMITIES: No edema. LABORATORY DATA: INR is 2.2. Sodium 145, potassium 3.8, chloride 104, CO2 of 34, BUN 75, creatinine 2.2, and glucose 138. DIAGNOSTIC DATA: A chest x-ray from yesterday demonstrates bilateral pulmonary edema and fluid in the horizontal fissure. ASSESSMENT: 1. Chronic obstructive pulmonary disease. 2. Right-sided heart failure. 3. Pulmonary edema. 4. Renal insufficiency. PLAN: This patient's situation continues to deteriorate despite aggressive therapy. I think at this point, it would be prudent to get the family together and discuss goals of care as I do not see this improving. It looks like palliative care is having ongoing discussions with the patient's son. I have reviewed the orders in the chart and I agree with the diuretics, dobutamine, and continue noninvasive ventilation. Job ID: [id number]
--- NOTE | 2019-12-12 14:00 | PRG ---
DATE OF SERVICE: 12/12/2019 SUBJECTIVE: Mr. Verdugo is on a BiPAP. OBJECTIVE: VITAL SIGNS: His heart rate is higher at the 110 range, atrial fibrillation; blood pressure 140/70. LUNGS: No wheezing. CARDIAC: Irregular. ABDOMEN: Soft and nontender. EXTREMITIES: Reduced edema. PERTINENT LABORATORY: Hemoglobin is down to 7.4 and hematocrit 25.2. Creatinine is 2.22. ASSESSMENT: 1. Right heart failure probably secondary to lung disease. 2. Chronic atrial fibrillation. 3. Stage 4 renal failure. 4. Anemia. PLAN: 1. We will go ahead and wean and turn off dobutamine, it did not seem to help clinically. 2. He is on some furosemide as well as acetazolamide. 3. We will reduce spironolactone to 25 mg a day. The patient does not seem to be improving. The prognosis is very poor. Job ID: [id number]
[2019-12-12] MEDS ORDERED: Lorazepam 2 MG/ML VIAL SLOW IVP PRN (15:20)
[2019-12-12] MEDS: Morphine 4 MG/ML VIAL SLOW IVP PRN ×2 (15:31→22:34)
--- NOTE | 2019-12-12 15:31 | PRG ---
DATE OF SERVICE: 12/12/2019 Mr. Verdugo continues to deteriorate through the afternoon. I spoke to Palliative Care, who had been talking with the son. I then talked to the son personally over the phone. His son is a [employer] electric screw driver operator and seems somewhat inconvenience by his dad's current state. I told him that his dad was dying and there was not much I could do to help. His dad was full code previously. I told him from what I knew of his dad, I did not think that he would want to be on life support without hope of getting better. The son agreed with that statement and agreed to go forward with a DNR and comfort medication. We will continue the BiPAP and other medicines for the time being. Job ID: [id number]
[2019-12-12] MEDS: Warfarin Sodium 1 MG TAB PO SCH (15:47)
--- NOTE | 2019-12-12 17:35 | PDOC.HOSPP ---
- Subjective Encounter Date: 12/12/19 Encounter Time: 15:30 Subjective: The patient was taken of BIPAP last night and placed back on it this morning. DId not seem to tolerate without it per nursing. He was made DNR by Dr. Bai today. Was taken off dobutamine by cardiology today since it was thought to not help. Patient got extra 40 mg IV lasix yesterday - Objective Vital Signs & Weight: Vital Signs (12 hours) Temp Pulse Resp BP Pulse Ox 12/12/19 16:00 138/66 12/12/19 15:44 97.2 F L 12/12/19 15:00 146/64 H 12/12/19 14:00 148/66 H 12/12/19 13:00 154/74 H 12/12/19 12:57 120 H 23 H 99 12/12/19 12:00 155/64 H 12/12/19 11:49 95 12/12/19 11:20 96.9 F L 12/12/19 11:00 131/65 12/12/19 08:45 98 12/12/19 07:49 98 12/12/19 07:47 102 H 27 H 99 12/12/19 07:32 98 12/12/19 07:24 97.1 F L Weight Weight 211 lb 12.8 oz Most Recent Monitor Data Heart Rate from ECG 94 NIBP 127/64 NIBP BP-Mean 85 Respiration from ECG 24 SpO2 93 I&O: 12/11/19 12/12/19 12/13/19 06:59 06:59 06:59 Intake Total 750 100 Output Total 8552 9526 Balance -3990 -8619 Result Diagrams: 12/09/19 03:58 12/12/19 05:00 Hospitalist ROS - Medication Medications: Active Medications Generic Name Dose Route Start Last Admin Trade Name Freq PRN Reason Stop Dose Admin Acetazolamide Sodium 500 mg 12/10/19 09:00 12/12/19 08:45 Diamox IVP 500 mg DAILY JONATHAN Administration Albuterol/Ipratropium 3 ml 12/05/19 01:00 12/12/19 12:57 Duoneb NEB 3 ml [id number] JONATHAN Administration Albuterol/Ipratropium 3 ml 12/04/19 19:37 12/08/19 22:24 Duoneb NEB 3 ml [id number] PRN Administration SOB &/or Wheezing Digoxin 0.125 mg 12/06/19 09:00 12/12/19 08:45 Lanoxin PO 0.125 mg DAILY JONATHAN Administration Diltiazem HCl 30 mg 12/05/19 15:00 12/12/19 14:43 Cardizem PO Not Given TID JONATHAN Famotidine 20 mg 12/05/19 21:00 12/11/19 20:02 Pepcid PO 20 mg QPM JONATHAN Administration Fentanyl 6.25 mcg 12/05/19 11:16 12/09/19 17:42 Sublimaze SLOW IVP 6.25 mcg Q6H PRN Administration Pain Fentanyl 50 mcg 12/10/19 09:00 12/10/19 11:08 Duragesic TD 50 mcg Q3D JONATHAN Administration Furosemide 20 mg 12/10/19 14:00 12/12/19 14:43 Lasix SLOW IVP 20 mg 0600,1400 JONATHAN Administration Cefepime HCl 2 gm/ Sodium 100 mls @ 200 mls/hr 12/05/19 05:00 12/12/19 16:42 Chloride IVPB 100 mls 0500,1700 JONATHAN Administration Methylprednisolone Sodium Succinate 20 mg 12/11/19 12:00 12/12/19 16:42 Solu-Medrol IVP 20 mg Q6HR JONATHAN Administration Morphine Sulfate 4 mg 12/12/19 15:20 12/12/19 15:31 Morphine SLOW IVP 4 mg Q1H PRN Administration dyspnea Ondansetron HCl 4 mg 12/04/19 19:33 12/09/19 15:09 Zofran Odt PO 4 mg Q6H PRN Administration Nausea/Vomiting Ondansetron HCl 4 mg 12/04/19 19:33 12/05/19 22:00 Zofran IVP 4 mg Q6H PRN Administration Nausea/Vomiting Polyethylene Glycol 17 gm 12/05/19 09:00 12/12/19 07:51 Miralax PO Not Given DAILY JONATHAN Sterile Water 10 ml 12/10/19 09:00 12/12/19 08:45 Water For Injection IVP 10 ml DAILY JONATHAN Administration Tamsulosin HCl 0.4 mg 12/04/19 21:00 12/11/19 20:02 Flomax PO 0.4 mg QPM JONATHAN Administration Warfarin Sodium 1 mg 12/09/19 17:00 12/12/19 15:47 Coumadin PO Not Given 1700 JONATHAN - Exam General Appearance: NAD, awake alert Eye: PERRL, anicteric sclera ENT: normocephalic atraumatic, no oropharyngeal lesions Neck: supple, symmetric, no JVD, no thyromegaly Heart: RRR, no murmur, no gallops, no rubs Respiratory: CTAB, no wheezes, no rales, no ronchi Gastrointestinal: soft, non-tender, non-distended, normal bowel sounds Extremities: no cyanosis, no clubbing, no edema Skin: normal turgor, no lesions, no rashes Neurological: cranial nerve grossly intact, normal sensation to touch, no focal deficits, no new deficit Musculoskeletal: normal tone, normal strength, no muscle wasting Hosp A/P (1) CAP (community acquired pneumonia) Code(s): J18.9 - PNEUMONIA, UNSPECIFIED ORGANISM Status: Acute (2) CHF exacerbation Code(s): I50.9 - HEART FAILURE, UNSPECIFIED Status: Acute Qualifiers: Heart failure type: diastolic Qualified Code(s): I50.33 - Acute on chronic diastolic (congestive) heart failure (3) Atrial fibrillation with RVR Code(s): I48.91 - UNSPECIFIED ATRIAL FIBRILLATION Status: Acute - Plan Consults: Palliative Care This is an 84 year old male with history of aortic stenosis, systolic CHF who presented with worsening shortness of breath on exertion Acute hypoxic/hypercapneic respiratory failure secondary to COPD exacerbation vs pneumonia vis heart failure - was on IV dobutamine, IV lasix and acetazolamide per cardiology. IV dobutamine discontinued - still on BIPAP and IV steroids - poor prognosis overall - patient made DNR/DNI - continue IV cefepime day 8 LEukopenia - WBC 2.4, stable no fevers Anemia - hemoglobin 7.4 - ferritin was 53, iron 11. Will check iron sat LIZ - likely cardiorenal - creatinine increased to 2.2 with extra lasix. Will recheck BMP tomorrow - UA unremarkable Code status: full code
--- NOTE | 2019-12-12 19:08 | RAD ---
EXAM: CHEST ONE VIEW: 12/12/19 HISTORY: Shortness of breath. COMPARISON: 12/11/2019. FINDINGS: Stable cardiomegaly and atherosclerosis. Stable bilateral pleural effusions with adjacent parenchymal changes. Diffuse interstitial and alveolar opacities remain. Stable thickening of the minor fissure. No pneumothorax. IMPRESSION: No significant interval change. Consider CT for further interrogation. POS: PPP
[2019-12-12] MEDS: Famotidine 20 MG TAB PO SCH (21:30)
[2019-12-12] MEDS: Tamsulosin HCl 0.4 MG CAP PO SCH (21:30)
[2019-12-13] MEDS: methylPREDNISolone Sod Succ 40 MG VIAL IVP SCH ×2 (01:15→05:17)
[2019-12-13 03:32] LABS: #Lymphocytes 0.5 thou/uL (1.20-3.40); #Monocytes 0.5 thou/uL (0.11-0.59); %Basophils 0.1 % (0.0-1.0); %Lymphocytes 4.5 % (21.0-51.0); %Monocytes 5.2 % (0.0-10.0); %Neutrophils 90.2 % (42.0-75.0); Hemoglobin 8.8 g/dL (14.0-18.0); Mean Corpuscular HGB CONC 31.8 g/dL (32.0-36.0); Mean Corpuscular Hemoglobin 27.9 pg (27.0-31.0); Mean Corpuscular Volume 87.5 fL (78.0-98.0); Mean Platelet Volume 9.4 fL (7.4-10.4); Platelet Count 141 thou/uL (130-400); RBC Distribution Width 18.1 % (11.5-14.5); Red Blood Cell (RBC) Count 3.16 mill/uL (4.70-6.10)
[2019-12-13 03:38] LABS: INR-International Normal Ratio 2.4; Prothrombin Time 26.3 SEC (12.0-14.7)
[2019-12-13 04:22] LABS: Albumin 3.6 g/dL (3.4-4.8); Anion Gap 14 mmol/L (10-20); BUN (Urea Nitrogen) 87 mg/dL (8.4-25.7); BUN/Creatinine Ratio 33.33; Calc. Creatinine Clearance 29 mL/min (70-130); Calcium 9.5 mg/dL (7.8-10.44); Carbon Dioxide 33 mmol/L (23-31); Chloride 104 mmol/L (98-107); Estimated GFR-MDRD 24; Glucose 148 mg/dL (83-110); Phosphorus 5.6 mg/dL (2.3-4.7); Potassium 3.9 mmol/L (3.5-5.1); Sodium 147 mmol/L (136-145)
[2019-12-13] MEDS: Cefepime 2 GM in Sodium Chloride 0.9% 100 ML IVPB SCH (05:16)
[2019-12-13] MEDS: Furosemide 20 MG/2 ML VIAL SLOW IVP SCH (05:17)
[2019-12-13] MEDS: Morphine 4 MG/ML VIAL SLOW IVP PRN ×3 (05:19→11:50)
[2019-12-13] MEDS: Digoxin 0.125 MG TAB PO SCH (07:58)
[2019-12-13] MEDS: Polyethylene Glycol 3350 17 GM Packet PO SCH (07:58)
[2019-12-13 08:00] LABS: ALT (SGPT) 17 U/L (8-55); AST (SGOT) 17 U/L (5-34); Albumin 3.6 g/dL (3.4-4.8); Alkaline Phosphatase 105 U/L (40-110); Bilirubin, Direct 0.5 mg/dL (0.1-0.3); Bilirubin, Total 0.7 mg/dL (0.2-1.2); Protein, Total 6.8 g/dL (5.8-8.1)
--- NOTE | 2019-12-13 08:45 | PRG ---
DATE OF SERVICE: 12/13/2019 SUBJECTIVE: He continues to look very bad. He is on BiPAP and looks somewhat uncomfortable. OBJECTIVE: VITAL SIGNS: Temperature 98.3, pulse 80, blood pressure 133/91, O2 saturation in the low 90s. HEENT: Bitemporal wasting present. NECK: No JVD. LUNGS: Coarse breath sounds. CARDIAC: S1 and S2. Irregularly irregular. ABDOMEN: Soft. EXTREMITIES: No edema. LABORATORY DATA: Sodium 147, potassium 3.9, chloride 104, CO2 of 33, BUN 87, creatinine 2.6, and glucose 148. INR 2.4. White blood cell count 10, hematocrit 27.7, and platelet count 141. ASSESSMENT: Generalized failure to thrive with worsening cardiopulmonary status despite aggressive treatment. RECOMMENDATION: I think the situation is hopeless and we should concentrate strictly on palliative measures. The patient is now a DNAR. Job ID: [id number]
[2019-12-13] MEDS ORDERED: Spironolactone 25 MG TAB PO SCH (09:00)
[2019-12-13 10:22] VITALS: BP 138/64
[2019-12-13] MEDS: fentaNYL 50 mcg/hour Patch TD SCH (11:21)
[2019-12-13] MEDS ORDERED: Lorazepam 2 MG/ML VIAL SLOW IVP SCH (12:00)
[2019-12-13] MEDS ORDERED: Lorazepam 2 MG/ML VIAL SLOW IVP PRN (12:01)
[2019-12-13 12:02] VITALS: TEMP 97.7
--- NOTE | 2019-12-13 13:35 | PDOC.PALPN ---
Palliative Progress Note - Subjective Patient remains on BiPap, lethargic and restless. - Objective Vital Signs: Vital Signs - Most Recent Temp Pulse Resp BP Pulse Ox 97.7 F 96 30 H 138/64 91 L 12/13/19 12:00 12/13/19 08:13 12/13/19 08:12 12/13/19 10:00 12/13/19 08:12 - Physical Exam Constitutional: confusion, encephalitic, ill appearing, moderate distress HEENT: EOMI, moist MMs, sclera anicteric Respiratory: accessory muscle use, diminished lung sound, labored respirations Cardiovascular: RRR Gastrointestinal: non-tender, incontinent Genitourinary: moya catheter Musculoskeletal: no clubbing, muscle wasting Neurology: moves all 4 limbs Skin: fragile, friable Deviation from normal: encephalopathic - Assessment (1) Palliative care encounter Code(s): Z51.5 - ENCOUNTER FOR PALLIATIVE CARE Status: Acute (2) Physical deconditioning Code(s): R53.81 - OTHER MALAISE Status: Acute (3) Acute worsening of stage 3 chronic kidney disease Code(s): N18.3 - CHRONIC KIDNEY DISEASE, STAGE 3 (MODERATE) Status: Acute (4) CHF exacerbation Code(s): I50.9 - HEART FAILURE, UNSPECIFIED Status: Acute Qualifiers: Heart failure type: diastolic Qualified Code(s): I50.33 - Acute on chronic diastolic (congestive) heart failure (5) Acute on chronic respiratory failure with hypoxia and hypercapnia Code(s): J96.21 - ACUTE AND CHRONIC RESPIRATORY FAILURE WITH HYPOXIA; J96.22 - ACUTE AND CHRONIC RESPIRATORY FAILURE WITH HYPERCAPNIA Status: Acute (6) COPD exacerbation Code(s): J44.1 - CHRONIC OBSTRUCTIVE PULMONARY DISEASE W (ACUTE) EXACERBATION Status: Acute (7) Community acquired bacterial pneumonia Code(s): J15.9 - UNSPECIFIED BACTERIAL PNEUMONIA Status: Acute (8) Hypertension Code(s): I10 - ESSENTIAL (PRIMARY) HYPERTENSION Status: Chronic Qualifiers: Hypertension type: essential hypertension Qualified Code(s): I10 - Essential (primary) hypertension - Plan Plan:Call son at 10 and arranged for a family meeting at 11am. Amanda Barker RNasbestos brake lining finisher helper and myself revisited poor chance of meaningful recovery and revisited with patient son and his what "Mr Verdugo would desire". Family understanding of patient poor prognosis and continued decline. Family wishes to transition to comfort measures to prevent suffering and mange symptoms. *Communicated with Skye Bai and Kulwant *Comfort measures *Spiritual Care notified, Matthew present *Family support [90] minutes spent on this encounter with >50% of the time in counseling and coordination of care. - ROS Non Response: due to mental status
--- NOTE | 2019-12-13 16:07 | PDOC.EVN ---
Event Note - Event Note Event Note: I was told patient had at 11:38 am. Family agreed to comfort measures and BIPAP mask was taken off. Upon arrival, patient was noted to have no heart or breath sounds, no pulses, no corneal or pupillary reflex. Patient was pronounced . Family requested no autopsy.
--- NOTE | 2019-12-14 02:53 | PQF ---
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 Clinical indicators are provided on the bottom of this form for your review Can you please further clarify if Sepsis is ruled in or ruled out? Sepsis [ ] Ruled in diagnosis [ ] Continue to treat [ ] Resolved [ ] Ruled out diagnosis [ X ] Cannot rule out diagnosis [ ] Other diagnosis [ ] Unable to determine In addition, please specify: Present on Admission (POA): [ ] Yes [ ] No [ ] Unable to determine For continuity of documentation, please document condition throughout progress notes and discharge summary. Thank You. CLINICAL INDICATORS - SIGNS / SYMPTOMS / LABS ED Provider pg.4- Pneumonia, hypoxia, Sepsis ED Provider pg.2- Pulse tachycardic ED Provider pg.2- vital signs BP 118/61, pulse 110, RR 22, Temp 98.1 H and P pg.1- in ER, the patient was found to be hypoxic with increased work of breathing H and P pg.1- admitted to ICU H and P pg.4- Pneumonia without any evidence of Sepsis RISK FACTORS 84 years old- H and P pg.1 Severe COPD- H and P pg.1 Systolic CHF- Hand P pg.1 Acute on Chronic respiratory failure- H and P pg.2 LIZ- H and P pg.2 Metabolic Encephalopathy-PN pg.2 Dr. Greenberg 12/08 Bacterial Pneumonia- Palliative Consult pg.3 TREATMENTS Chest X ray 12/04 BiPaP Mask- H and P pg.1 Pulmonary Consult 12/05 Dr. Garcia IV Fluid- MAR IV antibiotics- MAR Blood culture- Microbiology Palliative Consult (This form is maintained as a part of the permanent medical record) 2014 [employer], [employer]. All Rights Reserved [email or web address]
--- NOTE | 2019-12-14 15:19 | DIS ---
DATE OF ADMISSION: 12/04/2019 DATE OF DISCHARGE: 12/13/2019 DISCHARGE DIAGNOSES: 1. Acute hypoxic/hypercapnic respiratory failure, secondary to chronic obstructive pulmonary disease exacerbation versus pneumonia versus heart failure. 2. Leukopenia. 3. Anemia. 4. Acute kidney injury. 5. Hypernatremia. CONSULTATIONS: 1. Dr. Luis Manuel Willis with Cardiology. 2. Dr. Yordy Garcia with Pulmonary. 3. Dr. Paramjit Jimenez with Nephrology. 4. Lorie Mesa, with Palliative Care. BRIEF HISTORY OF PRESENT ILLNESS: This is an 84-year-old male with a past medical history of severe COPD, systolic CHF, and severe aortic stenosis, who presented with worsening lower extremity edema. The patient had a chest x-ray which showed pneumonia in the left middle lung area and possible pneumonia in the right. He had an ABG done, which showed pH of 7.44 and pCO2 of 62.4. The patient was noted to have some hyperkalemia and his creatinine was up to 1.8. He was given IV vancomycin and cefepime, and was placed on BiPAP. The patient was admitted to the ICU. The patient was started on IV Lasix 40 mg b.i.d. in addition to IV antibiotics due to edema. HOSPITAL COURSE: Acute hypoxic respiratory failure, secondary to COPD exacerbation versus pneumonia versus acute systolic heart failure: The patient initially received IV Lasix, vancomycin, cefepime, DuoNebs, and steroids. Initially he improved, but then the patient's creatinine continued to increase from 1.55 up to 1.99. Nephrology was consulted on 12/07. He was started on IV albumin infusion for concern for hepatorenal syndrome. The patient became more lethargic on 12/08. ABG showed pH 7.3, PCO2 70. He was transferred to the [facility] for BIPAP. The patient underwent an abdominal ultrasound on 12/08, which showed ascites, gallbladder wall thickening, and no gallstones. He was started on diamox and was started on a low dose dobutamine drip with cardiology consultation. The patient continued to remain on dobutamine drip over for another few more days. He was trialed off the BiPAP again, but due to increased respiratory rate in the 30s to 40s, he was placed back on BiPAP on the night of the . IV steroids were restarted per Pulmonology. On the , Cardiology made the patient DNR/DNI, and his IV dobutamine was discontinued because it was thought to not help. Dr. Bai and Cardiology recommended palliative care and comfort measures. The patient was taken off his BiPAP on the . The patient shortly after. The patient was pronounced at 12:38 a.m. The patient's family declined an autopsy. Leukopenia: The patient had a white blood cell count of 2.4; however, this improved, and his white count increased to 10.0. There were no fevers. Anemia: The patient had a ferritin of 53 and iron of 11. He did receive IV iron previously during this hospitalization. Acute kidney injury: The patient had a creatinine of 1.8 on admission, which increased up to 2.61 at the time of . This was initially thought to be cardiorenal. The patient was given IV Lasix. However, due to worsening renal function, was switched to dobutamine. However, there was no significant improvement in his creatinine. The patient . DISCHARGE PHYSICAL EXAMINATION: The patient was pronounced at 12:38 a.m. He had no heart or lung sounds. No pupil or corneal reflex. He was not responsive to sternal rub. PERTINENT LABORATORY DATA: CBC 12/13: White count 10.0, hemoglobin/hematocrit 8.8/27.7. BMP 12/13: Sodium 147, creatinine 2.61. LFTs 12/10: AST 24, ALT 20, alkaline phosphatase 101. ABG 12/11: PH 7.40, pCO2 of 56.9, PO2 of 65.3. UA 12/07: Normal. PERTINENT IMAGING: Chest x-ray on 12/04: Shows developing pneumonia in the left mid lung zone. Improvement in right pleural effusion as well as significant interval improvement in the area of consolidation, interstitial and alveolar opacities in the right upper lobe. Abdominal ultrasound on 12/08: Possibly cirrhosis. Marked gallbladder wall thickening, edematous changes without gallstones. Ascites. Chest x-ray 12/08: Stable appearing chest with bilateral pleural effusions and increased linear interstitial markings throughout both lungs without new confluent pneumonia. CT brain 12/08: Shows no mass or bleed. Chest x-ray 12/11: Worsening opacification in the lung bases. Chest x-ray 12/12: Shows no significant interval change. DISCHARGE CONDITION: The patient is . Job ID: [id number] [id number]
== END 2019-12-13 15:59 | disposition expired | DRG 871 ==
LOC: ERS 15:15 → ERHOLD 17:10 → 2NO 12-05 02:34 → IMCU/EMU 12-08 19:55
PROVIDERS: ADMIT Emergency Medicine; ATTEND Emergency Medicine
PROC: 5A09557 Assistance with Respiratory Ventilation, Greater than 96 Consecutive Hours, Continuous Positive Airway Pressure (ICD-10-PCS; principal; 2019-12-04)
DX: A41.9 Sepsis, unspecified organism (principal); J96.21 Acute and chronic respiratory failure with hypoxia; J96.22 Acute and chronic respiratory failure with hypercapnia; I50.43 Acute on chronic combined systolic (congestive) and diastolic (congestive) heart failure; G93.41 Metabolic encephalopathy; J15.9 Unspecified bacterial pneumonia; I13.0 Hypertensive heart and chronic kidney disease with heart failure and stage 1 through stage 4 chronic kidney disease, or unspecified chronic kidney disease; J44.0 Chronic obstructive pulmonary disease with (acute) lower respiratory infection; J44.1 Chronic obstructive pulmonary disease with (acute) exacerbation; I48.20 Chronic atrial fibrillation, unspecified; N17.9 Acute kidney failure, unspecified; N18.4 Chronic kidney disease, stage 4 (severe); R18.8 Other ascites; E87.0 Hyperosmolality and hypernatremia; E87.2 Acidosis; Z66 Do not resuscitate; Z51.5 Encounter for palliative care; M19.90 Unspecified osteoarthritis, unspecified site; I35.0 Nonrheumatic aortic (valve) stenosis; E87.5 Hyperkalemia; M06.9 Rheumatoid arthritis, unspecified; Z96.641 Presence of right artificial hip joint; N40.0 Benign prostatic hyperplasia without lower urinary tract symptoms; K21.9 Gastro-esophageal reflux disease without esophagitis; I27.20 Pulmonary hypertension, unspecified; K74.60 Unspecified cirrhosis of liver; D50.9 Iron deficiency anemia, unspecified; D63.1 Anemia in chronic kidney disease; D72.819 Decreased white blood cell count, unspecified; Z99.81 Dependence on supplemental oxygen; Z79.51 Long term (current) use of inhaled steroids; Z79.01 Long term (current) use of anticoagulants; Z79.899 Other long term (current) drug therapy; Z87.891 Personal history of nicotine dependence; Z88.1 Allergy status to other antibiotic agents; Z86.73 Personal history of transient ischemic attack (TIA), and cerebral infarction without residual deficits; E86.9 Volume depletion, unspecified; T50.2X5A Adverse effect of carbonic-anhydrase inhibitors, benzothiadiazides and other diuretics, initial encounter; I50.810 Right heart failure, unspecified; T50.3X5A Adverse effect of electrolytic, caloric and water-balance agents, initial encounter; I49.3 Ventricular premature depolarization; R62.7 Adult failure to thrive; Z68.27 Body mass index [BMI] 27.0-27.9, adult
CPT/HCPCS: 36415; 36416; 70450; 71045; 76705; 80048; 80053; 80069; 80162; 80202; 81001; 82140; 82553; 82570; 82728; 82805; 83540; 83605; 83735; 83880; 84156; 84300; 84484; 84540; 85025; 85610; 87040; 87149; 93005; 93306; 93798; 94640; 94660; 96361; 96365; J0692; J1120; J1160; J1200; J1250; J1940; J2060; J2270; J2405; J2916; J2920; J3010; J3370; J3490; J7512; J7620; P9047; Q0162